=== PATIENT | male | born 1945 | race Caucasian/White ===

== ENCOUNTER 2018-05-19 06:42 | Day surgery (SDC) | payer OTHER ==
[2018-05-17 13:20] LABS: Absolute Lymphocytes (CBC) 1.1 K/uL (0.7-4.9); Absolute Monocytes 0.8 K/uL (0.1-1.3); Basophils % 1.3 % (0-1.3); Eosinophils % 2.9 % (0-4.4); Hematocrit 47.1 % (39.6-49.0); Lymphocytes % 15.5 % (15.3-44.8); MPV 8.6 fL (7.6-11.3); Monocytes % 11.4 % (3.3-12.3); RBC Red Blood Cell Count 4.83 M/uL (4.33-5.43)
[2018-05-17 13:23] LABS: Protime INR 0.99
[2018-05-17 13:29] LABS: BUN Blood Urea Nitrogen 8 mg/dL (7-18); Bicarbonate 29 mmol/L (21-32); Glucose Level 129 mg/dL (74-106); Sodium Level 137 mmol/L (136-145)
--- NOTE | 2018-05-17 13:33 | RAD REPORT ---
EXAM DESCRIPTION: Rossi Samuels And Canelo (2 Views)05/17/2018 1:28 pm CLINICAL HISTORY: Preop COMPARISON: 2015 FINDINGS: Lungs are hyperaerated. The lungs appear clear of acute infiltrate. The heart is normal size IMPRESSION: No acute abnormalities displayed
[2018-05-19] MEDS ORDERED: NA CHLORIDE 0.9% 500 ML ONE (07:19)
[2018-05-19] MEDS ORDERED: HEPA 1000U/500MLS 2,000 UNIT/1,000 ML BAG IV ONE (07:19)
[2018-05-19] MEDS ORDERED: LIDOCAINE 1% MPF 30 ML VIAL ONE (07:19)
[2018-05-19] MEDS ORDERED: FENTANYL CITR 100 MCG/2 ML ONE ×2 (08:02→09:33)
[2018-05-19] MEDS ORDERED: HEPARIN 5000 UNIT/ML 1 ML VIAL ONE (08:02)
[2018-05-19] MEDS ORDERED: ATROPINE SULF 1 MG/10 ML SYR IV ONE (08:02)
[2018-05-19] MEDS ORDERED: MIDAZOLAM HCL 2 MG/2 ML INJ ONE ×2 (08:02→08:10)
[2018-05-19] MEDS ORDERED: MAGNES/ALUMIN/SIMET 30ML UCUP PO ONE (09:30)
--- NOTE | 2018-05-19 17:20 | OP ---
Surgeon: Kalia Esparza MD Procedure: Bilateral carotid angiography. Indication: Abnormal carotid Doppler. Procedure Findings: The patient's right internal carotid artery is totally occluded. The patient's left internal carotid artery has heavy ulcerated plaque at the origin, and about a centimeter and a h fdc beyond the origin of the internal carotid, there is an 80% smooth stenosis. I have recommended a carotid endarterectomy on the left. Procedure In Detail: The patient gave informed consent. He was brought to the cardiac label press operator in a fasting state, sedated with Versed, fentanyl, prepared and draped in usual sterile fashion. Right f emoral artery was used. The tissues around the artery were anesthetized with 1% lidocaine. The jai ry was entered with an 18-gauge needle. A short J-wire 4-Mongolian sheath was placed. We used the [facility] to advance the JR4 catheter to the descending aorta, the very origin of it. I advanced it so we c ould angiogram the right coronary artery, left coronary artery selectively. After adequate pictures were taken, we removed the catheter and then took a sheath shot. We saw adequate anatomy to close th e arteriotomy with an Angio-Seal device. This was done without complications. AKIRA/JOY Voice ID: [id number] Report ID: [id number]
== END 2018-05-19 11:10 | disposition home or self-care (01) ==
LOC: CCL 06:42
PROVIDERS: ATTEND Internal Medicine
DX: I65.23 Occlusion and stenosis of bilateral carotid arteries (principal); J44.9 Chronic obstructive pulmonary disease, unspecified; E78.00 Pure hypercholesterolemia, unspecified; E78.6 Lipoprotein deficiency; F17.210 Nicotine dependence, cigarettes, uncomplicated; Z79.82 Long term (current) use of aspirin; Z79.899 Other long term (current) drug therapy; Z82.49 Family history of ischemic heart disease and other diseases of the circulatory system
CPT/HCPCS: 85025; 80048; 36415; 85610; 85730; 71046; 36222; C1893; C1760; J2250 ×2; J3010; J1644

== ENCOUNTER 2018-05-24 19:58 | Observation (INO) | payer OTHER ==
[2018-05-24 20:44] LABS: Absolute Lymphocytes (CBC) 1.6 K/uL (0.7-4.9); Absolute Monocytes 1.1 K/uL (0.1-1.3); Absolute Neutrophil 6.3 K/uL (1.8-8.0); Basophils % 1.3 % (0-1.3); Eosinophils % 3.8 % (0-4.4); Hematocrit 39.6 % (39.6-49.0); Lymphocytes % 16.6 % (15.3-44.8); MPV 7.7 fL (7.6-11.3); Monocytes % 11.9 % (3.3-12.3); RBC Red Blood Cell Count 4.08 M/uL (4.33-5.43)
--- NOTE | 2018-05-24 20:53 | RAD REPORT ---
EXAM DESCRIPTION: US - Extremity Nonvascular Limited - 05/24/2018 8:39 pm CLINICAL HISTORY: Swelling, mass, pain COMPARISON: None. TECHNIQUE: Sonographic evaluation of the right groin performed. FINDINGS: Clinical history indicates cardiac catheterization approximately 1 week earlier. Small benign-appearing lymph nodes are seen in the right groin. Deeper in the right groin near the va sculature there is a 3 centimeter heterogeneous mass. The adjacent common femoral vein and greater sa phenous vein are clear of thrombus. Common femoral artery is not well visualized on this study. Doppl er evaluation shows blood flow within this mass. Finding is most likely a pseudoaneurysm that is almo st fully thrombosed. The pulsating portion of this mass represents a very small percentage of the tot al volume. The mass has hematoma characteristics ; however, the hematoma should not have any internal blood flow component. IMPRESSION: Approximately 3 centimeter heterogeneous mass in the right groin most likely a nearly fu lly thrombosed pseudoaneurysm. No DVT in the adjacent common femoral vein or greater saphenous vein.
[2018-05-24 20:55] LABS: Protime INR 1.01
[2018-05-24 21:02] LABS: ALT/SGPT 10 U/L (12-78); AST/SGOT 13 U/L (15-37); Albumin 2.9 g/dL (3.4-5.0); Alkaline Phosphatase 60 U/L (45-117); BUN Blood Urea Nitrogen 5 mg/dL (7-18); Bicarbonate 24 mmol/L (21-32); Bilirubin Total 0.5 mg/dL (0.2-1.0); Glucose Level 84 mg/dL (74-106); Potassium 4.3 mmol/L (3.5-5.1); Protein, Total 6.3 g/dL (6.4-8.2); Sodium Level 125 mmol/L (136-145)
[2018-05-24] MEDS ORDERED: NA CHLORIDE 0.9% 1,000 ML ONE (21:06)
--- NOTE | 2018-05-24 21:47 | EDPHYS ---
Physician Documentation [facility] Name: Lei Timmons Age: 72 yrs Sex: Male : 1945 Arrival Date: 05/24/2018 Time: 20:04 Bed 24 Private MD: Meek Sevilla E ED Physician Pino Alvarenga HPI: 05/24 20:20 This 72 yrs old Male presents to ER via Ambulatory with complaints of Penile odilia Problem, Problem With Urinary Catheter. 20:20 The patient presents with swelling, tenderness. Onset: The symptoms/episode odilia began/occurred 5 day(s) ago. Modifying factors: The symptoms are alleviated by remaining still, the symptoms are aggravated by movement, pressure. Associated signs and symptoms: The patient has no apparent associated signs or symptoms. Severity of symptoms: At their worst the symptoms were mild, in the emergency department the symptoms are unchanged. The patient has not experienced similar symptoms in the past. Historical: - Allergies: 20:11 No Known Allergies; jd3 - Home Meds: 20:11 Aspirin Oral [Active]; prostate med [Active]; jd3 - PMHx: 20:11 Hypertension; jd3 - PSHx: 20:11 heart cath; jd3 - Immunization history:: Adult Immunizations unknown. - Social history:: Smoking status: Patient uses tobacco products, smokes two packs cigarettes per day. - Ebola Screening: : Patient negative for fever greater than or equal to 101.5 degrees Fahrenheit, and additional compatible Ebola Virus Disease symptoms. - Family history:: not pertinent. ROS: 20:20 Constitutional: Negative for fever, chills, and weight loss, Eyes: Negative for injury, odilia pain, redness, and discharge, ENT: Negative for injury, pain, and discharge, Neck: Negative for injury, pain, and swelling, Cardiovascular: Negative for chest pain, palpitations, and edema, Respiratory: Negative for shortness of breath, cough, wheezing, and pleuritic chest pain, Abdomen/GI: Negative for abdominal pain, nausea, vomiting, diarrhea, and constipation, Back: Negative for injury and pain, Skin: Negative for injury, rash, and discoloration, Neuro: Negative for headache, weakness, numbness, tingling, and seizure, Psych: Negative for depression, anxiety, suicide ideation, homicidal ideation, and hallucinations, Allergy/Immunology: Negative for hives, rash, and allergies, Endocrine: Negative for neck swelling, polydipsia, polyuria, polyphagia, and marked weight changes, Hematologic/Lymphatic: Negative for swollen nodes, abnormal bleeding, and unusual bruising. 20:20 : Positive for ecchymosis. 20:20 MS/extremity: Positive for ecchymosis, of the right inner thigh and medial aspect of right thigh. Exam: 20:20 Constitutional: This is a well developed, well nourished patient who is awake, alert, odilia and in no acute distress. Head/Face: Normocephalic, atraumatic. Eyes: Pupils equal round and reactive to light, extra-ocular motions intact. Lids and lashes normal. Conjunctiva and sclera are non-icteric and not injected. Cornea within normal limits. Periorbital areas with no swelling, redness, or edema. ENT: Nares patent. No nasal discharge, no septal abnormalities noted. Tympanic membranes are normal and external auditory canals are clear. Oropharynx with no redness, swelling, or masses, exudates, or evidence of obstruction, uvula midline. Mucous membranes moist. Neck: Trachea midline, no thyromegaly or masses palpated, and no cervical lymphadenopathy. Supple, full range of motion without nuchal rigidity, or vertebral point tenderness. No Meningismus. Chest/axilla: Normal chest wall appearance and motion. Nontender with no deformity. No lesions are appreciated. Cardiovascular: Regular rate and rhythm with a normal S1 and S2. No gallops, murmurs, or rubs. Normal PMI, no JVD. No pulse deficits. Respiratory: Lungs have equal breath sounds bilaterally, clear to auscultation and percussion. No rales, rhonchi or wheezes noted. No increased work of breathing, no retractions or nasal flaring. Back: No spinal tenderness. No costovertebral tenderness. Full range of motion. Male : Normal genitalia with no discharge or lesions. MS/ Extremity: Pulses equal, no cyanosis. Neurovascular intact. Full, normal range of motion. Neuro: Awake and alert, GCS 15, oriented to person, place, time, and situation. Cranial nerves II-XII grossly intact. Motor strength 5/5 in all extremities. Sensory grossly intact. Cerebellar exam normal. Normal gait. Psych: Awake, alert, with orientation to person, place and time. Behavior, mood, and affect are within normal limits. 20:20 Abdomen/GI: Inspection: bruising, Bowel sounds: normal, Palpation: mild abdominal tenderness, in the right lower quadrant, Liver: no appreciated palpable abnormalities, Hernia: not appreciated. 20:20 Musculoskeletal/extremity: Extremities: grossly normal except: ecchymosis, pain, ROM: full active range of motion, full passive range of motion, Circulation is intact in all extremities. Sensation intact. Compartment Syndrome exam of affected extremity: is normal. Weight bearing: able to fully bear weight, DVT Exam: negative Homans' sign noted on exam, no appreciated bluish discoloration, no erythema, no increased warmth, pain, swelling, tenderness. Vital Signs: 20:11 BP 145 / 75; Pulse 72; Resp 17 S; Temp 99.8(TE); Pulse Ox 96% on R/A; Weight 74.84 kg jd3 (R); Height 6 ft. 0 in. (182.88 cm) (R); Pain 4/10; 21:05 BP 138 / 72; Pulse 70; Resp 18; Pulse Ox 96% on R/A; tl2 22:59 BP 146 / 75; Pulse 60; Resp 18; Pulse Ox 95% on R/A; tl2 20:11 Body Mass Index 22.38 (74.84 kg, 182.88 cm) jd3 MDM: 20:13 Patient medically screened. [facility] 20:23 Data reviewed: vital signs, nurses notes, lab test result(s), radiologic studies, odilia ultrasound. 05/24 20:20 Order name: CBC with Diff [facility] 05/24 20:20 Order name: Comprehensive Metabolic Panel; Complete Time: 21:34 odilia 05/24 20:20 Order name: PT-INR; Complete Time: 21:34 odilia 05/24 20:20 Order name: Ptt, Activated; Complete Time: 21:34 odilia 05/24 20:21 Order name: CBC with Automated Diff; Complete Time: 21:34 EDMS 05/24 21:35 Order name: Alcohol Level; Complete Time: 08:17 odilia 05/24 21:48 Order name: Urine Osmolality; Complete Time: 23:55 odilia 05/24 21:48 Order name: Urine Sodium Random; Complete Time: 23:55 [facility] 05/24 21:48 Order name: Osmolality, Serum; Complete Time: 08:17 odilia 05/24 22:57 Order name: CBC with Automated Diff EDMS 05/24 22:57 Order name: CBC with Automated Diff; Complete Time: 08:17 EDMS 05/24 22:57 Order name: Comprehensive Metabolic Panel EDMS 05/24 22:57 Order name: Comprehensive Metabolic Panel; Complete Time: 08:17 EDMS 05/24 22:57 Order name: Protime (+INR) EDMS 05/24 20:20 Order name: US Extrmty Nonvasular Limited: right groin, with doppler; Complete Time: odilia 21:34 05/24 22:57 Order name: CONS Pharmacy Consult EDMS 05/24 22:57 Order name: NPO EDMS 05/24 22:57 Order name: Protime (+INR); Complete Time: 08:17 EDMS 05/24 22:57 Order name: PTT, Activated Partial Thromb EDMS 05/24 22:57 Order name: PTT, Activated Partial Thromb; Complete Time: 08:17 EDMS Administered Medications: 20:58 Drug: NS 0.9% 1000 ml Route: IV; Rate: 125 ml/hr; Site: right antecubital; tl2 22:51 Drug: Thiamine 100 mg Route: IV; Rate: bolus; Site: right forearm; tl2 Disposition: 05/24/18 21:46 Hospitalization ordered by Geoffrey Heller for Observation. 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 - Bed requested for Telemetry/MedSurg (observation). - Status is Observation. ss - Condition is Stable. - Problem is new. - Symptoms have improved. UTI on Admission? No Signatures: Dispatcher [employer] EDFL Salima Holguin RN RN kl Anderson, Corey, MD MD cha Smirch, Shelby, RN RN ss Knox, Taylor, RN RN tl2 Vidal Malcolm RN RN Tamica Hernandez ar5 Corrections: (The following items were deleted from the chart) 23:51 21:46 Hospitalization Ordered by Geoffrey Heller MD for Observation. 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 Bed requested for Telemetry/MedSurg (observation). Status is Observation. Condition is Stable. Problem is new. Symptoms have improved. UTI on Admission? No. odilia 05/25 05:46 05/24 23:51 05/24/2018 21:46 Hospitalization Ordered by Geoffrey Heller MD for kl Observation. 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 Bed requested for [facility] ER HOLD. Status is Observation. Condition is Stable. Problem is new. Symptoms have improved. UTI on Admission? No. ar5 05/25 08:24 05:46 05/24/2018 21:46 Hospitalization Ordered by Geoffrey Heller MD for Observation. 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 Bed requested for Telemetry/MedSurg (observation). Status is Observation. Condition is Stable. Problem is new. Symptoms have improved. UTI on Admission? No. kl
--- NOTE | 2018-05-24 21:47 | ER ---
Nurse's Notes [facility] Name: Lei Timmons Age: 72 yrs Sex: Male : 1945 Arrival Date: 05/24/2018 Time: 20:04 Bed 24 Private MD: Meek Sevilla E Diagnosis: Aneurysm of other specified arteries-femoral, pseudo 3 cm;Hypo-osmolality and hyponatremia;Alcohol abuse-chronic Presentation: 05/24 20:08 Presenting complaint: Patient states: "I had a recent heart cath and now I am have a jd3 lot of swelling and my penis has turned black.". Transition of care: patient was not received from another setting of care. Onset of symptoms was May 24, 2018. Risk Assessment: Do you want to hurt yourself or someone else? Patient reports no desire to harm self or others. Initial Sepsis Screen: Does the patient meet any 2 criteria? No. Patient's initial sepsis screen is negative. Does the patient have a suspected source of infection? No. Patient's initial sepsis screen is negative. Care prior to arrival: None. 20:08 Method Of Arrival: Ambulatory jd3 20:08 Acuity: ALYSON 2 jd3 Historical: - Allergies: 20:11 No Known Allergies; jd3 - Home Meds: 20:11 Aspirin Oral [Active]; prostate med [Active]; jd3 - PMHx: 20:11 Hypertension; jd3 - PSHx: 20:11 heart cath; jd3 - Immunization history:: Adult Immunizations unknown. - Social history:: Smoking status: Patient uses tobacco products, smokes two packs cigarettes per day. - Ebola Screening: : Patient negative for fever greater than or equal to 101.5 degrees Fahrenheit, and additional compatible Ebola Virus Disease symptoms. - Family history:: not pertinent. Screenin:13 Abuse screen: Denies threats or abuse. Nutritional screening: No deficits noted. tl2 Tuberculosis screening: No symptoms or risk factors identified. Fall Risk None identified. IV access (20 points). Assessment: 20:30 General: Appears in no apparent distress. uncomfortable, Behavior is calm, cooperative, tl2 appropriate for age. Pain: Complains of pain in right leg and right inner thigh. Neuro: Level of Consciousness is awake, alert, obeys commands. Cardiovascular: Denies chest pain. Respiratory: Airway is patent Respiratory effort is even, unlabored, Respiratory pattern is regular, symmetrical. GI: No signs and/or symptoms were reported involving the gastrointestinal system. : pt reports that penis is darker in color than normal. Derm: Skin is pink, warm \\T\\ dry. Bruising that is dark purple, on right inner thigh. 22:59 Reassessment: Patient appears in no apparent distress at this time. Patient and/or tl2 family updated on plan of care and expected duration. Pain level reassessed. Patient is alert, oriented x 3, equal unlabored respirations, skin warm/dry/pink. Vital Signs: 20:11 BP 145 / 75; Pulse 72; Resp 17 S; Temp 99.8(TE); Pulse Ox 96% on R/A; Weight 74.84 kg jd3 (R); Height 6 ft. 0 in. (182.88 cm) (R); Pain 4/10; 21:05 BP 138 / 72; Pulse 70; Resp 18; Pulse Ox 96% on R/A; tl2 22:59 BP 146 / 75; Pulse 60; Resp 18; Pulse Ox 95% on R/A; tl2 20:11 Body Mass Index 22.38 (74.84 kg, 182.88 cm) jd3 ED Course: 20:04 Patient arrived in ED. am2 20:05 Meek Sevilla MD is Private Physician. am2 20:09 Triage completed. jd3 20:12 Arm band placed on. jd3 20:13 Pino Alvarenga MD is Attending Physician. odilia 20:30 Inserted saline lock: 20 gauge in right forearm, using aseptic technique. Blood tl2 collected. 20:40 US Extrmty Nonvasular Limited: right groin, with doppler In Process Unspecified. EDMS 21:04 Nathalie Hill, SIL is Primary Nurse. tl2 21:13 Patient has correct armband on for positive identification. Placed in gown. Bed in low tl2 position. Call light in reach. Side rails up X 1. Adult w/ patient. 21:45 Geoffrey Heller MD is Hospitalizing Provider. odilia Administered Medications: 20:58 Drug: NS 0.9% 1000 ml Route: IV; Rate: 125 ml/hr; Site: right antecubital; tl2 22:51 Drug: Thiamine 100 mg Route: IV; Rate: bolus; Site: right forearm; tl2 Outcome: 21:46 Decision to Hospitalize by Provider. odilia 05/25 08:24 Patient left the ED. Signatures: Dispatcher [employer] EDMS Pino Alvarenga MD MD cha Smirch, Shelby RN RN ss Nathalie Hill RN RN tl2 Cristina Baltazar Jonathon, RN RN jd3 Corrections: (The following items were deleted from the chart) 05/24 20:12 20:08 Acuity: ALYSON 3 jd3 jd3
[2018-05-24] MEDS ORDERED: THIAMINE 200 MG/2 ML INJ ONE (22:38)
[2018-05-24] MEDS ORDERED: ACETAMINOPHEN 500 MG TAB PO PRN (22:49)
[2018-05-24] MEDS ORDERED: MORPHINE 2 MG/ML SYR IV PRN (22:49)
[2018-05-24] MEDS ORDERED: ONDANSETRON 4 MG/2 ML VIAL IV PRN (22:49)
[2018-05-24] MEDS: NA CHLORIDE 0.9% 1,000 ML IV SCH (23:00)
[2018-05-25 05:52] LABS: Absolute Neutrophil 4.6 K/uL (1.8-8.0); Basophils % 0.7 % (0-1.3); Eosinophils % 5.3 % (0-4.4); Hematocrit 42.4 % (39.6-49.0); Lymphocytes % 14.9 % (15.3-44.8); MPV 7.9 fL (7.6-11.3); Monocytes % 13.5 % (3.3-12.3); RBC Red Blood Cell Count 4.41 M/uL (4.33-5.43)
[2018-05-25 06:05] LABS: Protime INR 1.04
[2018-05-25 06:10] LABS: ALT/SGPT 13 U/L (12-78); AST/SGOT 14 U/L (15-37); Albumin 2.8 g/dL (3.4-5.0); Alkaline Phosphatase 64 U/L (45-117); BUN Blood Urea Nitrogen 5 mg/dL (7-18); Bicarbonate 27 mmol/L (21-32); Bilirubin Total 0.6 mg/dL (0.2-1.0); Glucose Level 69 mg/dL (74-106); Potassium 4.1 mmol/L (3.5-5.1); Protein, Total 6.1 g/dL (6.4-8.2); Sodium Level 134 mmol/L (136-145)
[2018-05-25] MEDS ORDERED: PNEUMOCOCCAL VACCINE 0.5 ML IMVAC ONE (08:00)
[2018-05-25 09:06] VITALS: BMI 20.9
[2018-05-25] MEDS ORDERED: TISSEEL VH 2 ML KIT TOP ONE (10:45)
[2018-05-25 10:46] LABS: Urine Appearance CLEAR; Urine Bilirubin NEGATIVE (NEG); Urine Blood NEGATIVE (NEG); Urine Color YELLOW; Urine Glucose NEGATIVE (NEG); Urine Protein NEGATIVE (NEG)
--- NOTE | 2018-05-25 11:11 | P.HP ---
Certification for Inpatient Patient admitted to: Observation With expected LOS: <2 Midnights Patient will require the following post-hospital care: None Practitioner: I am a practitioner with admitting privileges, knowledge of patient current condition, hospital course, and medical plan of care. Services: Services provided to patient in accordance with Admission requirements found in Title 42 Section 412.3 of the Code of Federal Regulations Patient History Date of Service: 05/24/18 Reason for admission: RIGHT LOWER EXTREMITIES PSEUDOANEURYSM History of Present Illness: The patient is a 72-year-old gentleman who recently had a carotid artery arteriogram. 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 Patient was scheduled for outpatient carotid endarterectomy. Patient has been home for the last few days and has noted swelling in the right groin region. He also has some bruising. Patient came into the ER and an ultrasound revealed an almost completely thrombosed pseudoaneurysm. The patient will be admitted to the hospital for further workup. Allergies No Known Allergies Allergy (Verified 05/17/18 12:45) Home Medications: Aspirin [Adult Aspirin Regimen] 81 mg PO DAILY 05/25/18 Fluticasone/Vilanterol [Breo Ellipta 100-25 Mcg INH] 100 - 125 mg IH PRN Nitroglycerin 0.4 mg SL DAILY 05/25/18 Tamsulosin [Flomax*] 0.4 mg PO DAILY 05/25/18 - Past Medical/Surgical History Has patient received pneumonia vaccine in the past: No Diabetic: No -: hypertension -: prostate problem - Family History Father Family History: Reviewed- Non-Contributory - Social History Smoking Status: Current every day smoker Alcohol use: Yes CD- Drugs: No Caffeine use: Yes Place of Residence: Home Review of Systems 10-point ROS is otherwise unremarkable Physical Examination - Vital Signs Temperature: 97.6 F Blood Pressure: 172/76 Pulse: 72 Respirations: 16 Pulse Ox (%): 95 - Physical Exam General: Alert, In no apparent distress, Oriented x3 HEENT: Atraumatic, PERRLA, Mucous membr. moist/pink, EOMI, Sclerae nonicteric Neck: Supple, 2+ carotid pulse no bruit, No LAD, Without JVD or thyroid abnormality Respiratory: Clear to auscultation bilaterally, Normal air movement Cardiovascular: Regular rate/rhythm, Normal S1 S2, No murmurs Gastrointestinal: Normal bowel sounds, Soft and benign, Non-distended, No tenderness Musculoskeletal: No clubbing, No swelling, No tenderness Integumentary: No rashes Neurological: Normal gait, Normal speech, Normal strength at 5/5 x4 extr, Normal tone, Sensation intact, Cranial nerves 3-12 intact, Normal affect Lymphatics: No axilla or inguinal lymphadenopathy - Studies Laboratory Data (last 24 hrs) 05/24/18 20:30: PT 11.9, INR 1.01, APTT 32.2 05/24/18 20:30: Sodium 125 L, Potassium 4.3, BUN 5 L, Creatinine 0.54 L, Glucose 84, Total Bilirubin 0.5, AST 13 L, ALT 10 L, Alkaline Phosphatase 60 05/24/18 20:30: WBC 9.4 D, Hgb 13.5 L D, Hct 39.6 D, Plt Count 281 Assessment & Plan - Problems (Diagnosis) (1) Pseudoaneurysm of left femoral artery Current Visit: Yes Status: Acute - Plan Plan: 1. Admit to the hospital 2. Cardiology consultation 3. Hold off on anticoagulation 4. monitor H&H closely 5. anti-platelet therapy should be continued 6. Statin therapy 8. GI and DVT prophylaxis Discharge Plan: Home Plan to discharge in: 48 Hours - Advance Directives Does patient have a Living Will: No Does patient have a Durable POA for Healthcare: No - Code Status/Comfort Care Code Status Assessed: Yes Code Status: Full Code Critical Care: No Time Spent Managing PTS Care (In Minutes): 45
[2018-05-25 11:12] LABS: Urine Microscopic Reflex ORDER UMIC
[2018-05-25 11:13] LABS: Urine Bacteria <20 /HPF (NONE SEEN); Urine Culture Reflex Order NOT NEEDED; Urine RBC <5 /HPF (NONE SEEN)
[2018-05-25] MEDS ORDERED: MIDAZOLAM HCL 2 MG/2 ML INJ ONE (12:05)
[2018-05-25] MEDS ORDERED: NA CHLORIDE 0.9% 500 ML ONE (12:05)
[2018-05-25] MEDS ORDERED: FENTANYL CITR 100 MCG/2 ML ONE ×2 (12:06→13:06)
--- NOTE | 2018-05-25 12:53 | RAD REPORT ---
EXAM DESCRIPTION: US - Ultrasound Intraop - 05/25/2018 12:44 pm FINDINGS: Limited sonography was performed during pseudoaneurysm thrombin injection. Images again id entified the mostly thrombosed pseudoaneurysm in the right groin detailed on prior day ultrasound. No suspicious or unexpected finding.
--- NOTE | 2018-05-25 13:36 | P.PN ---
Subjective Date of Service: 05/25/18 Chief Complaint: RIGHT LOWER EXTREMITIES PSEUDOANEURYSM Subjective: Improving Patient seen and examined at bedside. No family at bedside. Chart reviewed and case discussed with nursing staff. Patient admitted for pseudoaneurysm of the femoral artery, right side. He is doing well, no complaints currently. States that pain is well controlled. Denies any chest pain, shortness of breath, dizziness, headaches or vision changes. Review of Systems 10-point ROS is otherwise unremarkable Physical Examination - Vital Signs Temperature: 97.7 F Blood Pressure: 137/67 Pulse: 70 Respirations: 16 Pulse Ox (%): 95 - Physical Exam General: Alert, In no apparent distress, Oriented x3 HEENT: Atraumatic, PERRLA, EOMI Neck: Supple, JVD not distended Respiratory: Clear to auscultation bilaterally, Normal air movement Cardiovascular: Regular rate/rhythm, Normal S1 S2 Gastrointestinal: Normal bowel sounds, No tenderness Musculoskeletal: No tenderness Integumentary: No rashes Neurological: Normal speech, Normal tone, Normal affect Lymphatics: No axilla or inguinal lymphadenopathy - Studies Laboratory Data (last 24 hrs) 05/24/18 20:30: PT 11.9, INR 1.01, APTT 32.2 05/24/18 20:30: Sodium 125 L, Potassium 4.3, BUN 5 L, Creatinine 0.54 L, Glucose 84, Total Bilirubin 0.5, AST 13 L, ALT 10 L, Alkaline Phosphatase 60 05/24/18 20:30: WBC 9.4 D, Hgb 13.5 L D, Hct 39.6 D, Plt Count 281 Assessment And Plan - Plan Pseudoaneurysm of left femoral artery Cardiology consultation. Recommendations appreciated. s/p pseudoaneurysm thrombin injection Hold off on anticoagulation monitor H&H closely anti-platelet therapy should be continued Statin therapy Hypertension Will continue home medication as tolerated DVT prophylaxis: Lovenox GI prophylaxis: None Diet: NPO Disposition: Pending cardiology evaluation and symptomatic improvement.
[2018-05-25] MEDS: NA CHLORIDE 0.9% 1,000 ML IV SCH ×2 (13:55→15:00)
[2018-05-25] MEDS ORDERED: ACETAMINOPHEN 325 MG TABLET PO PRN (14:23)
--- NOTE | 2018-05-25 14:23 | CON ---
History Of Present Illness: Mr. Timmons came to the hospital because of pain in the right groin. Six days ago, he had an angiographic procedure, bilateral carotid angiography was done. He needs caroti d endarterectomy. It has not been done yet. His right internal carotid is totally occluded, the lef t has a significant stenosis. The surgeons have not seen him as of yet. An ultrasound has been done of the right groin. It indicates there is a pseudoaneurysm right at the site of the previous cardia c cath. It is 3 cm in diameter. It caused it a nearly fully thrombosed pseudoaneurysm. On exam it is pulsatile. I do not hear a bruit and I have recommended that we inject some thrombin into the are a and see if we can close off completely and we will see if we can get any blood flow or see any puls atility. We will have an echocardiogram present so we can look at color Doppler flow while we were g etting ready to do it. It may be ready to close off and not need thrombin, but I suspect that is wha t we need to try. The patient has a long history of excessive alcohol and tobacco use. Outpatient medications are aspirin, Breo, nitroglycerin, tamsulosin. He has abnormal Cardiolite stress test recently. Physical Examination: On physical exam, the right femoral area is pulsatile, mildly tender, a little bit red. It is really not a traumatic pseudoaneurysm, so if I do not really see in and out pulsatile flow, we will abort t he procedure, but I will ask him to sign a consent form taken to the cathead operator and will be ready to tr y to close the pseudoaneurysm. AKIRA/JOY Voice ID: [id number] Report ID: [id number]
[2018-05-25] MEDS ORDERED: NITROGLYCERIN 0.4 MG/TAB SL PRN (14:24)
--- NOTE | 2018-05-25 15:15 | RAD REPORT ---
EXAM DESCRIPTION: - CT ANGIO ABD/PELVIS W CONTRAST - 05/25/2018 2:01 pm CLINICAL HISTORY: Right leg pain COMPARISON: May 25, 2018 ultrasound TECHNIQUE: Computed tomography angiography of the abdomen, pelvis and lower extremity were obtained. 100 cc Isovue 370 was administered intravenously. 3D MIPS reconstruction performed All CT scans are performed using dose optimization technique as appropriate and may include automated exposure control or mA/KV adjustment according to patient size. FINDINGS: Erxi-qh-rvsudelu aortic calcifications. An aneurysm is not noted. Minimal thrombus. Awmk-xt-dzjhevft calcifications within the common iliac, internal and external iliac arteries bilater ally. A short-segment high-grade stenosis involves the proximal right superficial femoral artery. A moderate stenosis involves the mid and distal right superficial femoral artery. Mild calcifications within the right popliteal artery with mild narrowing. The proximal and mid right posterior tibial, right anterior tibial and right peroneal arteries are pa tent. The distal right posterior tibial artery is patent. No flow is seen within the distal right per ineal and distal right anterior tibial arteries. 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 It contains a trickle o f contrast IMPRESSION: High-grade stenosis of the proximal right superficial femoral artery. Moderate grade stenosis involving the mid and distal right superficial femoral artery. The distal right anterior tibial and peroneal arteries are not opacified. This appears to be a chroni c finding. 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 It contains a trickle o f contrast which indicates that it is mostly thrombosed
--- NOTE | 2018-05-25 15:15 | RAD REPORT ---
EXAM DESCRIPTION: CT - Lower Ext Angio - 05/25/2018 2:55 pm CLINICAL HISTORY: Right leg pain COMPARISON: June 03, 2018 ultrasound TECHNIQUE: Computed tomography angiography of the abdomen, pelvis and lower extremity were obtained. 100 cc Isovue 370 was administered intravenously. 3D MIPS reconstruction performed All CT scans are performed using dose optimization technique as appropriate and may include automated exposure control or mA/KV adjustment according to patient size. FINDINGS: Tuig-ge-zohzjqja aortic calcifications. An aneurysm is not noted. Minimal thrombus. Fkoy-gu-teffbpzz calcifications within the common iliac, internal and external iliac arteries bilater ally. A short-segment high-grade stenosis involves the proximal right superficial femoral artery. A moderate stenosis involves the mid and distal right superficial femoral artery. Mild calcifications within the right popliteal artery with mild narrowing. The proximal and mid right posterior tibial, right anterior tibial and right peroneal arteries are pa tent. The distal right posterior tibial artery is patent. No flow is seen within the distal right per ineal and distal right anterior tibial arteries. 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 It contains a trickle o f contrast . IMPRESSION: High-grade stenosis of the proximal right superficial femoral artery. Moderate grade stenosis involving the mid and distal right superficial femoral artery. The distal right anterior tibial and peroneal arteries are not opacified. This appears to be a chroni c finding. 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 It contains a trickle o f contrast which indicates that it is mostly thrombosed
--- NOTE | 2018-05-25 23:56 | OP ---
Surgeon: Kalia Esparza MD Mr. Timmons had injection of pseudoaneurysm with thrombin and pressure in order to repair a pseudoaneu rysm and complication of a carotid angiogram 6 days ago. Procedure In Detail: The patient was brought to the cardiac clinical lab clerk in a fasting state, sedated wit h Versed and fentanyl. Lidocaine 1% was used to anesthetize the skin over the pseudoaneurysm. It wa s imaged using ultrasound. A small neck was seen. A very small area of the mass was not thrombosed. We inserted a needle into the area. We were able to get blood flow, injected the thrombin and then applied pressure. The injection was through a 21-gauge needle. He will stay under a C-clamp for 4 hours, then we will release it and do another ultrasound study tomorrow to see if it was closed. If it has not, he will need a pseudoaneurysm repair, surgical technique. AKIRA/JOY Voice ID: [id number] Report ID: [id number]
[2018-05-26] MEDS: NA CHLORIDE 0.9% 1,000 ML IV SCH (03:37)
[2018-05-26 05:18] VITALS: O2SAT 97
[2018-05-26 09:04] VITALS: BP 174/77; TEMP 97.4
--- NOTE | 2018-05-26 09:22 | RAD REPORT ---
EXAM DESCRIPTION: US - Lower Extremity Artery Uni Ltd - 05/26/2018 7:54 am CLINICAL HISTORY: follow up of R femoral pseudoaneurysm Leg pain COMPARISON: Lower Ext Angio dated 05/25/2018; CT ANGIO ABD/PELVIS W CONTRAST dated 05/25/2018; Ultraso und Intraop dated 05/25/2018; Extremity Nonvascular Limited dated 05/24/2018 FINDINGS: Grayscale, color, power spectral Doppler of the right lower extremity arterial system was performed. The patient's previously noted pseudoaneurysm in the region of the right common femoral vein shows si gnificant reduction in flow. Small amount of turbulent flow is seen in the stalk region of the pseudo aneurysm. Biphasic flow is seen throughout the right lower extremity arterial system with right posterior tibia l artery demonstrating monophasic flow. No occlusion seen. IMPRESSION: Pseudoaneurysm the right common femoral artery is again seen. A small trickle of turbule nt flow is seen in the stock region of the pseudoaneurysm.
[2018-05-26 10:28] LABS: Absolute Lymphocytes (CBC) 0.9 K/uL (0.7-4.9); Absolute Monocytes 0.9 K/uL (0.1-1.3); Absolute Neutrophil 5.3 K/uL (1.8-8.0); Eosinophils % 4.1 % (0-4.4); Hematocrit 40.2 % (39.6-49.0); Lymphocytes % 11.7 % (15.3-44.8); MPV 7.8 fL (7.6-11.3); Monocytes % 12.6 % (3.3-12.3); RBC Red Blood Cell Count 4.13 M/uL (4.33-5.43)
[2018-05-26 11:27] LABS: Blood Morphology Comment NOT SEEN (NOT SEEN); Platelet Estimate ADEQ; Urine White Blood Cell Casts OK
--- NOTE | 2018-05-26 11:42 | PN ---
He seems to have less pain in the mass. He says it has resolved. He has severe peripheral vascular disease, but the procedure yesterday did not make that worse, although he was not able to tolerate th e clamp. We will do another ultrasound today to see if the pseudoaneurysm is closed. In either even t he can be discharged later today. He has an appointment to see a surgeon, so he can have a left ca rotid endarterectomy soon and if necessary, the same surgeon could do the pseudoaneurysm repair if ne eded. Hopefully, the procedure yesterday help seal it off, so he would not need surgery. AKIRA/JOY Voice ID: [id number] Report ID: [id number]
--- NOTE | 2018-05-26 12:35 | P.SSS ---
Patient History Date of Service: 05/26/18 Reason for admission: RIGHT LOWER EXTREMITIES PSEUDOANEURYSM History of Present Illness: The patient is a 72-year-old gentleman who recently had a carotid artery arteriogram. 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 Patient was scheduled for outpatient carotid endarterectomy. Patient has been home for the last few days and has noted swelling in the right groin region. He also has some bruising. Patient came into the ER and an ultrasound revealed an almost completely thrombosed pseudoaneurysm. The patient will be admitted to the hospital for further workup. Allergies No Known Allergies Allergy (Verified 05/17/18 12:45) Home Medications: Aspirin [Adult Aspirin Regimen] 81 mg PO DAILY 05/25/18 Fluticasone/Vilanterol [Breo Ellipta 100-25 Mcg INH] 100 - 125 mg IH PRN Nitroglycerin 0.4 mg SL DAILY 05/25/18 Tamsulosin [Flomax*] 0.4 mg PO DAILY 05/25/18 - Past Medical/Surgical History Has patient received pneumonia vaccine in the past: No Diabetic: No -: hypertension -: prostate problem - Social History Smoking Status: Current every day smoker Alcohol use: Yes CD- Drugs: No Caffeine use: Yes Place of Residence: Home Review of Systems 10-point ROS is otherwise unremarkable Physical Examination - Vital Signs Temperature: 97.4 F Blood Pressure: 174/77 Pulse: 66 Respirations: 18 Pulse Ox (%): 94 - Physical Exam General: Alert, In no apparent distress HEENT: Atraumatic, PERRLA, Mucous membr. moist/pink, EOMI, Sclerae nonicteric Neck: Supple, 2+ carotid pulse no bruit, No LAD, Without JVD or thyroid abnormality Respiratory: Clear to auscultation bilaterally, Normal air movement Cardiovascular: Regular rate/rhythm, Normal S1 S2 Gastrointestinal: Normal bowel sounds, No tenderness Musculoskeletal: No tenderness Integumentary: No rashes Neurological: Normal gait, Normal speech, Normal strength at 5/5 x4 extr, Normal tone, Normal affect Lymphatics: No axilla or inguinal lymphadenopathy Treatment Summary: Pseudoaneurysm of left femoral artery Cardiology was consulted. He underwent pseudoaneurysm thrombin injection. His anticoagulation was held. His H&H remained stable. He remained otherwise stable throughout the stay. He was then discharged from cardiology point of view. He does have an appointment scheduled with his surgeon in [place] tomorrow, which she will follow up with. - Disposition Discharge Date: 05/26/18 Disposition: ROUTINE DISCHARGE Condition: GOOD Consultations: Cardiology, Dr. Esparza Patient Discharge Instructions: Please follow up with his surgeon as scheduled. Please return to the emergency room for worsening symptoms Diet: AHA Activity: Ad charity Time Spent Managing Pts Care (In Minutes): 55
== END 2018-05-26 14:46 | disposition home or self-care (01) ==
LOC: ER 19:58 → ERHOLD 23:03 → 2ND 05-25 07:38
PROVIDERS: ADMIT Hospitalist; ATTEND Family Medicine
PROC: 3E053GC Introduction of Other Therapeutic Substance into Peripheral Artery, Percutaneous Approach (ICD-10-PCS; principal; 2018-05-25)
DX: I72.4 Aneurysm of artery of lower extremity (principal); I73.9 Peripheral vascular disease, unspecified; F17.210 Nicotine dependence, cigarettes, uncomplicated
CPT/HCPCS: 36002 ×2; 85025 ×3; 36415 ×2; 80320; 85610 ×2; 84300; 85730 ×2; 80053 ×2; 83930; 83935; 73706; 74174; 76936; 93926; 76998; 76882; 96374; 99284; Q9967; J3411; J2250; J3010 ×2; J7030 ×3; G0378 ×2; 81003; 81015

== ENCOUNTER 2019-11-03 14:25 | Inpatient (IN) | payer OTHER ==
--- OUTSIDE RECORDS SUMMARY | 2019-11-03 14:28 | XMS REPORT | Continuity of Care Document ---
:1945 Author Organization [facility] t Address [address] [place] [address] Care Team Providers Name Role Phone CELINA Attending Clinician Unavailable APOLINAR Attending Clinician Unavailable RADIOLOGY Attending Clinician Unavailable AMIE Attending Clinician Unavailable RYANN Attending Clinician Unavailable Problems Condition Condition Condition Status Onset Resolution Last Treating Co mments Source Name Details Category Date Date Treatment Clinician Date History of History of Problem Resolve Univers chronic chronic d [place] of obstructiv obstructiv [place] [facility]ici disease disease ans History of History of Problem Resolve Univers hypertensi hypertensi d it y of on on [place] Physici ans History of History of Problem Resolve Univers malignant malignant d ity of mesothel[place]hel[place] ans 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 Family History Family Member Diagnosis Comments Start Date Stop Date Source Unknown Family Family history of Family History University of Member ischemic heart [place] Phys icians disease Social History Smoking Status Start Date Stop Date Source Smoker (finding) [facility]icians Medications Ordered Filled Start Stop Current Ordering Indication Dosage Frequency Signature Comments Components Source Medication Medication Date Date Medication? Clinician (SIG) Name Name Breo Breo Yes Univers Ellipta Ellipta ity of AEPB AEPB [place] Physici ans Nitroglycer Nitroglycer Yes U nivers in 0.4 MG in 0.4 MG ity o f Sublingual Sublingual Braydon as Tablet Tablet Physici Sublingual Sublingual ans Tamsulosin Tamsulosin Yes Uni vers HCl CAPS HCl CAPS ity of [place] [facility] ans Aspirin 81 Aspirin 81 Yes Uni vers MG TABS MG TABS ity of [place] Physici ans Albuterol Albuterol Yes Unive rs AERS AERS ity of [place] Physici ans Vital Signs Vital Name Observation Time Observation Value Comments Source Systolic blood 2019-05-04 167 mm[Hg] Location: [facility] 10:37:00 Position: [place] Physician s Sitting Diastolic blood 2019-05-04 76 mm[Hg] Location: [facility] 10:37:00 Position: [place] Physician s Sitting Body height 2019-05-04 71 [in_us] [facility] 10:37:00 [place] Phys[facility] s Weight 2019-05-04 150.125 [lb_av] University o f 10:37:00 [place] [facility] s Body mass index 2019-05-04 20.94 kg/m2 University o f (BMI) [Ratio] 10:37:00 [place] [facility] ns Body temperature 2019-05-04 96.2 [degF] Method: [facility] 10:37:00 Tympanic [place] Phys[facility] s Heart Rate 2019-05-04 59 /min Quality: Normal University o f 10:37:00 [place] Phys[facility] s Respiratory rate 2019-05-04 18 /min Quality: [facility] 10:37[facility] [place] Phys[facility] s O2 SAT 2019-05-04 96 % Source: [facility] 10:37:00 [place] Physician s Systolic blood 2019-05-01 162 mm[Hg] Location: [facility] 10:04:00 Position: [place] Physician s Sitting Diastolic blood 2019-05-01 63 mm[Hg] Location: [facility] 10:04:00 Position: [place] Physician s Sitting Body height 2019-05-01 71 [in_us] [facility] 10:04:00 [place] Physician s Weight 2019-05-01 156.125 [lb_av] University o f 10:04:00 [place] [facility] s Body mass index 2019-05-01 21.78 kg/m2 University o f (BMI) [Ratio] 10:04:00 [place] Physicia ns Body temperature 2019-05-01 96.6 [degF] Method: [facility] 10:04:00 Tympanic [place] Physician s Heart Rate 2019-05-01 69 /min Quality: Normal University o f 10:04:00 [place] [facility] s Respiratory rate 2019-05-01 16 /min Quality: Normal [facility] 10:04:00 [place] Phys[facility] s O2 SAT 2019-05-01 98 % Source: [facility] 10:04:00 [place] Phys[facility] s Systolic blood 2019-04-28 144 mm[Hg] [facility] 10:05:00 Position: [place] Physician s Sitting Diastolic blood 2019-04-28 69 mm[Hg] [facility] 10:05:00 Position: [place] Physician s Sitting Body height 2019-04-28 72 [in_us] University 10:05:00 [place] [facility] s Weight 2019-04-28 151.25 [lb_av] University 10:05:00 [place] [facility] s Body mass index 2019-04-28 20.51 kg/m2 University o f (BMI) [Ratio] 10:05:00 [place] [facility] ns Heart Rate 2019-04-28 64 /min [facility] 10:05:00 [place] [facility] s O2 SAT 2019-04-28 96 % [facility] 10:05:00 [place] [facility] s BP Systolic 2019-01-30 130 mm[Hg] [facility] Position: [place] Physician s Sitting BP Diastolic 2019-01-30 84 mm[Hg] Location: [facility] 10:46:00 Position: [place] Physician s Sitting Height 2019-01-30 72 [in_us] University of 10:46:00 [place] [facility] s Weight 2019-01-30 141.8 [lb_av] University 10:46:00 [place] [facility] s Body Mass Index 2019-01-30 19.23 kg/m2 University o f Calculated 10:46:00 [place] [facility] s Temperature 2019-01-30 98.6 [degF] Method: Oral University of 10:46:00 [place] [facility] s Heart Rate 2019-01-30 70 /min University 10:46:00 [place] [facility] s Procedures Procedure Date / Time Performed Performing Clinician Sour e History of Aortic University [facility] aneurysm repair Physicians Encounters Start End Encounter Admission Attending Care Care Encounter Source Date/Time Date/Time Type Type Clinicians Facility Department ID 2019-04-24 Outpatient [id number] 14:10:19 2019-10-19 2019-10-19 Outpatient [facility] [id number] [facility] 09:41:00 09:41:00 2019-08-10 2019-08-10 [facility] [id number] [facility] 13:06:00 13:06:00 2019-07-20 2019-07-20 Appointmen GALLO PATRICK UTP Otor[facility]olar [id number] Univers 09:30:00 09:30:00 t; Cait PATRICK yngology - i ty of Cait HOLDER [facility] Physici [facility] 2019-07-13 2019-07-13 Appointmen RUBÉN JIANG, [facility] UTP [id number] Univers 15:00:00 15:00:00 t; [facility] 2019-07-06 2019-07-06 Appointmen RUBÉN JIANG UTP UTP [id number] Univers 14:00:00 14:00:00 t; [facility] 2019-07-06 2019-07-06 Outpatient [facility] [id number] [facility] 13:37:00 13:37:00 2019-06-08 2019-06-08 Appointmen RUBÉN JIANG, [facility] UTP [id number] Univers 10:35:00 10:35:00 t; [facility] 2019-05-17 2019-05-17 Appointmen RADIOLOGY, [facility] UTP [id number] Univers 10:30:00 10:30:00 t; MD OJEDA it y of RADIOLOGY, [place] Phys[facility] PROVIDER [facility] 2019-05-11 2019-05-11 Appointmen RUBÉN JIANG, [facility] UTP [id number] Univers 12:00:00 12:00:00 t; [facility] 2019-05-11 2019-05-11 Outpatient [facility] [id number] [facility] 11:50:00 11:50:00 2019-05-04 2019-05-04 Appointmen RADIOLOGY, [facility] [id number] Univers 10:00:00 10:00:00 t; MD LYNETTE ulloa it y of RADIOLOGY, Radiology - T linsey QUESADA [place] [facility] 2019-05-01 2019-05-01 Appointmen RADIOLOGY, [facility] [id number] Univers 09:30:00 09:30:00 t; MD PROVIDER laila it y of RADIOLOGY, Radiology - T linsey QUESADA [place] [facility] 2019-04-28 2019-04-28 Appointmen RADIOLOGY, [facility] Interventio [id number] Univers 09:30:00 09:30:00 t; PROVIDER laila it y of RADIOLOGY, Radiology - T linsey QUESADA [facility] 2019-04-20 2019-04-20 Appointmen RUBÉN JIANG UTP UTP [id number] Univers 14:20:00 14:20:00 t; Cait JIANG of [facility] [place] Cait [facility] 2019-03-30 2019-03-30 Outpatient [id number] [facility] 12:12:00 12:12:00 2019-02-27 2019-02-27 Appointmen GALLO PATRICK UTP UTP [id number] Univers 09:30:00 09:30:00 t; Cait PATRICK M.D. [facility] 2019-02-21 2019-02-21 Outpatient [facility] [id number] [facility] 07:20:00 07:20:00 2019-02-17 2019-02-17 Outpatient [facility] [id number] [facility] 08:56:00 08:56:00 2019-02-01 2019-02-01 Appointmen RUBÉN JIANG UTP UTP [id number] Univers 10:30:00 10:30:00 t; Cait JIANG of [facility] [place] Cait [facility] 2019-01-30 2019-01-30 Appointmen GALLO PATRICK, [facility] [id number] Univers 10:15:00 10:15:00 t; Cait PATRICK yngology - i ty romana HOLDER M.D. [facility] [place] 2019-01-20 2019-01-20 Outpatient [facility] [id number] [facility] 12:12:00 12:12:00 2019-01-05 2019-01-05 Appointmen RUBÉN JIANG UTP UTP [id number] Univers 14:30:00 14:30:00 t; Cait JIANG [place] M.D. Physici ans 2018-12-21 2018-12-21 Appointmen APOLINARGIOVANACONNER, [facility] UTP [id number] Univers 10:30:00 10:30:00 t; Cait JIANG of [facility] Physici ans 2018-12-19 2018-12-19 Appointmen AMIE, [facility] UTP [id number] Univers 14:30:00 14:30:00 t; RENA HOLLOWAY itcleopatra Cait CHASE [facility] Physici ans 2018-12-07 2018-12-07 Outpatient [facility] [id number] [facility] 11:06:00 11:06:00 2018-12-07 2018-12-07 Appointmen APOLINARRUBÉN, [facility] UTP [id number] Univers 10:30:00 10:30:00 t; Cait JIANG [facility] Physici ans 2018-11-23 2018-11-23 Appointmen APOLINAR RUBÉN, [facility] UTP [id number] Univers 10:30:00 10:30:00 t; Cait JIANG [facility] Physici ans 2018-11-07 2018-11-07 Appointmen APOLINARRUBÉN, [facility] UTP [id number] Univers 12:00:00 12:00:00 t; Cait JIANG of [facility] Physici ans 2018-10-24 2018-10-24 Appointmen APOLINAR GIOVANACONNER, [facility] UTP [id number] Univers 11:30:00 11:30:00 t; Cait JIANG [facility] Physici ans 2018-10-09 2018-10-09 Emergency E [facility] [id number] [facility] 17:50:00 17:50:00 2018-10-05 2018-10-05 Appointmen APOLINAR GIOVANACONNER, [facility] UTP [id number] Univers 13:45:00 13:45:00 t; Cait JIANG [facility] Physici ans 2018-10-05 2018-10-05 Outpatient [facility] [id number] [facility] 09:29:00 09:29:00 2018-09-28 2018-09-28 Appointmen RUBÉN JIANG, [facility]TP UTP [id number] Univers 10:40:00 10:40:00 t; Cait JIANG of [facility] Physic ans 2018-09-26 2018-09-26 [facility] [id number] [facility] 15:22:00 15:22:00 2018-09-21 2018-09-21 Appointmen APOLINARRUBÉN, UTP UTP [id number] Univers 10:00:00 10:00:00 t; Cait JIANG of [facility] Physic ans 2018-09-14 2018-09-14 Appointmen APOLINARRUBÉN, UTP UTP [id number] Univers 09:30:00 09:30:00 t; Cait JIANG of [facility] Physici ans 2018-09-07 2018-09-07 Appointmen APOLINARRUBÉN, UTP UTP [id number] Univers 14:00:00 14:00:00 t; Cait JIANG of [facility] Physic ans 2018-08-31 2018-08-31 Outpatient [facility] [id number] [facility] 13:14:00 13:14:00 2018-08-31 2018-08-31 Appointmen RUBÉN JIANG, UTP UTP [id number] Univers 11:30:00 11:30:00 t; Cait JIANG of [facility] Physic ans 2018-08-25 2018-08-25 Outpatient [facility] [id number] [facility] 11:08:00 11:08:00 2018-08-17 2018-08-17 Appointmen APOLINARRUBÉN, UTP UTP [id number] Univers 10:45:00 10:45:00 t; Cait JIANG of [facility] Physici ans 2018-08-04 2018-08-04 Appointmen APOLINARRUBÉN, UTP UTP [id number] Univers 09:45:00 09:45:00 t; Cait JIANG of [facility] Physici ans 2018-07-21 2018-07-21 Appointmen APOLINARRUBÉN, [facility] UTP [id number] Univers 10:30:00 10:30:00 t; [facility]ait [facility] 2018-07-21 2018-07-21 Outpatient [facility] [id number] [facility] 08:38:00 08:38:00 2018-07-07 2018-07-07 Appointmen APOLINARRUBÉN, [facility] UTP [id number] Univers 16:00:00 16:00:00 t; Cait [facility]ANG [facility] 2018-07-07 2018-07-07 Appointmen GALLO PATRICK, [facility]TP [id number] Univers 09:30:00 09:30:00 t; Cait PATRICK M.D. [place] Physici ans 2018-06-29 2018-06-29 Appointmen APOLINAR RUBÉN, [facility] UTP [id number] Univers 13:30:00 13:30:00 t; Cait [facility]ANG [facility] 2018-06-29 2018-06-29 Outpatient [facility] [id number] [facility] 07:53:00 07:53:00 2018-06-23 2018-06-23 Outpatient [facility] [id number] [facility] 10:47:00 10:47:00 2018-06-20 2018-06-20 Outpatient [facility] [id number] [facility] 12:49:00 12:49:00 2018-06-20 2018-06-20 Appointmen APOLINAR GIOVANACONNER, [facility] UTP [id number] Univers 12:00:00 12:00:00 t; Cait JIANG [facility] 2018-06-16 2018-06-16 Appointmen GALLO PATRICK, [facility] [id number] Univers 10:15:00 10:15:00 t; Cait PATRICK M.D. [place] Physici ans 2018-06-08 2018-06-08 Outpatient [facility] [id number] [facility] 10:37:00 10:37:00 2018-06-06 2018-06-06 Appointmen GALLO PATRICK, [facility]TP [id number] [facility] 14:15:00 14:15:00 t; Cait PATRICK M.D. [place] Aida monsalve 2018-05-31 2018-05-31 Outpatient [facility]SE [id number] 07:40:00 07:40:00 [facility] 2018-05-27 2018-05-27 Appointmen MUSA GARZON UTP [id number] [facility] 11:00:00 11:00:00 t; Delfino MA M.D. [place] Aida MA M.D. 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 Status postchemoradiation, last dose of chemotherapy on 02/01/2019. Normal esophagoscopyand biopsy dated 02/21/2019. Restaging.COMPARISON: FDG PET/CT dated 06/20, 08/23, and 11/14/2018.TECHNIQUE: Approximately 60 minutes after IV injection of 12.47 mCi FDG, PET/CTimaging was performed from the level of the skull base to the midthigh.FINDINGS:No areas of increased FDG uptake are seen in the esophagus or mediastinumconcerning for local tumor recurrence. No FDG avid lymphadenopathy isidentified concerning for ongoing mauricio metastases.The FDG avid nodules seen along the inferior aspect of the left parotid glandremains unchanged, corresponding to the known biopsy-proven Warthin's tumor.Widespread bone marrow FDG uptake, more prominent within the inferior aspect ofthe sternum, slightly decreased when compared with the most recent scan dated11/14/2018. Extensive FDG uptake associated with the cervical and thoracicparaspinal muscles, scalene muscles and intercostal muscles bilaterally.Other organs:Head and neck: There is no abnormal increased or decreased FDG activity in theimaged brain and cervical regions.Chest: Interval worsening of the right-sided pleural effusion and improvementof the left pleural effusion. Unchanged smooth pericardial thickening.Extensive centrilobular and panlobular emphysema bilaterally. Atheromatouscalcification of the thoracic and abdominal aorta and its main branches.Multiple colonic diverticula are seen, without associated inflammatory changes.A stable punctate soft tissue nodule is identified along the anterior aspect ofthe anterior segment of the right superior lung lobe [series 3, image 124]. NoFDG-avid pulmonary nodules or adenopathy are seen. Abdomen and pelvis: No focal abnormal FDG uptake is identified in the liver,bilateral adrenals, spleen, or pancreas. No FDG avid lymphadenopathy is seenin the retroperitoneum and pelvis. Extensive atheromatous calcification of theaorta and its main branches.Skeleton: No focal abnormal FDG activity is identified in the skeleton tosuggest bony metastasis.IMPRESSION:1. No abnormal FDG uptake in the esophagus or the thorax to suggest local ordistant tumor recurrence. Ongoing surveillance recommended.2. Bilateral pleural effusions, right greater than left.3. Stable left parotid FDG avid lesion corresponding to the known Warthin'stumor.--This report was dictated by a Filter Plant Operator/Fellow/Physician Mosaic Worker. Ihave personallyreviewed the images as well as the interpretation and agree with the findings.Read by: Frederic No Resident/Fellow/PhysicianAss istant: Frederic Noictated Date/time: 03/01/19 12:47Electronically Signed by: Tiffanie Luke MD 03/01/2014:46FINAL REPORT
[2019-11-03 15:34] LABS: Absolute Lymphocytes (CBC) 0.7 K/uL (0.7-4.9); Basophils % 0.7 % (0-1.3); Hematocrit 41.4 % (39.6-49.0); Lymphocytes % 8.1 % (15.3-44.8); Protime INR 1.02; RBC Red Blood Cell Count 4.25 M/uL (4.33-5.43)
--- NOTE | 2019-11-03 15:35 | RAD REPORT ---
EXAM DESCRIPTION: RAD - Chest Single View - 11/03/2019 3:01 pm CLINICAL HISTORY: Cough;SOB Chest pain. COMPARISON: Chest Pa And Lat (2 Views) dated 05/17/2018; CHEST PA AND LAT 2 VIEW dated 06/01/2014 FINDINGS: Portable technique limits examination quality. Moderate to large seen involving the right hemithorax likely represents a pneumothorax. The pneumotho rax probably is greater than 50% of lung volume. The left lung is grossly clear. The heart is moderat deborah enlarged. IMPRESSION: Large right pneumothorax. Findings were communicated to Dr. Wilkinson in the ER at the time of dictation.
[2019-11-03 15:50] LABS: ALT/SGPT 16 U/L (12-78); Albumin 3.5 g/dL (3.4-5.0); Alkaline Phosphatase 67 U/L (45-117); BUN Blood Urea Nitrogen 11 mg/dL (7-18); Bicarbonate 30 mmol/L (21-32); Bilirubin Direct < 0.1 mg/dL (0-0.2); Bilirubin Total 0.3 mg/dL (0.2-1.0); Glucose Level 107 mg/dL (74-106); NT PRO-BNP 790 pg/mL (<125); Protein, Total 7.1 g/dL (6.4-8.2); Sodium Level 136 mmol/L (136-145); Troponin (Emerg Dept Use Only) < 0.02 ng/mL (0.0-0.045)
[2019-11-03 15:55] LABS: AST/SGOT 17 U/L (15-37)
[2019-11-03] MEDS ORDERED: ASPIRIN 81 MG CHEWABLE TABLET ONE (15:55)
[2019-11-03 15:56] LABS: Magnesium 1.9 mg/dL (1.8-2.4)
[2019-11-03] MEDS ORDERED: LORazepam 2 MG/ML VIAL ONE (16:18)
[2019-11-03] MEDS ORDERED: LIDOCAINE 1% MPF 30 ML VIAL ONE (16:18)
[2019-11-03] MEDS ORDERED: MORPHINE 2 MG/ML SYR ONE (16:18)
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
--- NOTE | 2019-11-03 16:59 | P.BOP ---
Preoperative diagnosis: right pneumothorax, hx og esophageal cancer Postoperative diagnosis: same Primary procedure: Emergent right chest tube placement Estimated blood loss: <10cc Specimen: none Findings: pleural effusions and PTX Anesthesia: Local Complications: None Drain(s): Other Transferred to: Other (ER) Condition: Good
--- NOTE | 2019-11-03 16:59 | EDPHYS ---
Physician Documentation [facility] Name: Lei Timmons Age: 73 yrs Sex: Male : 1945 Arrival Date: 11/03/2019 Time: 14:28 Bed 2 Private MD: Meek Sevilla E ED Physician Lalo Wilkinson HPI: 11/02 15:13 This 73 yrs old Male presents to ER via Wheelchair with complaints of Blood snw Pressure Problem. 15:13 Onset: The symptoms/episode began/occurred last week, and became persistent. Associated snw signs and symptoms: Pertinent positives: syncope, fatigue, malaise. Modifying factors: The patient symptoms are alleviated by nothing. The patient has experienced similar episodes in the past. It is unknown whether or not the patient has recently seen a physician. 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 Pt had radiation and chemo and there is currently no evidence of disease.. Historical: - Allergies: 14:44 No Known Allergies; bp - Home Meds: 14:44 UNKNOWN [Active]; bp 15:40 Breo Ellipta inhalation inhalation [Active]; trazodone 100 mg Oral tab [Active]; sv Albuterol Inhl [Active]; Lasix 20 mg Oral tab [Active]; Flomax 0.4 mg Oral cp24 [Active]; Aspirin Oral 800 mg [Active]; - PMHx: 14:44 Hypertension; COPD; Cancer; ESOPHAGEAL; bp - Immunization history:: Adult Immunizations up to date. - Social history:: Smoking status: Patient reports the use of cigarette tobacco products, smokes one pack cigarettes per day. ROS: 15:12 Eyes: Negative for injury, pain, redness, and discharge, ENT: Negative for injury, snw pain, and discharge, Neck: Negative for injury, pain, and swelling. 15:12 Abdomen/GI: Negative for abdominal pain, nausea, vomiting, diarrhea, and constipation, Back: Negative for injury and pain, : Negative for injury, bleeding, discharge, and swelling, MS/Extremity: Negative for injury and deformity, Skin: Negative for injury, rash, and discoloration, Neuro: Negative for headache, weakness, numbness, tingling, and seizure, Psych: Negative for depression, anxiety, suicide ideation, homicidal ideation, and hallucinations. 15:12 Constitutional: Positive for malaise. 15:12 Cardiovascular: Positive for orthopnea, syncope from hypotension 4 days ago. 15:12 Respiratory: Positive for cough, shortness of breath, wheezing, hx of mesothelioma. Exam: 14:49 Head/Face: Normocephalic, atraumatic. Eyes: Pupils equal round and reactive to light, snw extra-ocular motions intact. Lids and lashes normal. Conjunctiva and sclera are non-icteric and not injected. Cornea within normal limits. Periorbital areas with no swelling, redness, or edema. ENT: Nares patent. No nasal discharge, no septal abnormalities noted. Tympanic membranes are normal and external auditory canals are clear. Oropharynx with no redness, swelling, or masses, exudates, or evidence of obstruction, uvula midline. Mucous membranes moist. Neck: Trachea midline, no thyromegaly or masses palpated, and no cervical lymphadenopathy. Supple, full range of motion without nuchal rigidity, or vertebral point tenderness. No Meningismus. Chest/axilla: Normal chest wall appearance and motion. Nontender with no deformity. No lesions are appreciated. Cardiovascular: Regular rate and rhythm with a normal S1 and S2. No gallops, murmurs, or rubs. Normal PMI, no JVD. No pulse deficits. 14:49 Abdomen/GI: Soft, non-tender, with normal bowel sounds. No distension or tympany. No guarding or rebound. No evidence of tenderness throughout. Back: No spinal tenderness. No costovertebral tenderness. Full range of motion. Skin: Warm, dry with normal turgor. Normal color with no rashes, no lesions, and no evidence of cellulitis. MS/ Extremity: Pulses equal, no cyanosis. Neurovascular intact. Full, normal range of motion. Neuro: Awake and alert, GCS 15, oriented to person, place, time, and situation. Cranial nerves II-XII grossly intact. Motor strength 5/5 in all extremities. Sensory grossly intact. Cerebellar exam normal. Normal gait. Psych: Awake, alert, with orientation to person, place and time. Behavior, mood, and affect are within normal limits. 14:49 Constitutional: The patient appears alert, awake, frail, restless, uncomfortable. 14:49 ECG was reviewed by the Attending Physician. 14:49 Respiratory: mild respiratory distress is noted, Respirations: accessory muscle usage, prolonged exhalation, shallow respirations, tachypnea, Breath sounds: decreased breath sounds, that are moderate, are heard in the left posterior upper lobe and left posterior lower lobe, rhonchi. Vital Signs: 14:41 BP 187 / 81; Pulse 74; Resp 24; Temp 97.8; Pulse Ox 96% ; Weight 72.57 kg; Height 5 ft. bp 11 in. (180.34 cm); 15:19 BP 165 / 89; Pulse 70; Resp 20; Pulse Ox 100% on R/A; bp 15:58 BP 199 / 109; Pulse 65; Resp 21; Pulse Ox 100% on 15% Non-rebreather mask; bp 16:55 BP 186 / 95; Pulse 64; Resp 21; Pulse Ox 100% ; bp 19:15 BP 189 / 91; Pulse 67; Resp 18; Pulse Ox 100% on Non-rebreather mask; mg2 19:33 BP 184 / 88; Pulse 71; Resp 18; Temp 98; Pulse Ox 100% on Non-rebreather mask; mg2 14:41 Body Mass Index 22.32 (72.57 kg, 180.34 cm) bp Procedures: 16:55 Chest tube insertion: the site was prepped in sterile fashion, Tube size: a 28 nigerian snw chest tube was inserted, introduced in right anterior chest wall, in the right lateral anterior chest, to pleur-e-vac, dressed with foam tape, silk tape, the patient tolerated the procedure well, procedure per Dr. Kennedy. MDM: 14:49 Patient medically screened. snw 16:58 Data reviewed: vital signs, nurses notes. Data interpreted: Pulse oximetry: on room air snw is 100 %. Interpretation: normal. Counseling: I had a detailed discussion with the patient and/or guardian regarding: the historical points, exam findings, and any diagnostic results supporting the discharge/admit diagnosis, lab results, radiology results, the need for further work-up and treatment in the hospital. Physician consultation: Fazal Soares DO was called at 17:00, was contacted at 17:00, regarding admission, to the telemetry unit. 11/02 14:48 Order name: Basic Metabolic Panel; Complete Time: 15:56 snw 11/02 14:48 Order name: CBC with Diff; Complete Time: 15:40 snw 11/02 14:48 Order name: LFT's; Complete Time: 15:56 snw 11/02 14:48 Order name: Magnesium; Complete Time: 15:56 snw 11/02 14:48 Order name: NT PRO-BNP; Complete Time: 15:56 snw 11/02 14:48 Order name: PT-INR; Complete Time: 15:40 snw 11/02 14:48 Order name: Troponin (emerg Dept Use Only); Complete Time: 15:56 snw 11/02 14:48 Order name: XRAY Chest (1 view); Complete Time: 15:40 snw 11/02 14:48 Order name: Procalcitonin; Complete Time: 16:00 snw 11/02 14:48 Order name: Blood Culture Adult (2) snw 11/02 14:48 Order name: Lactate; Complete Time: 15:52 snw 11/02 16:43 Order name: Chest Single View XRAY; Complete Time: 17:04 snw 11/02 17:07 Order name: Chest Single View EDMS 11/02 14:48 Order name: EKG; Complete Time: 14:48 snw 11/02 14:48 Order name: Cardiac monitoring; Complete Time: 14:51 snw 11/02 14:48 Order name: EKG - Nurse/Tech; Complete Time: 14:51 w 11/02 14:48 Order name: IV Saline Lock; Complete Time: 15:34 snw 11/02 14:48 Order name: Labs collected and sent; Complete Time: 15:34 snw 11/02 14:48 Order name: O2 Per Protocol; Complete Time: 14:52 w 11/02 14:48 Order name: O2 Sat Monitoring; Complete Time: 14:52 w 11/02 15:26 Order name: Misc. Order: med list - pt was calling Daughter for list; Complete Time: snw 15:56 11/02 15:51 Order name: Chest Tube Setup; Complete Time: 15:55 w 11/02 15:51 Order name: Chest Tube Consent; Complete Time: 16:51 snw 11/02 15:52 Order name: IV - Large Bore; Complete Time: 15:56 snw 11/02 15:58 Order name: Consult Surgery-Paul Kennedy MD (GENERAL SURGERY); Complete Time: 16:00 snw EC:49 Rate is 76 beats/min. Rhythm is regular. QRS [place] is Normal. QRS interval is normal. QT snw interval is prolonged. Clinical impression: NSR w/ Non-specific ST/T Changes. Administered Medications: 15:50 Not Given (await procedure): Aspirin Chewable Tablet 324 mg PO once; 81 mg tablets x 4 snw 16:00 Drug: morphine 2 mg Route: IVP; Site: left forearm; bp 16:45 Follow up: Response: Pain is decreased bp 16:00 Drug: Ativan 1 mg Route: IVP; Site: left forearm; bp 16:45 Follow up: Response: Anxiety decreased bp Disposition: 11/03 07:07 Co-signature as Attending Physician, Lalo Wilkinson MD I agree with the assessment and kdr plan of care. Disposition: 11/03/19 16:58 Hospitalization ordered by Fazal Soares for Inpatient Admission. Preliminary diagnosis are Primary spontaneous pneumothorax, Pleural effusion, not elsewhere classified. - Bed requested for Telemetry/MedSurg (Inpatient). - Status is Inpatient Admission. mg2 - Condition is Stable. - Problem is new. - Symptoms have worsened. Signatures: Dispatcher [employer] EDNY Kay Junior, RN SIL Lalo Wilkinson MD MD [facility] Celina Rico, CORPORATE COMMUNICATIONS MANAGER-C CORPORATE COMMUNICATIONS MANAGER-Csnw Fermin Price, RN RN bp Kaye Alva Michele, RN RN mg2 Corrections: (The following items were deleted from the chart) 11/02 16:55 16:45 Chest Single View+RAD.RAD.BRZ ordered. EDNY EDMS 17:36 16:58 Hospitalization Ordered by Fazal Soares DO for Inpatient Admission. Preliminary eb diagnosis is Primary spontaneous pneumothorax; Pleural effusion, not elsewhere classified. Bed requested for Telemetry/MedSurg (Inpatient). Status is Inpatient Admission. Condition is Stable. Problem is new. Symptoms have worsened. snw 19:43 17:36 11/03/2019 16:58 Hospitalization Ordered by Fazal Soares DO for Inpatient mg2 Admission. Preliminary diagnosis is Primary spontaneous pneumothorax; Pleural effusion, not elsewhere classified. Bed requested for Telemetry/MedSurg (Inpatient). Status is Inpatient Admission. Condition is Stable. Problem is new. Symptoms have worsened. eb
--- NOTE | 2019-11-03 17:01 | RAD REPORT ---
EXAM DESCRIPTION: RAD - Chest Single View - 11/03/2019 4:55 pm CLINICAL HISTORY: chest tube placement Chest pain. COMPARISON: Chest Single View dated 11/03/2019; Chest Pa And Lat (2 Views) dated 05/17/2018; CHEST PA A ND LAT 2 VIEW dated 06/01/2014 FINDINGS: Portable technique limits examination quality. Right-sided large bore chest tube has been placed directed cephalad. Previously noted pneumothorax martin s been decompressed. Patchy opacity in the right base may be related to mild re-expansion edema. The heart is mildly prominent in size. The left lung is grossly clear.
--- NOTE | 2019-11-03 17:35 | P.HP ---
Certification for Inpatient Patient admitted to: Inpatient With expected LOS: >2 Midnights Patient will require the following post-hospital care: None Practitioner: I am a practitioner with admitting privileges, knowledge of patient current condition, hospital course, and medical plan of care. Services: Services provided to patient in accordance with Admission requirements found in Title 42 Section 412.3 of the Code of Federal Regulations Patient History Date of Service: 11/03/19 Primary Care Provider: Dr. Sevilla Reason for admission: Shortness of breath History of Present Illness: 73-year-old male with history of esophageal cancer status post chemo and radiation, COPD, history of mesothelioma, Coronary artery disease. Patient reports increasing shortness of breath over the past month. He apparently passed out on Wednesday. Today shortness of breath got worse. He had some mild chills. Denies any fever, chest pain. He came to the ER for further evaluation. In the ER patient was evaluated. Patient found to have a large right pneumothorax. Patient had emergent chest tube placed by surgery. White count 9.0, hemoglobin 14.3. Platelet count 246. Sodium 136, potassium 4.0. BUN of 11, creatinine 0.89 with a GFR of 84. Glucose 107. Troponin unremarkable. BMP unremarkable. Pro calcitonin unremarkable. Lactic acid normal range. Blood pressure was elevated. Patient admitted for further evaluation and treatment. When I saw the patient ER, patient appeared stable. Patient on non-rebreather. Patient denies any headaches, dizziness. Allergies No Known Allergies Allergy (Verified 05/17/18 12:45) Home medications list reviewed: Yes Home Medications: Aspirin [Adult Aspirin Regimen] 81 mg PO DAILY 05/25/18 Fluticasone/Vilanterol [Breo Ellipta 100-25 Mcg INH] 100 - 125 mg IH PRN 05/25/18 Nitroglycerin 0.4 mg SL DAILY 05/25/18 Tamsulosin [Flomax*] 0.4 mg PO DAILY 05/25/18 - Past Medical/Surgical History Diabetic: No -: Hypertension -: BPH -: Esophageal stage IV cancer status post chemo/radiation -: Mesothelioma -: Coronary artery disease -: Tobacco abuse Past Surgical History: Patient denies surgical history Psychosocial/ Personal History: - Family History Family History: Reviewed- Non-Contributory - Social History Smoking Status: Heavy Tobacco smoker (>10 cigarettes/day) Alcohol use: Yes CD- Drugs: No Caffeine use: Yes Place of Residence: Home Review of Systems General: Weakness, As per HPI Eyes: Unremarkable ENT: Unremarkable Respiratory: Shortness of Breath, SOB with Excertion, As per HPI Cardiovascular: Unremarkable Gastrointestinal: Unremarkable Genitourinary: Unremarkable Musculoskeletal: Unremarkable Integumentary: Unremarkable Neurological: As per HPI Lymphatics: Unremarkable Physical Examination - Physical Exam General: Alert, In no apparent distress, Oriented x3, Cooperative HEENT: Atraumatic, Normocephalic, Mucous membr. moist/pink Neck: Supple Respiratory: Other (Chest tube in place to the right side good air movement to the left) Cardiovascular: Normal pulses, Regular rate/rhythm Gastrointestinal: Normal bowel sounds, Soft and benign, No tenderness, No masses, No rebound, No guarding Integumentary: No tenderness/swelling, No erythema, No warmth, No cyanosis Neurological: Normal speech, Normal strength at 5/5 x4 extr, Normal tone, Normal affect - Studies Laboratory Data (last 24 hrs) 11/03/19 15:15: PT 12.0, INR 1.02 11/03/19 15:15: WBC 9.0, Hgb 14.3, Hct 41.4, Plt Count 246 11/03/19 15:15: Sodium 136, Potassium 4.0, BUN 11, Creatinine 0.89, Glucose 107 H, Magnesium 1.9, Total Bilirubin 0.3, AST 17, ALT 16, Alkaline Phosphatase 67 Assessment and Plan - Plan Impression: Dyspnea secondary to large right pneumothorax status post emergent chest tube placement COPD History of mesothelioma History of esophageal cancer stage IV status post chemo-radiation Hypertension uncontrolled BPH Tobacco abuse Plan: Dyspnea secondary to large right pneumothorax status post emergent chest tube placement: Patient be admitted for further evaluation and treatment. Chest tube in place. Continue monitor chest tube. Pulmonology consulted to further evaluate. Surgery consulted status post chest tube placement. Will maintain oxygen above 93%. Will provide DVT prophylaxis. Will continue with COPD medication. Get blood pressure better controlled. Continue monitor closely. Recheck chest x-ray tomorrow. Anticipate plan of care to continue for the next 3-5 days. COPD: Will provide medication for COPD. Maintain oxygen above 93%. Pulmonology consulted. History of mesothelioma: Pulmonary consulted. History of esophageal cancer stage IV status post chemo-radiation: Patient reports this has been treated. He sees oncology as an outpatient. Hypertension uncontrolled: Need blood pressure better control. Will start lisinopril. Will consider additional medication. BPH: Restart Flomax Tobacco abuse: Cessation addressed. Will provide nicotine patch. Patient plans to quit. Discharge Plan: Home Plan to discharge in: Greater than 2 days - Advance Directives Does patient have a Living Will: No Does patient have a Durable POA for Healthcare: No - Code Status/Comfort Care Code Status Assessed: Yes (Patient full code) Time Spent Managing Pts Care (In Minutes): 55
[2019-11-03] MEDS ORDERED: HYDRALAZINE HCL 20 MG/ML VIAL IV PRN (20:20)
[2019-11-03] MEDS ORDERED: ONDANSETRON 4 MG/2 ML VIAL IV PRN (20:20)
[2019-11-03] MEDS ORDERED: ACETAMINOPHEN 500 MG TAB PO PRN (20:20)
[2019-11-03 20:26] VITALS: BMI 21.5
[2019-11-03] MEDS: MORPHINE 2 MG/ML SYR IV PRN (20:49)
[2019-11-03] MEDS ORDERED: lisinopriL 10 MG TAB PO SCH (21:00)
[2019-11-03] MEDS ORDERED: NA CHLORIDE 0.9% 500 ML IV ONE (21:16)
[2019-11-03] MEDS ORDERED: NA CHLORIDE 0.9% 1,000 ML ONE (21:25)
--- NOTE | 2019-11-03 21:33 | P.PN ---
Date of Service: 11/03/19 Rapid response was called. Patient was admitted earlier this evening for large pneumothorax and received emergent chest tube placement with general surgeon while in the emergency department. Patient was very hypertensive with blood pressure 200 systolic manual and 10/10 pain. Nursing staff had given patient 10 mg IV hydralazine, 2 mg morphine and had recently performed nasal swab for Dale virus when patient began complaining of dizziness/lightheadedness and saturations dropped. When I arrived to patient's bedside blood pressure was 80/40, saturations were improving and at approximately 92% with patient on non- rebreather. Patient was given 500 cc normal saline bolus and placed in Trendelenburg position. Chest tube still with good seal and drainage. Breath sounds clear to auscultate bilaterally. No signs of tracheal deviation. Stat chest x-ray ordered, hospitalist attending called. Will discontinue hydralazine and allow for some permissive hypertension, will treat pain with [place], tramadol. Patient be admitted to the ICU for close monitoring due to episode of hypotension, hypoxia. Patient is recovering well, blood pressure currently 113/60 and saturations are within normal limits. Patient states he is feeling much better at this time. Will follow up on chest x-ray. <Gasper Branch - Last Filed: 11/03/19 21:29> Discuss with Gasper Branch NP. Agree with evaluation and plan of care. Care was discussed with nurse practitioner. Agree with plan. Please see progress note for details. <Fazal Soares - Last Filed: 11/04/19 09:59>
--- NOTE | 2019-11-03 21:48 | CON ---
Date of Consultation: 11/03/2019 Reason For Service: Right-sided pneumothorax. History Of Present Illness: This is the case of a 73-year-old patient, who comes to us complaining o f a coughing and chest pain, eventually seen in the ER. When they did a workup on him and did an x-r ay, found the patient to have a right chest pneumothorax. Surgical consult was obtained for immediat e chest tube placement. The patient has history of esophageal cancer, although he stated he does not remember any surgeries and I do not see any midline incision. He says he received radiation therapy and chemotherapy. Last chemotherapy was about a year ago and recently they removed the Port-A-Cath. He saw his oncologist about 2 weeks ago. Past Surgical History: As above. Also includes hypertension, COPD, and esophageal cancer. Past Surgical History: As above. Allergies: NONE. Medications: Include Breo, albuterol, Flomax, aspirin. Social History: He does not drink alcohol. He smokes about a pack a day. Once again, he was counse led about smoking cessation. Family History: Noncontributory. Review of Systems: Ten points otherwise unremarkable. Physical Examination: General: The patient is awake and alert. HEENT: Pupils are equal and reactive. Anicteric. Chest: Initially before the chest tube, diminished breath sounds on the right side, but after the ch est tube placed, he has bilateral breath sounds. Abdomen: Soft and depressible. No guarding or rebound. Extremities: Full range of motion. Rectal: Deferred. Genitalia: Deferred. Laboratory Data: Blood work shows WBC count of 9, hemoglobin of 14.3, INR of 1.02, chloride is 97. An x-ray shows a large sized pneumothorax. Assessment: A 73-year-old patient with a right-sided pneumothorax. We explained to him the need for emergent chest tube placement with benefits, alternatives, and risks including, but not limited to i nfection, bleeding, damage to adjacent structures, anesthesia complication, empyema, recurrence of th e pneumothorax, hemothorax, PA, and even . He also understands this may not relieve symptoms. He might need more than one surgical intervention. We advised him to have a consult with the pulmono logist and also a consult with his plastic surgeon to diminish the chance of recurrence. See procedu re note. After the chest tube was placed, we placed the patient a Pleur-Evac and we ordered a chest x-ray stat and also for the morning. ERMA/JOY Voice ID: [id number] Report ID: [id number]
--- NOTE | 2019-11-03 22:18 | OP ---
Date of Procedure: 11/03/2019 Surgeon: Paul Kennedy MD Preoperative Diagnoses: Right-sided pneumothorax, esophageal cancer. Postoperative Diagnoses: Right-sided pneumothorax, esophageal cancer. Procedure: Placement of chest tube in the right side. Anesthesia: Local and morphine. Indications: This is the case of a 73-year-old patient with spontaneous pneumothorax. The benefits, alternatives, and risks of chest tube placement were fully explained, which include, but not limited to infection, bleeding, damage to adjacent structures, anesthesia complication, pneumothorax, empyem a, hemothorax, NH, and even . He understands this may not relieve symptoms. He might need more than one surgical intervention. He understood and signed a consent. Description Of Procedure: Right chest was prepped and draped in a sterile fashion. A time-out was tabatha rodriguez. The area was marked. At that moment, I proceeded to prep the area in usual sterile fashion. Local anesthesia was applied and then we proceeded to make an incision and placed the chest tube ove r the right fifth intercostal space. This was done by making an incision directly and then after jeana t, go between the ribs, just above the ribs, put my finger into make sure there are no adhesions in t he area. Then, a chest tube was placed, then secured in place with nonabsorbable sutures. Excellent flow pneumothorax was heard. The patient has also some clear pleural effusion coming from that area . Connected to Pleur-evac. At the end of the case, there is good tidaling of the chest tube with no air leak. The patient connected to jeana t and x-ray was ordered stat. ERMA/JOY Voice ID: [id number] Report ID: [id number]
[2019-11-03] MEDS: TAMSULOSIN 0.4 MG SR CAP PO SCH (22:37)
[2019-11-03] MEDS ORDERED: TAMSULOSIN 0.4 MG SR CAP ONE (22:44)
[2019-11-03] MEDS ORDERED: lisinopriL 10 MG TAB ONE (22:44)
[2019-11-03] MEDS: HYDROCODONE/APAP 7.5/325 MG TAB PO PRN (23:17)
[2019-11-03] MEDS ORDERED: HYDROCODONE/APAP 7.5/325 MG TAB ONE (23:26)
[2019-11-03] MEDS ORDERED: DULERA 100/5 (MOMETASONE/FORMOTEROL) INHALER IH ONE (23:39)
[2019-11-03] MEDS: DULERA 100/5 (MOMETASONE/FORMOTEROL) INHALER IH SCH (23:50)
[2019-11-04 00:19] LABS: Urine Appearance CLEAR; Urine Bilirubin NEGATIVE (NEG); Urine Blood NEGATIVE (NEG); Urine Color YELLOW; Urine Glucose NEGATIVE (NEG); Urine Protein NEGATIVE (NEG); Urine Specific Gravity 1.015 (1.005-1.030); Urine Urobilinogen 0.2 mg/dL (0.2-1.0); Urine pH 7.5 (5.0-7.0)
[2019-11-04 00:27] LABS: Urine Microscopic Reflex NO UMIC
[2019-11-04] MEDS: MORPHINE 2 MG/ML SYR IV PRN (00:35)
[2019-11-04] MEDS ORDERED: MORPHINE 2 MG/ML SYR ONE (00:45)
[2019-11-04] MEDS ORDERED: NA CHLORIDE 0.9% 500 ML IV ONE ×2 (01:01→06:16)
[2019-11-04] MEDS ORDERED: NA CHLORIDE 0.9% 500 ML ONE ×2 (01:31→06:33)
[2019-11-04 05:14] LABS: Absolute Lymphocytes (CBC) 0.6 K/uL (0.7-4.9); Basophils % 0.3 % (0-1.3); Hematocrit 42.1 % (39.6-49.0); Lymphocytes % 4.8 % (15.3-44.8); MPV 7.2 fL (7.6-11.3); RBC Red Blood Cell Count 4.33 M/uL (4.33-5.43)
[2019-11-04] MEDS: TRAMADOL HCL 50 MG TAB PO PRN ×2 (05:30→15:37)
[2019-11-04] MEDS ORDERED: TRAMADOL HCL 50 MG TAB ONE ×2 (05:41→15:44)
[2019-11-04 05:45] LABS: Magnesium 2.2 mg/dL (1.8-2.4)
[2019-11-04 05:58] LABS: Thyroid Stimulating Hormone 68.3 uIU/mL (0.360-3.740)
[2019-11-04] MEDS ORDERED: NA CHLORIDE 0.9% 1,000 ML ONE ×3 (06:32→20:55)
[2019-11-04] MEDS ORDERED: NA CHLORIDE 0.9% 1,000 ML IV SCH (07:00)
[2019-11-04 07:06] LABS: Blood Morphology Comment NOT SEEN (NOT SEEN); Platelet Estimate ADEQ
--- NOTE | 2019-11-04 08:24 | RAD REPORT ---
[facility] 6[facility]23 am CLINICAL HISTORY: Pneumothorax COMPARISON: November 02 FINDINGS: Right chest tube remains in place without visualization of pneumothorax. No significant change the AP alveolar opacities within the to lower right lung. Mild chronic anterior social opacities within the lungs.
[2019-11-04] MEDS ORDERED: ENOXAPARIN 40 MG/0.4 ML SQ ONE (09:45)
[2019-11-04] MEDS ORDERED: FOLIC ACID 1 MG TABLET ONE (09:45)
[2019-11-04] MEDS ORDERED: NICOTINE 21 MG/PAT TD ONE (09:45)
--- NOTE | 2019-11-04 09:51 | RAD REPORT ---
EXAM DESCRIPTION: RAD - Chest Single View - 11/03/2019 9:25 pm CLINICAL HISTORY: The patient is 73 years old and is Male; sob TECHNIQUE: Frontal view of the chest. COMPARISON: Chest radiograph performed the same day at 1645 hours FINDINGS: LUNGS: Asymmetric patchy opacity specifically within the right lower lobe is present. Th e lungs are hyperinflated. Subtle opacity within the right upper lobe is also noted. PLEURAL SPACE: No definite pneumothorax is noted. HEART: Unremarkable. No cardiomegaly. MEDIASTINUM: Unremarkable. BONES/JOINTS: The bones and soft tissues are stable. Suggestion of several right-sided rib fract ures noted. TUBES, LINES AND DEVICES: Right chest tube is unchanged in position. IMPRESSION: 1. Persistent patchy opacity within the right lower lobe with interval development of opacity within the right upper lobe. Findings have slightly progressed since prior exam. 2. Right-sided chest tube in place. No definite pneumothorax noted. Electronically signed by: Lise Meek MD 11/03/2019 9:49 PM CDT Due to temporary technical issues with the PACS/Fluency reporting system, reports are being signed by the in house radiologist without review as a courtesy to ensure prompt reporting. The interpreting r adiologist is fully responsible for the content of the report.
--- NOTE | 2019-11-04 09:58 | P.PN ---
Subjective Date of Service: 11/04/19 Primary Care Provider: Dr. Sevilla Chief Complaint: Shortness of breath Subjective: Improving, Other (Patient had episode of low blood pressure. This may be related to morphine that was given.) Physical Examination - Vital Signs Temperature: 97.8 F Blood Pressure: 97/61 Pulse: 57 Respirations: 16 Pulse Ox (%): 98 - Physical Exam General: Alert, Cooperative HEENT: Atraumatic Neck: Supple Respiratory: Clear to auscultation bilaterally, Other (Chest tube in place) Cardiovascular: Normal pulses, Regular rate/rhythm Gastrointestinal: No tenderness, No masses, No rebound, No guarding Neurological: Normal speech, Normal strength at 5/5 x4 extr, Normal tone, Normal affect - Studies Laboratory Data (last 24 hrs) 11/03/19 15:15: PT 12.0, INR 1.02 11/03/19 15:15: WBC 9.0, Hgb 14.3, Hct 41.4, Plt Count 246 11/03/19 15:15: Sodium 136, Potassium 4.0, BUN 11, Creatinine 0.89, Glucose 107 H, Magnesium 1.9, Total Bilirubin 0.3, AST 17, ALT 16, Alkaline Phosphatase 67 Medications List Reviewed: Yes Assessment & Plan Discharge Plan: Home Plan to discharge in: 48 Hours Physician Review Additional Text: Impression: Dyspnea secondary to large right pneumothorax status post emergent chest tube placement Hypotension likely related to morphine COPD History of mesothelioma History of esophageal cancer stage IV status post chemo-radiation Hypertension uncontrolled Hypothyroidism BPH Tobacco abuse Plan: Dyspnea secondary to large right pneumothorax status post emergent chest tube placement: Continue to monitor chest tube. Morphine discontinued due to low blood pressure. Will also hold hypertensive medication. Continue with surgery recommendation. Pulmonology consulted to further address chest tube. Patient on COPD medication. Will continue monitor closely. Wean off oxygen. Anticipa te improvement over the next 3-5 days. Hypotension likely related to morphine: Morphine has been discontinued. Also hypertensive medications discontinued. COPD: Will provide medication for COPD. Maintain oxygen above 93%. Pulmonology consulted. History of mesothelioma: Pulmonary consulted. History of esophageal cancer stage IV status post chemo-radiation: Patient reports this has been treated. He sees oncology as an outpatient. Hypertension uncontrolled: Will discontinue hypertensive medication at this time. Monitor closely. Consider medication if elevated.. BPH: Continue Flomax Hypothyroidism: This is new. Will start medication. Tobacco abuse: Cessation addressed. Will provide nicotine patch. Patient plans to quit. Time Spent Managing Pts Care (In Minutes): 55
[2019-11-04] MEDS: NA CHLORIDE 0.9% 1,000 ML IV SCH ×2 (09:59→17:47)
[2019-11-04] MEDS: ENOXAPARIN 40 MG/0.4 ML SQ SCH (09:59)
[2019-11-04] MEDS: FOLIC ACID 1 MG TABLET PO SCH (10:00)
[2019-11-04] MEDS: DULERA 100/5 (MOMETASONE/FORMOTEROL) INHALER IH SCH (10:00)
[2019-11-04] MEDS: NICOTINE 21 MG/PAT TD SCH (10:00)
[2019-11-04] MEDS: LEVOTHYROXINE SOD 0.05 MG TABLET PO SCH (11:28)
--- NOTE | 2019-11-04 11:38 | P.CNS ---
Date of Consult: 11/04/19 Primary Care Provider: Dr. Sevilla Chief Complaint: Pneumothorax History of Present Illness: Patient is 73 years of age with a history of esophageal cancer he was treated with chemo and radiation admitted with sudden onset of chest pain shortness of breath and was found to have a pneumothorax approximately 40% involving his right lung chest tube was then inserted he feels fine now developed some hypotension is a reaction to pain medications history of COPD uses Breo still continues to smoke up states that he drinks alcohol in moderation. Patient feels fine there is no air leak as probably induced by a fall Allergies morphine Adverse Reaction (Verified 11/04/19 06:18) hypotension Home Medications: Aspirin [Adult Aspirin Regimen] 81 mg PO DAILY 05/25/18 Fluticasone/Vilanterol [Breo Ellipta 100-25 Mcg INH] 2 puff IH DAILY PRN 05/25/18 Nitroglycerin 0.4 mg SL PRN PRN 05/25/18 Tamsulosin [Flomax*] 0.4 mg PO DAILY 05/25/18 Albuterol Neb [Proventil 0.083% Neb Soln] 2.5 mg IH PRN PRN 11/04/19 Furosemide [Lasix] 20 mg PO DAILY PRN 11/04/19 Trazodone HCl 100 mg PO BEDTIME 11/04/19 - Past Medical/Surgical History Diabetic: No -: Hypertension -: BPH -: Esophageal stage IV cancer status post chemo/radiation -: Mesothelioma -: Coronary artery disease -: Tobacco abuse Psychosocial/ Personal History: - Social History Smoking Status: Current every day smoker Alcohol use: Yes CD- Drugs: No Caffeine use: Yes Place of Residence: Home Review of Systems 10-point ROS is otherwise unremarkable General: Weakness Respiratory: Shortness of Breath Cardiovascular: Chest Pain Physical Examination Temp Pulse Resp BP Pulse Ox 97.8 F 57 16 97/61 98 11/04/19 09:58 11/04/19 09:58 11/04/19 09:58 11/04/19 09:58 11/04/19 09:58 General: Alert, Oriented x3 Respiratory: Expiratory wheezes Cardiovascular: No edema, Normal S1 S2 Gastrointestinal: Normal bowel sounds, Soft and benign Laboratory Data (last 24 hrs) 11/03/19 15:15: PT 12.0, INR 1.02 11/03/19 15:15: WBC 9.0, Hgb 14.3, Hct 41.4, Plt Count 246 11/03/19 15:15: Sodium 136, Potassium 4.0, BUN 11, Creatinine 0.89, Glucose 107 H, Magnesium 1.9, Total Bilirubin 0.3, AST 17, ALT 16, Alkaline Phosphatase 67 - Problems (1) Pneumothorax Current Visit: Yes Status: Acute Plan: Patient is 73 years of age apparently he fell developed a pneumothorax on the right side patient has no air leak chest is fully expanded I suggest Dc the chest tube suction wait another 24 hr is lung continues to remain expanded there is no evidence for pneumothorax consider removal of also ordered a CT scan of the chest to look for any bolus lung disease still continues to smoke drinks alcohol in moderation patient has a history of COPD of added bronchodilators Qualifiers: Pneumothorax type: traumatic (2) Hypothyroid Current Visit: Yes Status: Acute Plan: Patient is severely hypothyroid agree with the Synthroid Qualifiers: Hypothyroidism type: unspecified Qualified Code(s): E03.9 - Hypothyroidism, unspecified
--- NOTE | 2019-11-04 12:36 | RAD REPORT ---
EXAM DESCRIPTION: CT - Thorax Wo Con - 11/04/2019 12:20 pm CLINICAL HISTORY: Chest pain/pneumothorax COMPARISON: November 04, 2019 TECHNIQUE: Computed axial tomography of the chest was obtained. Contrast was not requested. All CT scans are performed using dose optimization technique as appropriate and may include automated exposure control or mA/KV adjustment according to patient size. FINDINGS: The evaluation of mediastinum, chucho and vessels is limited secondary to lack of IV contras t administration. A right chest tube has its tip in the upper medial hemithorax. Paraseptal and centrilobular emphysema is present. The largest lobe lies within the right upper hemit horax measuring 4.4 centimeters. No pneumothorax. Subcutaneous emphysema right lateral chest Moderate right lung alveolar opacities. No mediastinal or hilar lymphadenopathy is seen. Small pericardial effusion. Coronary arterial calcif ications Small pleural effusions. Wall of the mid and distal esophagus is thickened IMPRESSION: Right chest tube without pneumothorax Moderate right alveolar opacities may represent pneumonia or pulmonary edema Wall of the mid and distal esophagus is thickened which could indicate neoplasm, inflammation or post treatment change
[2019-11-04] MEDS: HYDROCODONE/APAP 7.5/325 MG TAB PO PRN ×2 (12:51→20:08)
[2019-11-04] MEDS ORDERED: HYDROCODONE/APAP 7.5/325 MG TAB ONE ×2 (13:02→20:19)
--- NOTE | 2019-11-04 13:16 | PN ---
Date of Progress Note: 11/04/2019 Diagnosis: Spontaneous pneumothorax. Subjective: The patient is doing better. No shortness of breath. No fever. Objective: Chest: Bilateral breath sounds. Chest tube functional with good tiling. No air leak. Abdomen: Soft and depressible. Imaging: Chest x-ray shows no pneumothorax. CAT scan shows no pneumothorax. Plan: Get the chest tube off suction and repeat x-ray tomorrow morning. Incentive spirometry. HM/MODL Voice ID: [id number] Report ID: [id number]
[2019-11-04] MEDS: IPRATROPIUM BROM 0.5MG/2.5ML NEB SCH ×2 (15:06→20:00)
[2019-11-04] MEDS ORDERED: IPRATROPIUM BROM 0.5MG/2.5ML ONE ×2 (15:11→19:50)
[2019-11-04] MEDS ORDERED: PNEUMOCOCCAL VACCINE 0.5 ML IMVAC ONE (16:00)
[2019-11-04] MEDS ORDERED: ARFORMOTEROL TARTRATE 15 MCG/2 ML VIAL.NEB ONE (19:59)
[2019-11-04] MEDS: ARFORMOTEROL TARTRATE 15 MCG/2 ML VIAL.NEB NEB SCH (20:00)
[2019-11-04] MEDS: TAMSULOSIN 0.4 MG SR CAP PO SCH (20:08)
[2019-11-04] MEDS ORDERED: TAMSULOSIN 0.4 MG SR CAP ONE (20:19)
[2019-11-05] MEDS ORDERED: HYDROCODONE/APAP 7.5/325 MG TAB ONE ×2 (01:18→20:44)
[2019-11-05] MEDS: IPRATROPIUM BROM 0.5MG/2.5ML NEB SCH ×4 (01:20→19:40)
[2019-11-05] MEDS ORDERED: IPRATROPIUM BROM 0.5MG/2.5ML ONE ×4 (01:26→19:41)
[2019-11-05] MEDS: HYDROCODONE/APAP 7.5/325 MG TAB PO PRN (01:53)
[2019-11-05] MEDS: NA CHLORIDE 0.9% 1,000 ML IV SCH ×3 (04:25→22:20)
[2019-11-05 05:25] LABS: Absolute Lymphocytes (CBC) 0.6 K/uL (0.7-4.9); Basophils % 0.7 % (0-1.3); Lymphocytes % 6.3 % (15.3-44.8); MPV 7.1 fL (7.6-11.3); RBC Red Blood Cell Count 4.18 M/uL (4.33-5.43)
[2019-11-05] MEDS: LEVOTHYROXINE SOD 0.05 MG TABLET PO SCH (05:34)
[2019-11-05 05:46] LABS: BUN Blood Urea Nitrogen 10 mg/dL (7-18); Bicarbonate 28 mmol/L (21-32); Glucose Level 82 mg/dL (74-106); Magnesium 2.3 mg/dL (1.8-2.4); Potassium 4.2 mmol/L (3.5-5.1); Sodium Level 136 mmol/L (136-145)
[2019-11-05] MEDS: ARFORMOTEROL TARTRATE 15 MCG/2 ML VIAL.NEB NEB SCH (07:47)
[2019-11-05] MEDS: DULERA 100/5 (MOMETASONE/FORMOTEROL) INHALER IH SCH ×2 (09:00→20:09)
[2019-11-05] MEDS: NICOTINE 21 MG/PAT TD SCH (09:10)
[2019-11-05] MEDS: FOLIC ACID 1 MG TABLET PO SCH (09:10)
[2019-11-05] MEDS: ENOXAPARIN 40 MG/0.4 ML SQ SCH (09:11)
--- NOTE | 2019-11-05 09:11 | RAD REPORT ---
EXAM DESCRIPTION: RAD - Chest Single View - 11/05/2019 5:30 am CLINICAL HISTORY: right pneumothorax, s/p chest tube f/u COMPARISON: CT chest November 03, portable chest November 03 TECHNIQUE: AP portable chest image was obtained 11/05/2019 5:30 am . FINDINGS: Right-sided chest tube remains in place. Patchy interstitial and alveolar opacities of the lower right lung field have improved. No enlarging or persistent pneumothorax identified. No new lef t lung finding. Heart size is normal. Right hilar fullness remains. IMPRESSION: Right lung base opacification has mostly cleared from the November 03 imaging. Chest tube remains in place with no pneumothorax identifiable on portable imaging.
[2019-11-05] MEDS ORDERED: ENOXAPARIN 40 MG/0.4 ML SQ ONE (09:15)
[2019-11-05] MEDS ORDERED: NICOTINE 21 MG/PAT TD ONE (09:15)
[2019-11-05] MEDS ORDERED: FOLIC ACID 1 MG TABLET ONE (09:15)
[2019-11-05] MEDS: TRAMADOL HCL 50 MG TAB PO PRN (11:32)
[2019-11-05] MEDS ORDERED: TRAMADOL HCL 50 MG TAB ONE (11:43)
[2019-11-05] MEDS ORDERED: NA CHLORIDE 0.9% 1,000 ML ONE ×2 (13:43→22:30)
--- NOTE | 2019-11-05 15:16 | PN ---
Subjective: Status post spontaneous pneumothorax status post chest tube placement. The patient is d oing well. No complaint. No shortness of breath. Objective: Chest: Bilateral breath sounds. Chest tube is working and good. Minimal drainage, tili ng good. No air leak. Abdomen: Soft and depressible. X-ray shows no pneumothorax. Plan: Plan will be to remove the chest tube today, then chest x-ray in the morning again. The patie nt is fully explained. ERMA/JOY Voice ID: [id number] Report ID: [id number]
--- NOTE | 2019-11-05 15:16 | OP ---
Surgeon: Paul Kennedy MD Procedure: Removal of a chest tube under aseptic condition using a Vaseline gauze. Description Of Procedure: We proceeded then to prep the area in the usual sterile fashion. Removed the sutures holding to the chest tube. Put a Vaseline gauze over the area and then in a split of a s econd removed the chest tube when the patient is flat. The patient tolerated the procedure well. Th e dressings were secured with tape and a chest x-ray was ordered stat. The patient tolerated the pro cedure well. ERMA/JOY Voice ID: [id number] Report ID: [id number]
[2019-11-05] MEDS: ASPIRIN EC 81 MG TAB PO SCH (15:22)
--- NOTE | 2019-11-05 15:23 | P.PN ---
Subjective Date of Service: 11/05/19 Primary Care Provider: Dr. Sevilla Chief Complaint: Pneumothorax Subjective: Improving, Doing well Physical Examination - Vital Signs Temperature: 98.8 F Blood Pressure: 175/86 Pulse: 63 Respirations: 15 Pulse Ox (%): 95 - Physical Exam General: Alert, In no apparent distress, Oriented x3, Cooperative HEENT: Atraumatic Neck: Supple Respiratory: Clear to auscultation bilaterally, Normal air movement, Other (Chest tube in place) Cardiovascular: Normal pulses, Regular rate/rhythm Gastrointestinal: Normal bowel sounds, Soft and benign, Non-distended Neurological: Normal speech, Normal strength at 5/5 x4 extr, Normal tone, Normal affect - Studies Medications List Reviewed: Yes Assessment & Plan Discharge Plan: Home Plan to discharge in: 24 Hours Physician Review Additional Text: Impression: Dyspnea secondary to large right pneumothorax status post emergent chest tube placement Hypotension likely related to morphine COPD History of mesothelioma History of esophageal cancer stage IV status post chemo-radiation Hypertension uncontrolled Hypothyroidism BPH Tobacco abuse Carotid arterial disease Plan: Dyspnea secondary to large right pneumothorax status post emergent chest tube placement: Chest tube to be removed today by surgery. Morphine has been discontinued due to low blood pressure. Will discuss with pulmonology. Will recheck chest x-ray after chest tube removed and again tomorrow. Possible discharge as early as tomorrow. Blood pressure elevated. Patient and daughter report that he has been on blood pressure medication in the past. All medications have caused severe hypertension. He reports only medication aspirin has helped with control of blood pressure. Will restart aspirin. Will hold off on giving any type of blood pressure medication at this time. If significantly elevated will consider starting lisinopril at 2.5 mg. Patient also has a history of carotid arterial disease. Patient to see CV surgery soon. Will check carotid Doppler to further evaluate. Daughter also reports that the patient had been on thyroid medication. This was discontinued due to increasing edema in the past. Patient restarted on medication. This can be monitored closely and adjusted. Will continue to monitor closely. As mentioned above anticipate discharge tomorrow. I will turn the service over to the hospitalist team tomorrow. I will go over the plan of care with him. Hypotension likely related to morphine: Morphine has been discontinued. Also hypertensive medications discontinued secondary to above. COPD: Will provide medication for COPD. Maintain oxygen above 93%. Pulmonolo gy consulted. History of mesothelioma: Pulmonary consulted. History of esophageal cancer stage IV status post chemo-radiation: Patient reports this has been treated. He sees oncology as an outpatient. Daughter reports he is getting immunotherapy. Hypertension uncontrolled: Will discontinue hypertensive medication at this time due to risk of hypotension as recommended by patient and daughter. Will provide aspirin 81 mg daily. Will consider starting low-dose lisinopril 2.5 mg if blood pressure significantly elevated. Will check carotid Doppler due to carotid arterial disease. BPH: Continue Flomax Hypothyroidism: This is new. Will start medication. This will need to be monitored closely as daughter reports this had been discontinued due to increasing edema to the right side. Tobacco abuse: Cessation addressed. Will provide nicotine patch. Patient plans to quit. Carotid arterial disease: Will check carotid Doppler. Patient has seen CV surgery. He has been told that he may need surgery in the near future. Time Spent Managing Pts Care (In Minutes): 55
[2019-11-05] MEDS ORDERED: ASPIRIN EC 81 MG TAB PO ONE (15:33)
--- NOTE | 2019-11-05 15:36 | RAD REPORT ---
EXAM DESCRIPTION: RAD - Chest Single View - 11/05/2019 2:42 pm CLINICAL HISTORY: d/c chest tube/ f/u pneumothorax COMPARISON: Portable chest November 04 TECHNIQUE: AP portable chest image was obtained 11/05/2019 2:42 pm . FINDINGS: Chest tube has been removed. No pneumothorax is seen. [place] is difficult to evaluate for pn eumothorax given the known multiple cystic cavities in the apex. Hazy right base opacification is pro bably atelectasis. Heart and vasculature are normal. No enlarging or new pleural fluid collection. No acute bony abnormality seen. No acute aortic findings suspected. IMPRESSION: Chest tube has been removed. No pneumothorax seen. Right apex is difficult to assess for pneumothorax due to the number of air-filled cystic cavities in the right lung apex. Right base atelectasis.
[2019-11-05] MEDS ORDERED: lisinopriL 5 MG TAB ONE (17:47)
[2019-11-05] MEDS ORDERED: ALPRAZOLAM 0.25 MG TABLET PO PRN (18:14)
[2019-11-05] MEDS ORDERED: METHYLPREDNISOLONE 40 MG INJ ONE (18:37)
[2019-11-05] MEDS ORDERED: ALPRAZOLAM 0.25 MG TABLET ONE (18:39)
[2019-11-05] MEDS ORDERED: TAMSULOSIN 0.4 MG SR CAP ONE (19:05)
[2019-11-05] MEDS: TAMSULOSIN 0.4 MG SR CAP PO SCH (20:10)
--- NOTE | 2019-11-05 21:10 | RAD REPORT ---
EXAM DESCRIPTION: - CP - 11/05/2019 8:50 pm CLINICAL HISTORY: carotid artery disease COMPARISON: No comparisons TECHNIQUE: Real-time sonographic evaluation of bilateral carotid and vertebral systems was performed . [place]nair scale and Doppler interrogation were performed with waveform tracing bilaterally. FINDINGS: Normal high resistance waveforms are noted in both external carotid arteries. The common c arotid arteries and internal carotid arteries show normal low resistance waveforms. Prominent calcified and noncalcified plaquing changes are present. Moderately by right ICA peak systo lic velocity value seen. Significantly elevated left ICA velocity value noted. ICA/CCA ratios are abn ormal measuring 2.92 on the left and 1.27 on the right. Antegrade flow seen in both vertebral arteries. Velocity values and ratios were recorded and are retained in the patient's imaging records. IMPRESSION: Significant bilateral calcified plaquing changes are present left greater than right. Significant stenosis noted in the left with borderline 50% stenosis on the right.
[2019-11-05] MEDS: BENZONATATE 100 MG CAP PO PRN (22:23)
[2019-11-05] MEDS ORDERED: BENZONATATE 100 MG CAP PO ONE (22:29)
[2019-11-06] MEDS ORDERED: DIPHENHYDRAMINE 25 MG TAB/CAP PO ONE ×2 (00:01→09:10)
[2019-11-06] MEDS ORDERED: DIPHENHYDRAMINE 25 MG TAB/CAP ONE (00:23)
[2019-11-06 00:58] VITALS: O2SAT 98
[2019-11-06] MEDS ORDERED: IPRATROPIUM BROM 0.5MG/2.5ML ONE ×2 (01:39→07:56)
[2019-11-06] MEDS: IPRATROPIUM BROM 0.5MG/2.5ML NEB SCH ×2 (02:00→07:58)
[2019-11-06 04:22] VITALS: TEMP 98.2
[2019-11-06] MEDS: LEVOTHYROXINE SOD 0.05 MG TABLET PO SCH (05:00)
[2019-11-06 05:32] LABS: Absolute Lymphocytes (CBC) 0.7 K/uL (0.7-4.9); Basophils % 0.9 % (0-1.3); Hematocrit 42.2 % (39.6-49.0); Lymphocytes % 7.3 % (15.3-44.8); MPV 7.3 fL (7.6-11.3); RBC Red Blood Cell Count 4.31 M/uL (4.33-5.43)
[2019-11-06 05:37] LABS: BUN Blood Urea Nitrogen 9 mg/dL (7-18); Bicarbonate 26 mmol/L (21-32); Glucose Level 75 mg/dL (74-106); Magnesium 2.1 mg/dL (1.8-2.4); Potassium 3.9 mmol/L (3.5-5.1); Sodium Level 135 mmol/L (136-145)
[2019-11-06] MEDS: NICOTINE 21 MG/PAT TD SCH (07:57)
[2019-11-06] MEDS: ENOXAPARIN 40 MG/0.4 ML SQ SCH (07:57)
[2019-11-06] MEDS: DULERA 100/5 (MOMETASONE/FORMOTEROL) INHALER IH SCH (07:58)
[2019-11-06] MEDS: FOLIC ACID 1 MG TABLET PO SCH (07:58)
[2019-11-06] MEDS: ASPIRIN EC 81 MG TAB PO SCH (07:58)
[2019-11-06] MEDS ORDERED: BENZONATATE 100 MG CAP PO ONE ×2 (07:59→09:27)
[2019-11-06] MEDS ORDERED: NICOTINE 21 MG/PAT TD ONE (07:59)
[2019-11-06] MEDS ORDERED: POTASSIUM CL SA 10 MEQ TAB PO ONE ×2 (08:00)
[2019-11-06] MEDS ORDERED: ENOXAPARIN 40 MG/0.4 ML SQ ONE (08:00)
[2019-11-06] MEDS ORDERED: ASPIRIN EC 81 MG TAB PO ONE (08:00)
[2019-11-06] MEDS ORDERED: FOLIC ACID 1 MG TABLET ONE (08:00)
[2019-11-06] MEDS: NA CHLORIDE 0.9% 1,000 ML IV SCH (08:03)
[2019-11-06] MEDS ORDERED: NA CHLORIDE 0.9% 0 ML ONE (08:14)
--- NOTE | 2019-11-06 08:28 | P.PN ---
Subjective Date of Service: 11/06/19 Primary Care Provider: Dr. Sevilla Chief Complaint: Pneumothorax Subjective: Improving (Patient is doing well chest tube was removed so far there is no evidence a pneumothorax chest x-ray has been repeated he feels fine) Review of Systems Unremarkable Physical Examination - Vital Signs Temperature: 98.2 F Blood Pressure: 161/91 Pulse: 65 Respirations: 16 Pulse Ox (%): 97 - Physical Exam General: Alert, Oriented x3 Respiratory: Clear to auscultation bilaterally Cardiovascular: No edema, Regular rate/rhythm - Studies Medications List Reviewed: Yes Assessment & Plan - Problems (Diagnosis) (1) Pneumothorax Current Visit: Yes Status: Acute Plan: Patient is doing much better plan for discharge today if a repeat chest x-ray does not show any evidence of pneumothorax he can go home with Quentin from the hospital follow-up with me in 2 weeks Qualifiers: Pneumothorax type: traumatic (2) Hypothyroid Current Visit: Yes Status: Acute Plan: Patient is on Synthroid Qualifiers: Hypothyroidism type: unspecified Qualified Code(s): E03.9 - Hypothyroidism, unspecified Physician Review Additional Text: Impression: Dyspnea secondary to large right pneumothorax status post emergent chest tube placement Hypotension likely related to morphine COPD History of mesothelioma History of esophageal cancer stage IV status post chemo-radiation Hypertension uncontrolled Hypothyroidism BPH Tobacco abuse Carotid arterial disease Plan: Dyspnea secondary to large right pneumothorax status post emergent chest tube pl acement: Chest tube to be removed today by surgery. Morphine has been discontinued due to low blood pressure. Will discuss with pulmonology. Will recheck chest x-ray after chest tube removed and again tomorrow. Possible discharge as early as tomorrow. Blood pressure elevated. Patient and daughter report that he has been on blood pressure medication in the past. All medications have caused severe hypertension. He reports only medication aspirin has helped with control of blood pressure. Will restart aspirin. Will hold off on giving any type of blood pressure medication at this time. If significantly elevated will consider starting lisinopril at 2.5 mg. Patient also has a history of carotid arterial disease. Patient to see CV surgery soon. Will check carotid Doppler to further evaluate. Daughter also reports that the patient had been on thyroid medication. This was discontinued due to increasing edema in the past. Patient restarted on medication. This can be monitored closely and adjusted. Will continue to monitor closely. As mentioned above anticipate discharge tomorrow. I will turn the service over to the hospitalist team tomorrow. I will go over the plan of care with him. Hypotension likely related to morphine: Morphine has been discontinued. Also hypertensive medications discontinued secondary to above. COPD: Will provide medication for COPD. Maintain oxygen above 93%. Pulmonology consulted. History of mesothelioma: Pulmonary consulted. History of esophageal cancer stage IV status post chemo-radiation: Patient reports this has been treated. He sees oncology as an outpatient. Daughter reports he is getting immunotherapy. Hypertension uncontrolled: Will discontinue hypertensive medication at this time due to risk of hypotension as recommended by patient and daughter. Will provide aspirin 81 mg daily. Will consider starting low-dose lisinopril 2.5 mg if blood pressure significantly elevated. Will check carotid Doppler due to carotid arterial disease. BPH: Continue Flomax Hypothyroidism: This is new. Will start medication. This will need to be monitored closely as daughter reports this had been discontinued due to increasing edema to the right side. Tobacco abuse: Cessation addressed. Will provide nicotine patch. Patient plans to quit. Carotid arterial disease: Will check carotid Doppler. Patient has seen CV surgery. He has been told that he may need surgery in the near future.
[2019-11-06] MEDS: BENZONATATE 100 MG CAP PO PRN (09:16)
--- NOTE | 2019-11-06 09:37 | P.DS ---
Discharge Date: 11/06/19 Primary Care Provider: Dr. Sevilla Disposition: ROUTINE DISCHARGE Discharge Condition: GOOD Reason for Admission: Pneumothorax Consultations: PULMONARY SURGERY Vital Signs/Physical Exam: Temp Pulse Resp BP Pulse Ox 98.2 F 65 16 161/91 H 97 11/06/19 08:27 11/06/19 08:27 11/06/19 08:27 11/06/19 08:27 11/06/19 08:27 General: Alert, In no apparent distress, Oriented x3 Laboratory Data at Discharge: WBC 9.4 K/uL (4.3-10.9) 11/06/19 05:01 Hgb 14.1 g/dL (13.6-17.9) 11/06/19 05:01 Hct 42.2 % (39.6-49.0) 11/06/19 05:01 Plt Count 247 K/uL (152-406) 11/06/19 05:01 PT 12.0 SECONDS (9.5-12.5) 11/03/19 15:15 INR 1.02 11/03/19 15:15 Sodium 135 mmol/L (136-145) L 11/06/19 05:01 Potassium 3.9 mmol/L (3.5-5.1) 11/06/19 05:01 BUN 9 mg/dL (7-18) 11/06/19 05:01 Creatinine 0.81 mg/dL (0.55-1.3) 11/06/19 05:01 Glucose 75 mg/dL (74-106) 11/06/19 05:01 Magnesium 2.1 mg/dL (1.8-2.4) 11/06/19 05:01 Total Bilirubin 0.3 mg/dL (0.2-1.0) 11/03/19 15:15 AST 17 U/L (15-37) 11/03/19 15:15 ALT 16 U/L (12-78) 11/03/19 15:15 Alkaline Phosphatase 67 U/L (45-117) 11/03/19 15:15 Troponin I < 0.02 ng/mL (0.0-0.045) 11/05/19 02:20 Triglycerides 94 mg/dL (<150) 11/04/19 04:50 Cholesterol 156 mg/dL (<200) 09/19/20 04:50 HDL Cholesterol 54 mg/dL (40-60) 11/04/19 04:50 Cholesterol/HDL Ratio 2.89 11/04/19 04:50 Home Medications: Aspirin [Adult Aspirin Regimen] 81 mg PO DAILY 05/25/18 Fluticasone/Vilanterol [Breo Ellipta 100-25 Mcg INH] 2 puff IH DAILY PRN 05/25/18 Nitroglycerin 0.4 mg SL PRN PRN 05/25/18 Tamsulosin [Flomax*] 0.4 mg PO DAILY 05/25/18 Albuterol Neb [Proventil 0.083% Neb Soln] 2.5 mg IH PRN PRN 11/04/19 Furosemide [Lasix*] 20 mg PO DAILY PRN 11/04/19 Trazodone HCl 100 mg PO BEDTIME 11/04/19 Mometasone/Formoterol [Dulera 100 Mcg/5 Mcg Inhaler] 1 puff IH BID #1 inhaler 11/06/19 lisinopriL [Prinivil*] 2.5 mg PO DAILY #30 tab 11/06/19 New Medications: Mometasone/Formoterol [Dulera 100 Mcg/5 Mcg Inhaler] 1 puff IH BID #1 inhaler lisinopriL [Prinivil*] 2.5 mg PO DAILY #30 tab Patient Discharge Instructions: OK TO DC IV AND DC HOME. FOLLOW-UP WITH PRIMARY CARE PROVIDER IN 1-2 WEEKS. FOLLOW-UP WITH PULMONARY IN 1-2 WEEKS. RETURN TO THE ER IF SYMPTOMS WORSEN. CALL or TEXT DR. GONZALEZ AT [phone] IF ANY QUE STIONS REGARDING HOSPITAL STAY. PLEASE CALL THE FLOOR AT [phone] IF ANY MEDICATION OR NURSING QUESTIONS. Diet: AHA Activity: Fall precautions
[2019-11-06 10:38] VITALS: BP 160/81
[2019-11-06] MEDS ORDERED: lisinopriL 5 MG TAB PO SCH (21:00)
== END 2019-11-06 11:25 | disposition home or self-care (01) | DRG 201 ==
LOC: ER 14:25 → ERHOLD 17:18 → 2ND 19:33 → ERHOLD 22:29
PROVIDERS: ADMIT Family Medicine; ATTEND Hospitalist
PROC: 0W9930Z Drainage of Right Pleural Cavity with Drainage Device, Percutaneous Approach (ICD-10-PCS; principal; 2019-11-03)
PROC: 0WP930Z Removal of Drainage Device from Right Pleural Cavity, Percutaneous Approach (ICD-10-PCS; 2019-11-05)
DX: S27.0XXA Traumatic pneumothorax, initial encounter (principal); J44.9 Chronic obstructive pulmonary disease, unspecified; I25.10 Atherosclerotic heart disease of native coronary artery without angina pectoris; I10 Essential (primary) hypertension; N40.0 Benign prostatic hyperplasia without lower urinary tract symptoms; E03.9 Hypothyroidism, unspecified; F17.210 Nicotine dependence, cigarettes, uncomplicated; I95.2 Hypotension due to drugs; T40.2X5A Adverse effect of other opioids, initial encounter; Z92.21 Personal history of antineoplastic chemotherapy; Z92.3 Personal history of irradiation; Z85.01 Personal history of malignant neoplasm of esophagus; Z79.82 Long term (current) use of aspirin; Z79.899 Other long term (current) drug therapy; Z20.828 Contact with and (suspected) exposure to other viral communicable diseases
CPT/HCPCS: 36415; 71045; 71250; 80048; 80061; 80076; 81003; 83605; 83735; 83880; 84145; 84439; 84443; 84484; 85025; 85610; 87040; 93005; 93880; 94010; 94640; 96374; 96375; 99285; J0360; J1650; J2270; J2920; J7030; J7040; J7605; J7606; U0002

== ENCOUNTER 2019-12-29 13:17 | Emergency (ER) | payer OTHER ==
--- OUTSIDE RECORDS SUMMARY | 2019-12-29 13:19 | XMS REPORT | Continuity of Care Document ---
:1945 Author Organization [facility] t Address [address] [place] [address] Care Team Providers Name Role Phone RYANN Attending Clinician Unavailable APOLINAR Attending Clinician Unavailable CELINA Attending Clinician Unavailable RADIOLOGY Attending Clinician Unavailable AMIE Attending Clinician Unavailable Problems Condition Condition Condition [...] [facility] [place] [facility] CAD CAD Problem Active Univers (coronary (coronary ity of artery artery [place] disease) disease) Physic i ans Dyspnea Dyspnea Problem Active [facility] [place] [facility] Allergies, Adverse Reactions, Alerts This patient has no known allergies or adverse reactions. Family History Family Member Diagnosis Comments Start Date Stop Date Source Unknown Family Family history of Family History University of Member ischemic heart [place] Phys icians disease Social History Smoking Status Start Date Stop Date Source Smoker (finding) [facility] ex Physicians Medications Ordered Filled Start Stop [...] vers HCl CAPS HCl CAPS [facility] [place] [facility] Aspirin 81 Aspirin 81 Yes Uni vers MG TABS MG TABS [facility] [place] [facility] Albuterol Albuterol Yes Unive rs AERS AERS [facility] [place] [facility] Vital Signs Vital Name Observation Time Observation Value Comments Source Systolic blood 2019-05-04 167 mm[Hg] Location: [facility] 10:37:00 Position: [place] Physician s Sitting Diastolic blood 2019-05-04 76 mm[Hg] Location: [facility] 10:37:00 Position: [place] Physician s Sitting Body height 2019-05-04 71 [in_us] [facility] 10:37:00 [place] [facility] s Weight 2019-05-04 150.125 [lb_av] University o f 10:37:00 [place] [facility] s Body mass index 2019-05-04 20.94 kg/m2 University o f (BMI) [Ratio] 10:37:00 [facility] ns Body temperature 2019-05-04 96.2 [degF] Method: [facility] 10:37:00 Tympanic [place] [facility] s Heart Rate 2019-05-04 59 /min Quality: Normal University o f 10:37:00 [place] [facility] s Respiratory rate 2019-05-04 18 /min Quality: Normal [facility] 10:37:00 [place] Phys[facility] s O2 SAT 2019-05-04 96 % Source: [facility] 10:37:00 [place] [facility] s Systolic blood 2019-05-01 162 mm[Hg] Location: [facility] 10:04:00 Position: [place] Physician s Sitting Diastolic blood 2019-05-01 63 mm[Hg] Location: [facility] 10:04:00 Position: [place] Physician s Sitting Body height 2019-05-01 71 [in_us] [facility] 10:04:00 [place] [facility] s Weight 2019-05-01 156.125 [lb_av] University o f 10:04:00 [place] [facility] s Body mass index 2019-05-01 21.78 kg/m2 University o f (BMI) [Ratio] 10:04:00 [place] [facility] ns Body temperature 2019-05-01 96.6 [degF] Method: [facility] 10:04:00 Tympanic [place] [facility] s Heart Rate 2019-05-01 69 /min Quality: Normal University o f 10:04:00 [place] [facility] s Respiratory rate 2019-05-01 16 /min Quality: [facility] 10:04[facility] [place] [facility] O2 SAT 2019-05-01 98 % Source: [facility] 10:04:00 [place] [facility] s Systolic blood 2019-04-28 144 mm[Hg] Location: [facility] pressure 10:05:00 Position: [place] Physician s Sitting Diastolic blood 2019-04-28 69 mm[Hg] [facility] 10:05:00 Position: [place] Physician s Sitting Body height 2019-04-28 72 [in_us] University 10:05:00 [place] [facility] Weight 2019-04-28 151.25 [lb_av] University 10:05:00 [place] [facility] Body mass index 2019-04-28 20.51 kg/m2 University o f (BMI) [Ratio] 10:05:00 [place] [facility] Heart Rate 2019-04-28 64 /min [facility] 10:05:00 [place] [facility] O2 SAT 2019-04-28 96 % [facility] 10:05:00 [place] [facility] BP Systolic 2019-01-30 130 mm[Hg] Location: [facility] 10:46:00 Position: [place] Physician s Sitting BP Diastolic 2019-01-30 84 mm[Hg] Location: [facility] 10:46:00 Position: [place] Physician s Sitting Height 2019-01-30 72 [in_us] University 10:46:00 [place] [facility] s Weight 2019-01-30 141.8 [lb_av] University 10:46:00 [place] [facility] Body Mass Index 2019-01-30 19.23 kg/m2 University o f Calculated 10:46:00 [place] [facility] s Temperature 2019-01-30 98.6 [degF] Method: Oral University 10:46:00 [place] [facility] Heart Rate 2019-01-30 70 /min University 10:46:00 [place] [facility] Procedures Procedure Date / Time Performed Performing Clinician Kat e CVRAD - Bilateral 2019-11-23 00:00:00 [facility] Carotid Duplex - Physicians 13165 [N] 2D Echo complete, 2019-11-07 00:00:00 [facility] with Doppler 15853 Physicians History of Aortic [facility] aneurysm repair Physicians Plan of Care Planned Activity Planned Date Details Comments Source Future Scheduled 2019-12-04 [N] 2D Echo [facility] Test 00:00:00 complete, with Physicians Doppler 01700 [code = [N] 2D Echo complete, with Doppler 33757] Encounters Start End Encounter Admission Attending Care Care Encounter Source Date/Time Date/Time Type Type Clinicians Facility Department ID 2019-04-24 Outpatient [facility] [id number] [facility] 14:10:19 2019-11-23 2019-11-23 Appointmen MUSA GARZON Cardi[facility]ora [id number] Univers 08:45:00 08:45:00 t; ANIL, monae & ity of Cait GARZON Vascular Carri MA, Surgery - Physic gabriele Chavira [facility] 2019-10-19 2019-10-19 Appointmen RUBÉN JIANG UTP UTP [id number] [facility] 10:00:00 10:00:00 t; [facility] 2019-10-19 2019-10-19 Outpatient [facility] [id number] [facility] 09:41:00 09:41:00 2019-09-07 2019-09-07 Appointmen RUBÉN JIANG UTP UTP [id number] Univers 14:10:00 14:10:00 t; Cait JIANG of [place] M.D. [facility] ans 2019-08-21 2019-08-21 Appointmen GALLO PATRICK, MUSA UTP [id number] Univers 09:15:00 09:15:00 t; Cait PATRICK M.D. [facility] 2019-08-14 2019-08-14 Appointmen GALLO PATRICK, MUSA UTP [id number] Univers 09:30:00 09:30:00 t; Cait PATRICK M.D. [facility] ans 2019-08-10 2019-08-10 Outpatient [facility] [id number] [facility] 13:06:00 13:06:00 2019-08-10 2019-08-10 Appointmen RUBÉN JIANG UTP UTP [id number] Univers 12:45:00 12:45:00 t; Cait JIANG [facility] Physici ans 2019-07-20 2019-07-20 Appointmen GALLO PATRICK UTP Otorhinolar [id number] Univers 09:30:00 09:30:00 t; Cait PATRICK yngology - i ty of Cait HOLDER [facility] ans 2019-07-13 2019-07-13 Appointmen RUBÉN JIANG, RUST UTP [id number] Univers 15:00:00 15:00:00 t; Cait JIANG itcleopatra [facility] Physici ans 2019-07-06 2019-07-06 Appointmen RUBÉN JIANG, RUST UTP [id number] Univers 14:00:00 14:00:00 t; Cait JIANG [facility] Physici ans 2019-07-06 2019-07-06 Outpatient [facility] [id number] [facility] 13:37:00 13:37:00 2019-06-08 2019-06-08 Appointmen RUBÉN JIANG, RUST UTP [id number] Univers 10:35:00 10:35:00 t; Cait JIANG of [facility] Physici ans 2019-05-17 2019-05-17 Appointmen RADIOLOGY, UMSA UTP [id number] Univers 10:30:00 10:30:00 t; MD OJEDA it y of RADIOLOGY, [place] [facility] PROVIDER [facility] 2019-05-11 2019-05-11 Appointmen RUBÉN JIANG, RUST UTP [id number] Univers 12:00:00 12:00:00 t; Cait JIANG [facility] Physici ans 2019-05-11 2019-05-11 Outpatient [facility] [id number] [facility] 11:50:00 11:50:00 2019-05-04 2019-05-04 Appointmen RADIOLOGYMUSA Interventio [id number] Univers 10:00:00 10:00:00 t; MD LYNETTE ulloa it y of RADIOLOGY, Radiology - T linsey QUESADA [place] [facility] PROVIDER [facility] 2019-05-01 2019-05-01 Appointmen RADIOLOGY, MUSA Interventio [id number] Univers 09:30:00 09:30:00 t; PROVIDER laila it y of RADIOLOGY, Radiology - T linsey QUESADA [place] Physici [facility] 2019-04-28 2019-04-28 Appointmen RADIOLOGY, RUST Interventio [id number] Univers 09:30:00 09:30:00 t; PROVIDER laila it y of RADIOLOGY, Radiology - T linsey QUESADA [facility] 2019-04-20 2019-04-20 Appointmen RUBÉN JIANG, RUST UTP [id number] Univers 14:20:00 14:20:00 t; Cait JIANG of [facility] [place] Cait [facility] 2019-03-30 2019-03-30 Outpatient [facility] [id number] [facility] 12:12:00 12:12:00 2019-02-27 2019-02-27 Appointmen GALLO PATRICK, RUST UTP [id number] Univers 09:30:00 09:30:00 t; Cait PATRICK M.D. [facility] 2019-02-21 2019-02-21 Outpatient [facility] [id number] [facility] 07:20:00 07:20:00 2019-02-17 2019-02-17 Outpatient [facility] [id number] [facility] 08:56:00 08:56:00 2019-02-01 2019-02-01 Appointmen RUBÉN JIANG, RUST UTP [id number] Univers 10:30:00 10:30:00 t; [facility] 2019-01-30 2019-01-30 Appointmen GALLO PATRICK, RUST Otorhinolar [id number] Univers 10:15:00 10:15:00 t; Cait PATRICK yngology - i ty of Cait HOLDER [facility] 2019-01-20 2019-01-20 Outpatient [facility] [id number] [facility] 12:12:00 12:12:00 2019-01-05 2019-01-05 Appointmen RUBÉN JIANG RUST UTP [id number] Univers 14:30:00 14:30:00 t; [facility] 2018-12-21 2018-12-21 Appointmen APOLINARGIOVANACONNER, UTP UTP [id number] Univers 10:30:00 10:30:00 t; Cait JIANG [facility] Physici ans 2018-12-19 2018-12-19 Appointmen AMIE, MUSA UTP [id number] Univers 14:30:00 14:30:00 t; RENA HOLLOWAY, ity of Cait CHASE [facility] Physici ans 2018-12-07 2018-12-07 Outpatient [facility] [id number] [facility] 11:06:00 11:06:00 2018-12-07 2018-12-07 Appointmen APOLINAR GIOVANACONNER, UTP UTP [id number] Univers 10:30:00 10:30:00 t; Cait JIANG [facility] Physici ans 2018-11-23 2018-11-23 Appointmen APOLINAR GIOVANACONNER, MUSA UTP [id number] Univers 10:30:00 10:30:00 t; Cait JIAGN [facility] Physici ans 2018-11-07 2018-11-07 Appointmen APOLINAR GIOVANACONNER, UTP UTP [id number] Univers 12:00:00 12:00:00 t; Cait JIANG [facility] Physici ans 2018-10-24 2018-10-24 Appointmen APOLINAR GIOVANACONNER, MUSA UTP [id number] Univers 11:30:00 11:30:00 t; Cait JIANG [facility] Physici ans 2018-10-09 2018-10-09 Emergency E [facility] M[facility] [id number] [facility] 17:50:00 17:50:00 2018-10-05 2018-10-05 Appointmen RUBÉN JIANG, UTP UTP [id number] Univers 13:45:00 13:45:00 t; Cait JIANG [facility] Physici ans 2018-10-05 2018-10-05 Outpatient [facility] M[facility] [id number] M[facility] 09:29:00 09:29:00 2018-09-28 2018-09-28 Appointmen APOLINARRUBÉN, UTP UTP [id number] Univers 10:40:00 10:40:00 t; Cait JIANG of [facility] Physici ans 2018-09-26 2018-09-26 Outpatient MH MHHH [id number] M[facility] 15:22:00 15:22:00 2018-09-21 2018-09-21 Appointmen APOLINARRUBÉN, UTP UTP [id number] Univers 10:00:00 10:00:00 t; Cait JIANG of [facility] Physici ans 2018-09-14 2018-09-14 Appointmen APOLINARRUBÉN, UTP UTP [id number] Univers 09:30:00 09:30:00 t; Cait JIANG [facility] Physici ans 2018-09-07 2018-09-07 Appointmen APOLINARRUBÉN, UTP UTP [id number] Univers 14:00:00 14:00:00 t; Cait JIANG of [facility] Physici ans 2018-08-31 2018-08-[address] [facility] MHH [id number] MHHH 13:14:00 13:14:00 2018-08-31 2018-08-31 Appointmen APOLINARRUBÉN, UTP UTP [id number] Univers 11:30:00 11:30:00 t; Cait JIANG of [facility] Physici ans 2018-08-25 2018-08-25 Outpatient [facility] [id number] M[facility] 11:08:00 11:08:00 2018-08-17 2018-08-17 Appointmen APOLINAR PUTAO, UTP UTP [id number] Univers 10:45:00 10:45:00 t; Cait JIANG of [facility] Physici ans 2018-08-04 2018-08-04 Appointmen APOLINAR PUTAO, UTP UTP [id number] Univers 09:45:00 09:45:00 t; Cait JIANG of [facility] Physici ans 2018-07-21 2018-07-21 Appointmen APOLINAR, PUTAO, UTP UTP [id number] Univers 10:30:00 10:30:00 t; [facility] 2018-07-21 2018-07-21 Outpatient [facility] M[facility] [id number] M[facility] 08:38:00 08:38:00 2018-07-07 2018-07-07 Appointmen APOLINARRUBÉN, RUST UTP [id number] Univers 16:00:00 16:00:00 t; Cait JIANG of [facility] ans 2018-07-07 2018-07-07 Appointmen GALLO PATRICK, RUST UTP [id number] Univers 09:30:00 09:30:00 t; Cait PATRICK of Cait HOLDER [place] Physici ans 2018-06-29 2018-06-29 Appointmen APOLINAR RUBÉN, RUST UTP [id number] Univers 13:30:00 13:30:00 t; [facility] 2018-06-29 2018-06-29 Outpatient [facility] M[facility] [id number] M[facility] 07:53:00 07:53:00 2018-06-23 2018-06-23 Outpatient [facility] M[facility]H [id number] M[facility] 10:47:00 10:47:00 2018-06-20 2018-06-20 Outpatient [facility] M[facility] [id number] M[facility] 12:49:00 12:49:00 2018-06-20 2018-06-20 Appointmen APOLINAR RUBÉN, RUST UTP [id number] Univers 12:00:00 12:00:00 t; Cait [facility]ANG [facility] ans 2018-06-16 2018-06-16 Appointmen GALLO PATRICK, RUST UTP [id number] Univers 10:15:00 10:15:00 t; Cait PATRICK M.D. [place] [facility] ans 2018-06-08 2018-06-08 Outpatient [facility] M[facility] [id number] M[facility] 10:37:00 10:37:00 2018-06-06 2018-06-06 Appointmen GALLO PATRICK, RUST UTP [id number] [facility] 14:15:00 14:15:00 t; Cait PATRICK M.D. [place] Aida monsalve 2018-05-31 2018-05-31 Outpatient MHSE MHSE [id number] MH 07:40:00 07:40:00 [facility] 2018-05-27 2018-05-27 Appointmen MUSA GARZON UTP [id number] [facility] 11:00:00 11:00:00 t; Delfino MA M.D. [place] Aida MA M.D. Results Test Test Test Results Result Source Description Time Comments Comments PET CT Tumor 2019-02 EXAM: NM PET CT Skull Base [facility] initial -15 to Mid ThighDATE: 03/01/2019 [place] skull-midthigh 09:43:0 at 10:47 AMINDICATION: Physicians [id number] 73-year-old male patient with past medical [...] known Warthin'stumor.--This report was dictated by a Duct Installer/Fellow/Physician Surgical Supplies Sterilizer. Ihave personallyreviewed the images as well as the interpretation and agree with the findings.Read by: Frederic No Resident/Fellow/PhysicianAss istant: Frederic Noictated Date/time: 03/01/19 12:47Electronically Signed by: Tiffanie Luke MD 03/01/2014:46FINAL REPORT
--- OUTSIDE RECORDS SUMMARY | 2019-12-29 13:21 | XMS REPORT | Summary of Care ---
:1945 Author Name Nnamdi Tarango Address Unavailable Unavailable , Care Team Providers Name Role Phone RYANN Chavira Unavailable Unavailable THANH QUESADA Unavailable Unavailable Archie QUESADA Unavailable Unavailable CELINA QUESADA Unavailable Unavailable ELIEL HARTLEY MD Unavailable Unavailable KARIN CASTILLOP Unavailable Unavailable AIMEE QUESADA DE Unavailable Unavailable MENDEL QUESADA Unavailable Unavailable Ryann QUESADA Unavailable Unavailable Celina QUESADA Unavailable Unavailable Ivana QUESADA Unavailable Unavailable Unavailable Unavailable Unavailable Functional Status Name Dates Details Functional status health issues are not documented Status: Name Dates Details Cognitive status health issues are not documented Status: Problems Name Dates Details CAD (coronary artery disease) (414.00, I25.10) Status: Active Dyspnea (786.09, R06.00) Status: Active Carotid artery stenosis (433.10, I65.29) Status: Active 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, 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 Vocal cord paralysis (478.30, J38.00) St atus: Active Open wound (879.8, T14.8XXA) Status: Act gonzalo Medications Name Dates Details Breo Ellipta AEPB Refills: 0 Active Nitroglycerin 0.4 MG Sublingual Tablet Sublingual Refills: 0 Active Tamsulosin HCl CAPS Refills: 0 Active Aspirin 81 MG TABS Refills: 0 Active Albuterol AERS Refills: 0 Active Allergies and Adverse Reactions Name Dates Details No Known Drug Allergies (Allergy) Status : Active Past Medical History Name Dates Details History of chronic obstructive lung disease (V12.69, Z87.09) Status: Resolved History of hypertension (V12.59, Z86.79) Status: Resolved History of malignant mesothelioma (V10.89, Z85.89) Status: Resolved Procedures Procedure Dates Details [N] 2D Echo complete, with Doppler 52880 Date: 07-Nov-2019 CVRAD - Bilateral Carotid Duplex - 96035 Date: 23-Nov-2019 History of Aortic aneurysm repair Comple amaury Immunization Name Dates Details Immunizations not documented Family History Name Dates Details Family history of ischemic heart disease (V17.3, Z82.49) Comments: Family History Status: Active Social History Name Dates Details - Status: Name Dates Details Smoker (finding) Vital Signs Date Test Result Details No Known Vitals to report Results Date Description Value Details Results not documented Plan of Care Name Dates Details Planned Observations Planned Goals not documented Planned Encounters Appointment; AUDREY MCKEON On: 04-Dec-2019 14:00 Appointment; DENISA YU M.D. On: 04-Dec-2019 14 :40 Interventions Provided Labs/Procedures/ImagingCVRAD - Bilateral Carotid Duplex - 85800; To Be Done: 23 Nov 2019PlanPatient will have a carotid duplex today. Possibly CTA of head and neck. Instructions Name Dates Details Instructions not documented Encounters Appointment; ANIL GARZON M.D. On: 27-May-2018 1 1:00 Encounter Diagnosis: Problem not documented Appointment; GALLO PATRICK M.D. On: 06-Jun-2018 14:15 Encounter Diagnosis: Problem not documented Appointment; GALLO PATRICK M.D. On: 16-Jun-2018 10:15 Encounter Diagnosis: Problem not documented Appointment; RUBÉN JIANG M.D. On: 20-Jun-2018 12:00 Encounter Diagnosis: Problem not documented Appointment; RUBÉN JIANG M.D. On: 29-Jun-2018 13:30 Encounter Diagnosis: Problem not documented Appointment; GALLO PATRICK M.D. On: 07-Jul-2018 9:30 Encounter Diagnosis: Problem not documented Appointment; RUBÉN JIANG M.D. On: 07-Jul-2018 16:00 Encounter Diagnosis: Problem not documented Appointment; RUBÉN JIANG M.D. On: 21-Jul-2018 10:30 Encounter Diagnosis: Problem not documented Appointment; RUBÉN JIANG M.D. On: 04-Aug-2018 9:45 Encounter Diagnosis: Problem not documented Appointment; RUBÉN JIANG M.D. On: 17-Aug-2018 10:45 Encounter Diagnosis: Problem not documented Appointment; RUBÉN JIANG M.D. On: 31-Aug-2018 11:30 Encounter Diagnosis: Problem not documented Appointment; RUBÉN JIANG M.D. On: 07-Sep-2018 14:00 Encounter Diagnosis: Problem not documented Appointment; RUBÉN JIANG M.D. On: 14-Sep-2018 9:30 Encounter Diagnosis: Problem not documented Appointment; RUBÉN JIANG M.D. On: 21-Sep-2018 10:00 Encounter Diagnosis: Problem not documented Appointment; RUBÉN JIANG M.D. On: 28-Sep-2018 10:40 Encounter Diagnosis: Problem not documented Appointment; RUBÉN JIANG M.D. On: 05-Oct-2018 13:45 Encounter Diagnosis: Problem not documented Appointment; RUBÉN JIANG M.D. On: 24-Oct-2018 11:30 Encounter Diagnosis: Problem not documented Appointment; RUBÉN JIANG M.D. On: 07-Nov-2018 12:00 Encounter Diagnosis: Problem not documented Appointment; RUBÉN JIANG M.D. On: 23-Nov-2018 10:30 Encounter Diagnosis: Problem not documented Appointment; RUBÉN JIANG M.D. On: 07-Dec-2018 10:30 Encounter Diagnosis: Problem not documented Appointment; RENA HOLLOWAY M.D. On: 19-Dec-2018 14:30 Encounter Diagnosis: Problem not documented Appointment; RUBÉN JIANG M.D. On: 21-Dec-2018 10:30 Encounter Diagnosis: Problem not documented Appointment; RUBÉN JIANG M.D. On: 05-Jan-2019 14:30 Encounter Diagnosis: Problem not documented Appointment; GALLO PATRICK M.D. On: 30-Jan-2019 10:15 Encounter Diagnosis: Problem not documented Appointment; RUBÉN JIANG M.D. On: 01-Feb-2019 10:30 Encounter Diagnosis: Problem not documented Appointment; GALLO PATRICK M.D. On: 27-Feb-2019 9:30 Encounter Diagnosis: Problem not documented Appointment; RUBÉN JIANG M.D. On: 20-Apr-2019 14:20 Encounter Diagnosis: Problem not documented Appointment; RADIOLOGY, MD PROVIDER On: 28-Apr-2019 9: 30 Encounter Diagnosis: Problem not documented Appointment; RADIOLOGY, MD PROVIDER On: 01-May-2019 9: 30 Encounter Diagnosis: Problem not documented Appointment; RADIOLOGY, MD PROVIDER On: 04-May-2019 10 :00 Encounter Diagnosis: Problem not documented Appointment; RBUÉN JIANG M.D. On: 11-May-2019 12:00 Encounter Diagnosis: Problem not documented Appointment; RADIOLOGY, MD PROVIDER On: 17-May-2019 10: 30 Encounter Diagnosis: Problem not documented Appointment; RUBÉN JIANG M.D. On: 08-Jun-2019 10:35 Encounter Diagnosis: Problem not documented Appointment; RUBÉN JIANG M.D. On: 06-Jul-2019 14:00 Encounter Diagnosis: Problem not documented Appointment; RUBÉN JIANG M.D. On: 13-Jul-2019 15:00 Encounter Diagnosis: Problem not documented Appointment; GALLO PATRICK M.D. On: 20-Jul-2019 9:30 Encounter Diagnosis: Problem not documented Appointment; RUBÉN JIANG M.D. On: 10-Aug-2019 12:45 Encounter Diagnosis: Problem not documented Appointment; GALLO PATRICK M.D. On: 14-Aug-2019 9:30 Encounter Diagnosis: Problem not documented Appointment; GALLO PATRICK M.D. On: 21-Aug-2019 9:15 Encounter Diagnosis: Problem not documented Appointment; RUBÉN JIANG M.D. On: 07-Sep-2019 14:10 Encounter Diagnosis: Problem not documented Appointment; RUBÉN JIANG M.D. On: 19-Oct-2019 10:00 Encounter Diagnosis: Problem not documented Appointment; ANIL GARZON M.D. On: 23-Nov-2019 8: 45 Encounter Diagnosis: Problem not documented
--- OUTSIDE RECORDS SUMMARY | 2019-12-29 13:21 | XMS REPORT | Summary of Care ---
:1945 Author Name Marcelojenna Address Unavailable Unavailable , Care Team Providers Name Role Phone RYANN Chavira Unavailable Unavailable THANH QUESADA Unavailable Unavailable Archie QUESADA Unavailable Unavailable CELINA QUESADA Unavailable Unavailable ELIEL HARTLEY MD Unavailable Unavailable KARIN CASTILLOP Unavailable Unavailable AIMEE QUESADA UT Unavailable Unavailable MENDEL QUESADA Unavailable Unavailable Ryann [...] Details [N] 2D Echo complete, with Doppler 46766 Date: 07-Nov-2019 CVRAD - Bilateral Carotid Duplex - 70609 Date: 23-Nov-2019 History of Aortic aneurysm repair [...] Goals not documented Planned Encounters Appointment; AUDREY MCKENO On: 04-Dec-2019 14:00 Appointment; DENISA YU M.D. On: 04-Dec-2019 14 :40 Interventions Provided Labs/Procedures/ImagingCVRAD - Bilateral Carotid Duplex - 51020; To Be Done: 23 Nov 2019 Instructions Name Dates Details Instructions not documented [...] :00 Encounter Diagnosis: Problem not documented Appointment; RUBÉN JIANG M.D. On: 11-May-2019 12:00 Encounter Diagnosis: Problem not documented Appointment; RADIOLOGY MD PROVIDER On: 17-May-2019 10: 30 Encounter [...]
[2019-12-29] MEDS ORDERED: FENTANYL CITR 100 MCG/2 ML ONE (16:22)
[2019-12-29] MEDS ORDERED: ONDANSETRON 4 MG/2 ML VIAL ONE (16:22)
[2019-12-29 16:46] LABS: Absolute Lymphocytes (CBC) 0.5 K/uL (0.7-4.9); Basophils % 0.9 % (0-1.3); Hematocrit 38.3 % (39.6-49.0); MPV 6.8 fL (7.6-11.3); Protime INR 1.01; RBC Red Blood Cell Count 4.04 M/uL (4.33-5.43)
[2019-12-29 17:00] LABS: ALT/SGPT 14 U/L (12-78); AST/SGOT 12 U/L (15-37); Albumin 4.1 g/dL (3.4-5.0); Alkaline Phosphatase 65 U/L (45-117); BUN Blood Urea Nitrogen 9 mg/dL (7-18); Bicarbonate 32 mmol/L (21-32); Bilirubin Direct < 0.1 mg/dL (0-0.2); Bilirubin Total 0.3 mg/dL (0.2-1.0); Glucose Level 120 mg/dL (74-106); Magnesium 2.1 mg/dL (1.8-2.4); NT PRO-BNP 767 pg/mL (<125); Protein, Total 7.3 g/dL (6.4-8.2); Sodium Level 129 mmol/L (136-145); Troponin (Emerg Dept Use Only) 0.08 ng/mL (0.0-0.045)
--- NOTE | 2019-12-29 17:15 | RAD REPORT ---
EXAM DESCRIPTION: RAD - Chest Single View - 12/29/2019 4:22 pm CLINICAL HISTORY: DYSPNEA Chest pain. COMPARISON: Chest Single View dated 11/05/2019; Chest Single View dated 11/05/2019; Chest Single View dated 11/04/2019; Chest Single View dated 11/03/2019 FINDINGS: Portable technique limits examination quality. Large right-sided pneumothorax is noted. The lungs are emphysematous but clear. The heart is normal i n size. No displaced fractures. IMPRESSION: Large right-sided pneumothorax.
--- NOTE | 2019-12-29 17:20 | ER ---
Nurse's Notes [facility] Name: Lei Timmons Age: 74 yrs Sex: Male : 1945 Arrival Date: 12/29/2019 Time: 13:18 Bed 18 Private MD: Diagnosis: Pleural effusion, not elsewhere classified;Pneumothorax, unspecified-Right Lung Presentation: 12/28 13:19 Chief complaint: Patient states: "I was in here about a month a ago with a tear in my jd3 lung. this pain is similar. they had to a chest tube in last time.". Coronavirus screen: At this time, the client does not indicate any symptoms associated with coronavirus-19. Ebola Screen: Patient negative for fever greater than or equal to 101.5 degrees Fahrenheit, and additional compatible Ebola Virus Disease symptoms. Initial Sepsis Screen: Does the patient have a suspected source of infection? No. Patient's initial sepsis screen is negative. Initial Sepsis Screen: Does the patient meet any 2 criteria? No. Patient's initial sepsis screen is negative. Risk Assessment: Do you want to hurt yourself or someone else? Patient reports no desire to harm self or others. Onset of symptoms was December 29, 2019. 13:19 Method Of Arrival: Ambulatory [facility] 13:19 Acuity: ALYSON 3 jd3 Historical: - Allergies: 17:34 Morphine; jl7 - Home Meds: 17:34 lisinopril-hydrochlorothiazide 10-12.5 mg oral tab 1 tab once daily [Active]; jl7 levothyroxine 75 mcg tab 1 tab once daily [Active]; Flomax 0.4 mg Oral cp24 [Active]; trazodone 150 mg oral tab [Active]; Lasix 20 mg Oral tab [Active]; Breo Ellipta inhalation [Active]; - PMHx: 17:34 Cancer; ESOPHAGEAL; COPD; Hypertension; jl7 - Immunization history:: Adult Immunizations unknown. - Social history:: Smoking status: Patient reports the use of cigarette tobacco products. Screenin:15 Abuse screen: Denies threats or abuse. Denies injuries from another. Nutritional jl7 screening: No deficits noted. Tuberculosis screening: No symptoms or risk factors identified. Fall Risk IV access (20 points). Total Austin Fall Scale indicates No Risk (0-24 pts). Assessment: 15:40 General: Appears in no apparent distress. uncomfortable, slender, Behavior is calm, jl7 cooperative, appropriate for age. Pain: Complains of pain in chest Pain currently is 9 out of 10 on a pain scale. Neuro: Level of Consciousness is awake, alert, obeys commands, Oriented to person, place, time, situation. Cardiovascular: Patient's skin is warm and dry. Rhythm is sinus rhythm. Respiratory: Airway is patent Respiratory effort is even, labored, Respiratory pattern is symmetrical, tachypnea Breath sounds are diminished in right posterior lower lobe and right posterior middle lobe. Derm: Skin is pink, warm \\T\\ dry. 15:47 Reassessment: ERP at bedside, VO for stat chest x-ray. jl7 16:40 Reassessment: Dr. Kennedy at bedside for chest tube insertion. jl7 17:30 Reassessment: ERP at bedside discussing results and POC for transfer, pt and son oscar verbalize understanding. 19:33 Reassessment: received patient from SIL Salguero. with chest tube on right thorax, hooked rv to pleurovac, on continues suctioning at 80, with intermittent bubbling noted consistent with each respiration. patient is comfortable laying on the bed on his back, with oxygen saturation at 100% at 2 lpm NC. received pleurovac level at 190 ml. Pain: Denies pain. Neuro: Level of Consciousness is awake, alert, obeys commands, Oriented to person, place, time, situation. Cardiovascular: Patient's skin is warm and dry. Rhythm is sinus rhythm. Respiratory: Airway is patent Respiratory effort is even, unlabored, Respiratory pattern is regular, symmetrical. Vital Signs: 13:22 BP 159 / 83; Pulse 83; Resp 23 S; Temp 97.3(TE); Pulse Ox 100% on R/A; Weight 74.84 kg jd3 (R); Height 6 ft. 0 in. (182.88 cm) (R); Pain 9/10; 15:40 BP 183 / 81; Pulse 79; Resp 34 S; Pulse Ox 91% on R/A; jl7 16:00 BP 164 / 75; Pulse 80; Resp 23 S; Pulse Ox 98% on 2 lpm NC; jl7 17:15 BP 150 / 62; Pulse 70; Resp 19 S; Pulse Ox 100% on 2 lpm NC; jl7 19:00 BP 137 / 68; Pulse 65; Resp 19; Pulse Ox 100% on 2 lpm NC; rv 19:41 BP 131 / 53; Pulse 67; Resp 16; Pulse Ox 100% on 2 lpm NC; rv 13:22 Body Mass Index 22.38 (74.84 kg, 182.88 cm) jd3 ED Course: 13:18 Patient arrived in ED. as 13:21 Triage completed. jd3 13:22 Arm band placed on. jd3 15:36 Noemy Thornton, SIL is Primary Nurse. jl7 15:37 Pino Linares PA is PHCP. cp 15:37 Pino Alvarenga MD is Attending Physician. cp 15:40 Patient has correct armband on for positive identification. Placed in gown. Bed in low jl7 position. Call light in reach. Side rails up X2. threat monitoring analyst on. Pulse ox on. NIBP on. Warm blanket given. 16:00 Initial lab(s) drawn, by me, sent to lab. Inserted saline lock: 20 gauge in right jl7 forearm, using aseptic technique. Blood collected. 16:22 Chest Single View XRAY In Process Unspecified. EDMS 17:00 Assist provider with chest tube insertion with 24 Fr. in right lateral chest wall. Tray jl7 was set up. Attached to pleDonuts-e-vac. Chest tube inserted by Paul Kennedy MD Placement verified by CXR, fluctuation of fluid, Dressed with Vaseline gauze, foam tape, Patient tolerated poorly. 17:18 Fazal Soares DO is Hospitalizing Provider. cp 17:34 Chest Single View XRAY In Process Unspecified. EDMS 17:46 initiated a transfer with Kaye Irvin from the [facility] Transfer center. eb 18:09 COVID-19 Sent. jl7 18:[address] Amor the cardiothoracic surgeon vision specialist for [facility] with Pino LUNDBERG for patient transfer consultation. 18:38 Kaye called back and stated they will have a tele bed for the pt. Asked to speak tt3 with TAMIKA Rebolledo, and was transferred to him. 19:41 Tessa Graff called and gave admin approval. The accepting physician is Gulshan Dyson tt3 Face sheet to be faxed to per Tessa's request. Nurse to call report to [phone]. 20:40 Patient transferred, IV remains in place. intact, No redness/swelling at site. sg Administered Medications: 16:15 Drug: Zofran (Ondansetron) 4 mg Route: IVP; Site: right forearm; jl7 16:15 Drug: fentaNYL (PF) 25 mcg Route: IVP; Site: right forearm; jl7 16:35 Drug: fentaNYL (PF) 25 mcg Route: IVP; Site: right forearm; jl7 Outcome: 17:19 Decision to Hospitalize by Provider. cp 17:25 ER care complete, transfer ordered by MD. cp 20:15 Transferred by ground EMS to [facility], X-rays sent w/ patient. sg Note: Report given to Keila MUJICA at [facility] 20:15 Condition: stable 20:40 Patient left the ED. sg Signatures: Dispatcher [employer] EDMS Humphrey Hansen RN RN sg Daisha Kennedy Corey, PA PA cp Noemy Thornton RN RN jl7 Vidal Malcolm RN RN jd3 Kaye Alva Ronaldo RN RN rv Mango Romero tt3 Corrections: (The following items were deleted from the chart) 13:25 13:22 BP 159 / 83; Pulse 83bpm; Resp 20bpm; Spontaneous; Pulse Ox 100% RA; Temp 97.3F jd3 Temporal; 74.84 kg Reported; Height 6 ft. 0 in. Reported; BMI: 22.3; Pain 9/10; jd3 19:38 19:33 Reassessment: received patient from SIL Salguero. with chest tube on right thorax, rv hooked to pleurovac, on continues suctioning at 80. patient is comfortable laying on the bed on his back, with oxygen saturation at 100% at 2 lpm NC. received pleurovac level at 200 ml. rv 20:05 19:33 Reassessment: received patient from SIL Salguero. with chest tube on right thorax, rv hooked to pleurovac, on continues suctioning at 80, with intermittent bubbling noted consistent with each respiration. patient is comfortable laying on the bed on his back, with oxygen saturation at 100% at 2 lpm NC. received pleurovac level at 200 ml. rv
--- NOTE | 2019-12-29 17:20 | EDPHYS ---
Physician Documentation [facility] Name: Lei Timmons Age: 74 yrs Sex: Male : 1945 Arrival Date: 12/29/2019 Time: 13:18 Bed 18 Private MD: CHRISTINE Physician Pino Alvarenga HPI: 12/28 16:00 This 74 yrs old Male presents to ER via Ambulatory with complaints of cp Shortness Of Breath. 16:00 The patient has shortness of breath with light activity. Onset: The symptoms/episode cp began/occurred this morning. Duration: The symptoms are continuous, and are steadily getting worse. Associated signs and symptoms: Pertinent positives: chest pain, non-productive cough, Pertinent negatives: diaphoresis, dizziness, fever. Severity of symptoms: in the emergency department the symptoms are unchanged despite home interventions. 16:00 Patient reports history of spontaneous right lung pneumothorax in October 2019 that cp required placement of chest tube by DR Kennedy. Historical: - Allergies: 17:34 Morphine; jl7 - Home Meds: 17:34 lisinopril-hydrochlorothiazide 10-12.5 mg oral tab 1 tab once daily [Active]; jl7 levothyroxine 75 mcg tab 1 tab once daily [Active]; Flomax 0.4 mg Oral cp24 [Active]; trazodone 150 mg oral tab [Active]; Lasix 20 mg Oral tab [Active]; Breo Ellipta inhalation [Active]; - PMHx: 17:34 Cancer; ESOPHAGEAL; COPD; Hypertension; jl7 - Immunization history:: Adult Immunizations unknown. - Social history:: Smoking status: Patient reports the use of cigarette tobacco products. ROS: 16:10 Respiratory: Positive for cough, "sounds productive", shortness of breath, on exertion. cp Negative for wheezing. 16:10 Constitutional: Negative for body aches, chills, fever, poor PO intake. cp 16:10 Cardiovascular: Positive for chest pain, Negative for edema, palpitations. 16:10 Abdomen/GI: Negative for abdominal pain, nausea, vomiting, and diarrhea. 16:10 Neuro: Negative for altered mental status, dizziness, headache, weakness. 16:10 All other systems are negative. Exam: 16:11 Constitutional: The patient appears in no acute distress, alert, awake, cp non-diaphoretic, non-toxic, well developed, well nourished, uncomfortable. 16:11 Head/Face: Normocephalic, atraumatic. cp 16:11 Eyes: Periorbital structures: appear normal, Conjunctiva: normal, no exudate, no injection, Sclera: no appreciated abnormality, Lids and lashes: appear normal, bilaterally. 16:11 ENT: External ear(s): are unremarkable, Nose: is normal, Mouth: Lips: moist, Oral mucosa: moist, Posterior pharynx: Airway: no evidence of obstruction, patent. 16:11 Neck: ROM/movement: is normal, is supple, without pain, no range of motions limitations. 16:11 Chest/axilla: Inspection: normal, Palpation: is normal, no crepitus, no tenderness. 16:11 Cardiovascular: Rate: normal, Rhythm: regular, Edema: is not appreciated, JVD: is not appreciated. 16:11 Respiratory: the patient does not display signs of respiratory distress, Respirations: normal, no use of accessory muscles, no retractions, labored breathing, is not present, Breath sounds: decreased breath sounds, that are moderate, are heard in the right posterior middle lobe and right posterior lower lobe, stridor, is not appreciated, wheezing: is not appreciated. 16:11 Abdomen/GI: Inspection: abdomen appears normal, Palpation: abdomen is soft and non-tender, in all quadrants. 16:11 Neuro: Orientation: to person, place \\T\\ time. Mentation: is normal, Cerebellar function: is grossly normal, Motor: moves all fours, strength is normal, Sensation: is normal. 18:30 ECG was reviewed by the Attending Physician. cp Vital Signs: 13:22 BP 159 / 83; Pulse 83; Resp 23 S; Temp 97.3(TE); Pulse Ox 100% on R/A; Weight 74.84 kg jd3 (R); Height 6 ft. 0 in. (182.88 cm) (R); Pain 9/10; 15:40 BP 183 / 81; Pulse 79; Resp 34 S; Pulse Ox 91% on R/A; jl7 16:00 BP 164 / 75; Pulse 80; Resp 23 S; Pulse Ox 98% on 2 lpm NC; jl7 17:15 BP 150 / 62; Pulse 70; Resp 19 S; Pulse Ox 100% on 2 lpm NC; jl7 19:00 BP 137 / 68; Pulse 65; Resp 19; Pulse Ox 100% on 2 lpm NC; rv 19:41 BP 131 / 53; Pulse 67; Resp 16; Pulse Ox 100% on 2 lpm NC; rv 13:22 Body Mass Index 22.38 (74.84 kg, 182.88 cm) jd3 MDM: 16:06 Patient medically screened. odilia 16:08 Physician consultation: Paul Kennedy MD was called at 16:05, was contacted at 16:05, cp regarding consult, patient's condition, reports he is at least an hour away and not available for immediate consult on the patient. 16:14 Data reviewed: vital signs, nurses notes, radiologic studies, plain films. Test cp interpretation: by ED physician or midlevel provider: chest xray shows right side pneumothorax. Physician consultation: Renzo Steward MD was called at 16:10, was contacted at 16:10, regarding consult, patient's condition, and will see patient in ED, shortly. 16:45 ED course: DR Kennedy at bedside to perform placement of chest tube. 18:16 Physician consultation: was contacted at 18:17, regarding regarding transfer, to [facility]. DR Amor, cardiothoracic surgeon, will be accepting physician. Reports patient is a candidate for VATS procedure. 12/28 15:53 Order name: COVID-19 12/28 15:53 Order name: Basic Metabolic Panel 12/28 15:53 Order name: CBC with Diff 12/28 15:53 Order name: LFT's 12/28 15:53 Order name: Magnesium; Complete Time: 17:08 12/28 15:53 Order name: NT PRO-BNP; Complete Time: 17:08 12/28 15:47 Order name: Chest Single View XRAY; Complete Time: 17:17 jl7 12/28 15:53 Order name: PT-INR; Complete Time: 17:08 12/28 15:53 Order name: Troponin (emerg Dept Use Only); Complete Time: 17:08 12/28 17:08 Interpretation: Abnormal: TROPED 0.08. 12/28 15:54 Order name: Basic Metabolic Panel; Complete Time: 17:08 EDMS 12/28 17:08 Interpretation: Normal except: NA 129; CL 92; GLUC 120. cp 11/13 15:54 Order name: CBC with Automated Diff; Complete Time: 17:08 [facility] 12/28 17:09 Interpretation: Normal except: RBC 4.04; HGB 13.1; HCT 38.3; MPV 6.8; INO% 84.6; LYM% cp 5.0; LYMA 0.5. 12/28 15:54 Order name: Liver (Hepatic) Function; Complete Time: 17:08 [facility] 12/28 19:58 Order name: SARS-COV-2 RT PCR EDWY 12/28 15:53 Order name: EKG; Complete Time: 15:54 12/28 15:53 Order name: Cardiac monitoring; Complete Time: 17:29 12/28 15:53 Order name: EKG - Nurse/Tech; Complete Time: 18:09 12/28 15:53 Order name: IV Saline Lock; Complete Time: 17:29 12/28 15:53 Order name: Labs collected and sent; Complete Time: 17:29 12/28 15:53 Order name: O2 Per Protocol; Complete Time: 17:29 12/28 15:53 Order name: O2 Sat Monitoring; Complete Time: 17:29 12/28 17:08 Order name: Chest Single View XRAY; Complete Time: 17:54 12/28 17:54 Interpretation: Report reviewed. EC:30 Rate is 67 beats/min. Rhythm is regular. HI interval is normal. QRS interval is normal. cp QT interval is normal. T waves are Inverted in leads aVR, V2. Interpreted by me. Reviewed by me. Administered Medications: 16:15 Drug: Zofran (Ondansetron) 4 mg Route: IVP; Site: right forearm; jl7 16:15 Drug: fentaNYL (PF) 25 mcg Route: IVP; Site: right forearm; jl7 16:35 Drug: fentaNYL (PF) 25 mcg Route: IVP; Site: right forearm; jl7 Disposition: 18:00 Chart complete. 12/29 08:17 Co-signature as Attending Physician, Pino Alvarenga MD I agree with the assessment and odilia plan of care. Disposition: 12/29/19 17:25 Transfer ordered to [facility]. Diagnosis are Pleural effusion, not elsewhere classified, Pneumothorax, unspecified - Right Lung. - Reason for transfer: Higher level of care. - Accepting physician is DR Amor. - Condition is Stable. - Problem is new. - Symptoms have improved. Signatures: Dispatcher [employer] EDWY Humphrey Hansen, RN RN Pino Orellana MD MD cha Page, Corey, TAMIKA PA cp Noemy Thornton, RN RN jl7 Vidal Malcolm RN RN jd3 Corrections: (The following items were deleted from the chart) 12/28 17:24 17:19 Hospitalization Ordered by Fazal Soares DO for Inpatient Admission. Preliminary cp diagnosis is Pleural effusion in conditions classified elsewhere - Right Lung; Pneumothorax, unspecified - Right Lung. Bed requested for Telemetry/MedSurg (Inpatient). Status is Inpatient Admission. Condition is Stable. Problem is new. Symptoms have improved. cp 18:58 15:54 CORONAVIRUS ordered. EDWY EDWY 20:07 17:25 12/29/2019 17:25 Transfer ordered to [facility]. cp Diagnosis is Pleural effusion, not elsewhere classified; Pneumothorax, unspecified - Right Lung. Reason for transfer: Higher level of care. Accepting physician is Doctor. Condition is Stable. Problem is new. Symptoms have improved. cp 20:40 20:07 12/29/2019 17:25 Transfer ordered to [facility]. sg Diagnosis is Pleural effusion, not elsewhere classified; Pneumothorax, unspecified - Right Lung. Reason for transfer: Higher level of care. Accepting physician is DR Amor. Condition is Stable. Problem is new. Symptoms have improved. cp
--- NOTE | 2019-12-29 17:48 | RAD REPORT ---
EXAM DESCRIPTION: RAD - Chest Single View - 12/29/2019 5:34 pm CLINICAL HISTORY: placement of right side chest tube Chest pain. COMPARISON: Chest Single View dated 12/29/2019; Chest Single View dated 11/05/2019; Chest Single View dated 11/05/2019; Chest Single View dated 11/04/2019 FINDINGS: Portable technique limits examination quality. A right-sided chest tube has been placed, directed cephalad. Subcutaneous emphysema is present along the right thoracic cage. The previously noted pneumothorax has been decompressed. The lungs are emphy sematous. The heart is upper limit of normal in size. IMPRESSION: Chest tube placement with decompression of the previous noted pneumothorax on the right.
--- NOTE | 2019-12-29 21:10 | OP ---
Date of Procedure: 12/29/2019 Surgeon: Paul Kennedy MD Procedure: Placement of a chest tube in the right side under aseptic condition. Description Of Procedure: After reviewing the x-ray and having time-out, we proceeded to prep and dr ape the right chest in usual sterile fashion. Local anesthetic was applied followed by a small incis ion right about around the area of the fifth intercostal space anterior axillary line. At that momen t, I proceeded to create a tunnel, went over the rib on that same area, and then we went inside, we o btained a reese of air. Finger was introduced sterilely to break any loculations that the patient may have since the patient has previous chest tube. The chest tube was placed in that area and secured in place with silk. Connected to Pleur-evac. Effusion that shows is clear, still have an air leak p resent, probably the same air leak that caused the pneumothorax. The patient tolerated the procedure well, covered with sterile dressings and Vaseline gauze around the area after they sutured that in p lace and then ordered an x-ray stat. The patient tolerated the procedure well. ERMA/JOY Voice ID: [id number] Report ID: [id number]
--- NOTE | 2019-12-29 22:25 | CON ---
Date of Consultation: 12/29/2019 Reason For Service: Right recurrent spontaneous pneumothorax. History Of Present Illness: This is a case of a 74-year-old patient known by us since about a month and a half ago. The patient developed a spontaneous pneumothorax on the right chest. The patient re ceived chest tube, received Pulmonology Consult, advised to see his thoracic surgeon, but he has not been able to do so. He stopped smoking at that moment, but in the last few days, he resumed smoking and he just apologized for that. He knew he is not supposed to do so, but he just gave to it and rig ht now in the ER once again with a spontaneous pneumothorax on the right side. He denies any trauma. Denies any dysuria, hematuria, hematochezia, melena. Denies any recent traveling out [place]. Denies any family member sick at home. Last time he was here, he was seen by our agriculture engineer, Dr. Galvan, but no definitive treatment was done at that moment for pleurodesis or any other surgic al procedures. The patient has a history of COPD, hypertension, esophageal cancer, history of chemo- radiation therapy, mesothelioma, coronary artery disease. Alcohol use occasionally. Current smoker. He used to smoke he stated three and half pack per day and now he is less than that. He stated jeana t it is too expensive, it is about 8 dollars a package, and he is trying to use that as a motivation to stop smoking, but unfortunately he has not. Medications: Include aspirin, Flomax, nitroglycerin, Lasix, trazodone. Family History: Noncontributory. Review of Systems: Ten points otherwise unremarkable. Denies any fever, any abdominal pain. Physical Examination: General: The patient is awake, alert. Eyes: Pupils anicteric. Neck: Supple. Chest: Clear. Diminished breath sounds on the right side. Abdomen: Soft and depressible. No guarding or rebound. Extremities: Good capillary refill. Laboratory Data: Chest x-ray shows right large pneumothorax. Also, the patient has a previous CT sc an done in November 04, 2019. At that moment, we saw some pleural effusion, emphysema. Assessment: A 74-year-old patient with spontaneous pneumothorax, also smoking, history of esophageal cancer. I fully explained to him the importance of smoking cessation addiction treatment counselor. He was counseled abo ut that, helped was offered. This is the second time that happened to him. He has his previous thor acic surgeons because he has history of esophageal cancer. I will request the hospitalist to conside r this patient as a transfer to a Thoracic Service. A chest x-ray will be ordered now. He still has a leak. The fluid coming out is clear. No blood. He has also had evidence of pleural effusion, on ce again clear. Once again, we are going to obtain a consult from Dr. Galvan to consider options, either transferring to the Thoracic Service or pleurodesis depends. We going to follow his recommend ations. Continue a Pleur-evac to suction and we are going to repeat the x-ray tomorrow morning. ERMA/JOY Voice ID: [id number] Report ID: [id number]
[2019-12-29 23:45] VITALS: TEMP 97.3
[2019-12-29 23:50] VITALS: O2SAT 100
[2019-12-29 23:53] VITALS: BP 131/53
--- NOTE | 2019-12-31 07:44 | EKG ---
Test Date: 2019-12-29 Test Time: 18:06:59 [employer] Production Editor: CELESTE MEASUREMENT RESULTS: Intervals: Rate: 67 NC: 130 QRSD: 96 QT: 408 QTc: 431 [place]: P: 67 NC: 130 QRS: 83 T: 69 INTERPRETIVE STATEMENTS: Sinus rhythm with premature atrial complexes Otherwise normal ECG Compared to ECG 11/05/2019 01:14:55 Atrial premature complex(es) now present T-wave abnormality no longer present Electronically Signed On 12-31-19 07:41:02 [employer]ON[employer] by Gume Andrews
== END 2019-12-29 20:40 | disposition short-term general hospital (02) ==
LOC: ER 13:17
PROC: 0W9900Z Drainage of Right Pleural Cavity with Drainage Device, Open Approach (ICD-10-PCS; principal; 2019-12-29)
DX: J93.9 Pneumothorax, unspecified (principal); J90 Pleural effusion, not elsewhere classified; J44.9 Chronic obstructive pulmonary disease, unspecified; I10 Essential (primary) hypertension; I25.10 Atherosclerotic heart disease of native coronary artery without angina pectoris; C45.9 Mesothelioma, unspecified; Z85.01 Personal history of malignant neoplasm of esophagus; Z20.828 Contact with and (suspected) exposure to other viral communicable diseases
CPT/HCPCS: 93005 ×2; 85025; 80048; 36415; 83735; 85610; 80076; 84484; 83880; 71045 ×2; 96375; 96374; 99285; 32551; U0003; J3010; J2405

== ENCOUNTER 2020-06-12 08:07 | Emergency (ER) | payer OTHER ==
--- OUTSIDE RECORDS SUMMARY | 2020-06-12 08:13 | XMS REPORT | Continuity of Care Document ---
:1945 Author Organization Formerly [facility] t Address [address] [place] [address] Care Team Providers Name Role Phone Mike Lund Attending Clinician Lakeshia Bowden MD Attending Clinician LAKESHIA BOWDEN Attending Clinician Unavailable Lakeshia Bowden MD Attending Clinician Obey QUESADA Attending Clinician Shawn Jarrett Attending Clinician RYANN Attending Clinician Unavailable APOLINAR Attending Clinician Unavailable CELINA Attending Clinician Unavailable RADIOLOGY Attending Clinician Unavailable AMIE Attending Clinician Unavailable LAKESHIA BOWDEN Admitting Clinician Unavailable Payers Payer Name Policy Type Policy Effective Date Expiration Date Sour ce Number CIGNA [id number] [address] [facility] 00:[facility]00 - [facility] [id number] 2019-Pr esentMaps Contracted Problems Condition Condition Condition Status Onset Resolution Last Treating Co mments Source Name Details Category Date Date Treatment Clinician Date Pneumothor Pneumothor Disease Active 2019-[address] ax, right ax, right 02-28 [facility] - 00:[facility]: Medical 00 Center Pneumothor Pneumothor Disease Active 2019-02 Overview [facility] - right right 00:00: automatic Medical 00 ally from Center request for surgery [id number] History of History of Problem Resolve [facility] [...] [place] [facility] Allergies, Adverse Reactions, Alerts Allergy Allergy Status Severity Reaction(s) Onset Inactive Treating Comm ents Source Name Type Date Date Clinician Morphine Propensi Active Other (See 2019-[address] [facility] to Comments) 1 [facility] - adverse 00:00: Medical reaction 00 Center s Family History Family Member Diagnosis Comments Start Date Stop Date Source Natural father Heart disease [facility] Unknown Family Family history of Family History [facility] ischemic heart [place] [facility] disease Social History Social Habit Start Date Stop Date Quantity Comments Source Sex Assigned At [facility] Cigarettes smoked 2020-01-05 2020-01-[address] [facility] - current (pack per 00:00:00 00:00:00 [facility] day) - Reported Cigarette 2020-01-05 2020-01-05 [facility] - pack-years 00:00:00 00:00:00 [facility] Tobacco use and 2020-01-05 2020-01-05 [facility] - exposure 00:00:00 00:00:00 [facility] Alcohol intake 2020-01-05 2020-01-05 [facility] - 00:[facility]00 00:00:00 of alcohol [facility] (finding) Alcohol Comment 2019-12-30 2019-12-30 2-[address] [facility] - 00:00:00 00:00:00 beer a week Medical Georgette collins Smoking Status Start Date Stop Date Source Smoker (finding) [facility] Current every day smoker 2020-01-05 00:00:00 [facility] Medications Ordered Filled Start Stop Current Ordering Indication Dosage Frequency Signature Comments Components Source Medication Medication Date Date Medication? Clinician (SIG) Name Name metoprolol 2019-02- No 12.5mg QD Take 0.[address] succinate - 11-26 tablets [facility] - (TOPROL-XL) 00:00: 23:59 (12.5 mg M edical 25 MG 24 hr 00 :00 total) by [address] ter tablet mouth daily. lisinopril- 2019-02 Yes 1{tbl} QD Take [address] hydroCHLORO 1-25 tablet by Breanne es - thiazide 16:44: mouth Medical (PRINZIDE,Z 08 daily. [place] ESTORETIC) 10-12.5 mg per tablet levothyroxi 2019-02 Yes 75ug Take [address] ne 1-25 mcg by [facility] - (SYNTHROID, 16:44: mouth Medic al LEVOTHROID) 08 Every Center 75 MCG morning on tablet an empty stomach. tamsulosin 2019-02 Yes .4mg QD Take 0.[address] (FLOMAX) 1-25 mg by [facility] - 0.4 mg Cap 16:44: mouth Medica l 24 hr 08 daily. [place] capsule traZODone 2019-02 Yes 150mg QD Take [address] (DESYREL) 1-25 mg by [facility] - 150 MG 16:44: mouth Medical tablet 08 nightly. [place] Missing or 2019-02 Yes 1{puff} QD Take [address] Non-Formula 1-25 puff by [facility] - ry 16:44: mouth Medical Medication [address] Elllipta inhalation . furosemide 2019-02- No 20mg QD Take [address] (LASIX) 20 1-25 11-25 by mouth Luke s - MG tablet 12:56: 00:00 daily. Medic al 42 :00 Center atorvastati 2019-02- No 20mg QD Take [address] n (LIPITOR) 1-25 11-25 tablet (20 L ukes - 20 MG 00:00: 23:59 mg total) Medica l tablet 00 :00 by mouth Center nightly. acetaminoph 2019-02- No 1000mg Take [address] en 1-25 12-05 tablets [facility] - (TYLENOL) 00:00: 23:59 (1,000 mg Me dical 500 MG 00 :00 total) by Center tablet mouth every 6 (six) hours for 10 days. gabapentin 2019-02- No 300mg [id number] Take [address] (NEURONTIN) 03-11 [id number] capsule [facility] - 300 MG 00:00: 23:59 3D (300 mg Medical capsule 00 :00 total) by Center mouth 3 (three) times daily for 10 days. traMADoL 2019-02- No 100mg Take 2 [facility] t (ULTRAM) 50 03-11 tablets Luke s - mg tablet 00:00: 23:59 (100 mg Medi suzanne 00 :00 total) by Center mouth every 6 (six) hours for 7 days. Max Daily Amount: 400 mg Breo Breo Yes Univers Ellipta Ellipta ity of AEPB AEPB [place] [facility] Nitroglycer Nitroglycer Yes U nivers in 0.4 MG in 0.4 MG ity o f Sublingual Sublingual Braydon as Tablet Tablet Physici Sublingual Sublingual ans Tamsulosin Tamsulosin Yes Uni vers HCl CAPS HCl CAPS [facility] [place] [facility] Aspirin 81 Aspirin 81 Yes Uni vers MG TABS MG TABS [facility] [place] [facility] Albuterol Albuterol Yes Unive rs AERS AERS [facility] [place] [facility] Vital Signs Vital Name Observation Time Observation Value Comments Source Systolic blood 2020-01-10 111 mm[Hg] [facility] - pressure 11:00: [facility] Diastolic blood 2020-01-10 53 mm[Hg] [facility] - pressure 11: [facility] Heart rate 2020-01-10 68 /min [facility] Body temperature 2020-01-10 35.94 Bing [facility] - [facility] Respiratory rate 2020-01-10 18 /min [facility] - : [facility] Oxygen saturation 2020-01-10 99 /min [facility] Bre[facility] - in Arterial blood 11: Medical nter by Pulse oximetry Body weight 2020-01-[address] [facility] - : [facility] BMI 2020-01-07 20.11 kg/m2 [facility] - : [facility] Body height 2019-12-30 182.9 cm [facility] - 00:00:00 Medical Center Body height 2019-05-04 71 [in_us] University 10:37:00 [place] [facility] Weight 2019-05-04 150.125 [lb_av] University o f 10:37:00 [place] [facility] Body mass index 2019-05-04 20.94 kg/m2 University o f (BMI) [Ratio] 10:37:00 [place] [facility] Body temperature 2019-05-04 96.2 [degF] Method: [facility] 10:37:00 Tympanic [place] [facility] Heart Rate 2019-05-04 59 /min Quality: Normal University o f 10:37:00 [place] [facility] Respiratory rate 2019-05-04 18 /min Quality: Normal Universi ty of 10:37:00 [place] [facility] O2 SAT 2019-05-04 96 % Source: [facility] 10:37:00 [place] [facility] Systolic blood 2019-05-04 167 mm[Hg] Location: [facility]; [facility] 10:37:00 Position: [place] [facility] Sitting Diastolic blood 2019-05-04 76 mm[Hg] Location: [facility]; [facility] 10:37:00 Position: [place] [facility] Systolic blood 2019-05-01 162 mm[Hg] Location: [facility]; [facility] 10:04:00 Position: [place] [facility] Diastolic blood 2019-05-01 63 mm[Hg] Location: [facility]; [facility] 10:04:00 Position: [place] [facility] S[facility] Body [...] Respiratory rate 2019-05-01 16 /min Quality: Normal Universi ty of 10:04:00 [place] [facility] O2 SAT 2019-05-01 98 % Source: [facility] 10:04:00 [place] [facility] Systolic blood 2019-04-28 144 mm[Hg] [facility] 10:05:[facility] [place] [facility] Diastolic blood 2019-04-28 69 mm[Hg] [facility] 10:05:00 Position: [place] [facility] Body height 2019-04-28 72 [in_us] University 10:05:00 [place] [facility] Weight 2019-04-28 151.25 [lb_av] University 10:05:00 [place] [facility] Body mass index 2019-04-28 20.51 kg/m2 University o f (BMI) [Ratio] 10:05:00 [place] [facility] Heart Rate 2019-04-28 64 /min [facility] 10:05:00 [place] [facility] O2 SAT 2019-04-28 96 % University 10:05:00 [place] [facility] BP Systolic 2019-01-30 130 mm[Hg] [facility] 10:46:00 Position: [place] [facility] BP Diastolic 2019-01-30 84 mm[Hg] [facility] 10:46:00 Position: [place] [facility] Height 2019-01-30 72 [in_us] University 10:46:00 [place] [facility] Weight 2019-01-30 141.8 [lb_av] University 10:46:00 [place] [facility] Body Mass Index 2019-01-30 19.23 kg/m2 University o f Calculated 10:46:00 [place] [facility] Temperature 2019-01-30 98.6 [degF] Method: Oral University 10:46:00 [place] [facility] Heart Rate 2019-01-30 70 /min [facility] 10:46:00 [place] [facility] Procedures Procedure Date / Time Performing Source Performed Clinician XR CHEST 2 VIEWS 2020-01-[address] [facility] - 11:24:00 [facility] XR CHEST 1 VIEW PORTABLE/BEDSIDE 2020-01-[address] [facility] - 13:17:00 [facility] XR CHEST 1 VIEW PORTABLE/BEDSIDE 2020-01-10 Frances Carmona [facility] - 04:37:00 [facility] XR CHEST 1 VIEW PORTABLE/BEDSIDE 2020-01-[address] [facility] - 15:13:00 [facility] XR CHEST 1 VIEW PORTABLE/BEDSIDE 2020-01-09 Frances Carmona h [facility] - 05:00:00 [facility] SARS-COV2/RT-PCR ([facility]) 2020-01-[address] [facility] - 13:11:00 [facility] XR CHEST 1 VIEW PORTABLE/BEDSIDE 2020-01-[address] [facility] - 12:23:00 [facility] XR CHEST 1 VIEW PORTABLE/BEDSIDE 2020-01-[address] [facility] - 04:07:00 [facility] XR CHEST 1 VIEW PORTABLE/BEDSIDE 2020-01-[address] [facility] - 14:02:00 [facility] XR CHEST 1 VIEW PORTABLE/BEDSIDE 2020-01-[address] [facility] - 03:34:00 [facility] PHOSPHORUS 2020-01-06 Cekmecelioglu, [facility] - 03:45:00 [facility] BASIC METABOLIC PANEL (7) 2020-01-06 Cekmecelioglu, [facility] - 03:45:00 [facility] MAGNESIUM 2020-01-06 Cekmecelioglu, [facility] - 03:45:00 [facility] CBC W/PLT COUNT & AUTO 2020-01-06 Cekmecelioglu, [facility] - DIFFERENTIAL 03:45:00 [facility] XR CHEST 1 VIEW PORTABLE/BEDSIDE 2020-01-05 Cekmecelioglu, [facility] - 06:39:00 [facility] MAGNESIUM 2020-01-05 Cekmecelioglu, [facility] - 05:44:00 [facility] PHOSPHORUS 2020-01-05 Cekmecelioglu, [facility] - 05:44:00 [facility] BASIC METABOLIC PANEL (7) 2020-01-05 Cekmecelioglu, [facility] - 05:44:00 [facility] CBC W/PLT COUNT & AUTO 2020-01-05 Cekmecelioglu, [facility] - DIFFERENTIAL 05:44:00 [facility] ECG 12-LEAD 2020-01-04 Cekmecelioglu, [facility] - 19:19:42 [facility] XR CHEST 1 VIEW PORTABLE/BEDSIDE 2020-01-04 Cekmecelioglu, [facility] - 17:07:00 [facility] BLOOD GAS, ARTERIAL 2020-01-04 Cekmecelioglu, [facility] - 17:01:00 [facility] CBC (HEMOGRAM ONLY) 2020-01-04 Cekmecelioglu, [facility] - 17:00:00 [facility] BASIC METABOLIC PANEL (7) 2020-01-04 Cekmecelioglu, [facility] - 17:00:00 [facility] PHOSPHORUS 2020-01-04 Cekmecelioglu, [facility] - 17:00:00 [facility] MAGNESIUM 2020-01-04 Cekmecelioglu, [facility] - 17:00:00 [facility] CALCIUM, IONIZED 2020-01-04 Cekmecelioglu, [facility] - 17:00:00 [facility] PT/APTT 2020-01-04 Cekmecelioglu, [facility] - 16:59:00 [facility] CALCIUM, IONIZED 2020-01-04 Barnhart, [facility] - 16:04:13 [facility] BLOOD GAS, ARTERIAL 2020-01-04 Barnhart, [facility] - 16:04:13 [facility] SODIUM NA-STAT LAB 2020-01-04 Barnhart, [facility] - 16:04:13 [facility] POTASSIUM-STAT LAB 2020-01-04 Barnhart [facility] - 16:04:13 [facility] GLUCOSE-STAT LAB 2020-01-04 Barnhart [facility] - 16:04:13 [facility] HGB/HCT (H&H) - STAT LAB 2020-01-04 Barnhart, [facility] - 16:04:13 [facility] TISSUE EXAM 2020-01-[address] [facility] - 15:33:00 [facility] AFB CULTURE + SMEAR (NON-SPUTUM) 2020-01-04 Guy Bowden [facility] - 15:31:26 [facility] SURGICALLY OBTAINED CULTURE + GRAM 2020-01-[address] [facility] - STAIN 15:31:26 [facility] FUNGUS CULTURE + SMEAR 2020-01-04 Guy Bowden [facility] - 15:31:26 [facility] ANAEROBIC CULTURE 2020-01-04 [facility] - 15:31:26 [facility] CYTOLOGY 2020-01-04 MtGuy [facility] - 15:01:00 [facility] THORACOSCOPY (VATS),WEDGE 2020-01-04 Mt Guy [address] - RESECTION W/ OR W/OUT 12:50:00 [facility] nter LYMPHADENECTOMY THORACOSCOPY (VATS),PLEURODESIS 2020-01-04 Mt Guy [facility] - 12:50:00 [facility] ESOPHAGOGASTRODUODENOSCOPY (EGD) 2020-01-04 Mt Guy [facility] - 12:50:00 [facility] BRONCHOSCOPY 2020-01-04 Mt Guy [facility] - 12:50:00 [facility] XR CHEST 1 VIEW PORTABLE/BEDSIDE 2020-01-04 Maxine Alicea [facility] - 07:53:00 [facility] MAGNESIUM 2020-01-04 Cekmecelioglu, [facility] - 04:03:00 [facility] PHOSPHORUS 2020-01-04 Cekmecelioglu, [facility] - 04:03:00 [facility] CBC (HEMOGRAM ONLY) 2020-01-04 Cekmecelioglu, [facility] - 04:03:00 [facility] BASIC METABOLIC PANEL (7) 2020-01-04 Cekmecelioglu, [facility] - 04:03:00 [facility] PT/APTT 2020-01-04 Parul Carmona [facility] - 04:03:00 [facility] ABORH, MANUAL 2020-01-03 Carol Rasmussen [facility] - 22:51:00 [facility] TYPE AND SCREEN, AUTOMATED 2020-01-03 Mt Guy RUB[facility]N S [facility] - 22:36:00 [facility] XR CHEST 1 VIEW PORTABLE/BEDSIDE 2020-01-[address] [facility] - 07:04:00 [facility] MAGNESIUM 2020-01-03 Cekmecelioglu, [facility] - 04:20:00 [facility] PHOSPHORUS 2020-01-03 Cekmecelioglu, [facility] - 04:20:00 [facility] CBC (HEMOGRAM ONLY) 2020-01-03 Cekmecelioglu, [facility] - 04:20:00 [facility] BASIC METABOLIC PANEL (7) 2020-01-03 Cekmecelioglu, [facility] - 04:20:00 [facility] LIPID PANEL 2020-01-03 Amado, [facility] - 04:20:00 [facility] HEMOGLOBIN A1C 2020-01-03 Amado, [facility] - 04:20:00 [facility] TSH/FREE T4 IF INDICATED 2020-01-03 Amado, [facility] - 04:20:00 [facility] STRESS ECHO WITH CONTRAST & 2020-01-02 Archie English [facility] - TRACING 10:31:41 [facility] TREADMILL TOLERANCE(NON-NUCLEAR 2020-01-02 Unknown, Hl7 [facility] - TREADMILL) 09:13:28 [facility] XR CHEST 1 VIEW PORTABLE/BEDSIDE 2020-01-[address] [facility] - 07:07:00 [facility] MAGNESIUM 2020-01-02 Cekmecelioglu, [facility] - 04:55:00 [facility] PHOSPHORUS 2020-01-02 Cekmecelioglu, [facility] - 04:55:00 [facility] CBC (HEMOGRAM ONLY) 2020-01-02 Cekmecelioglu, [facility] - 04:55:00 [facility] BASIC METABOLIC PANEL (7) 2020-01-02 Cekmecelioglu, [facility] - 04:55:00 [facility] XR CHEST 1 VIEW PORTABLE/BEDSIDE 2020-01-[address] [facility] - 07:01:00 [facility] SARS-COV2/RT-PCR ([facility]) 2020-01-[address] [facility] - 05:48:00 [facility] MAGNESIUM 2020-01-01 Cekmecelioglu, [facility] - 04:20:00 [facility] PHOSPHORUS 2020-01-01 Cekmecelioglu, [facility] - 04:20:00 [facility] CBC (HEMOGRAM ONLY) 2020-01-01 Cekmecelioglu, [facility] - 04:20:00 [facility] BASIC METABOLIC PANEL (7) 2020-01-01 Cekmecelioglu, [facility] - 04:20:00 [facility] CT/CTA CAROTID 2020-01-[address] [facility] - 01:13:00 [facility] CTA BRAIN 2020-01-[address] [facility] - 01:13:00 [facility] TROPONIN I 2019-12-31 Cekmecelioglu, [facility] - 13:43:00 [facility] B-TYPE NATRIURETIC FACTOR (BNP) 2019-12-31 Cekmecelioglu, [facility] - 13:43:00 [facility] XR CHEST 1 VIEW PORTABLE/BEDSIDE 2019-12-[address] [facility] - 07:22:00 [facility] MAGNESIUM 2019-12-31 Cekmecelioglu, [facility] - 05:27:00 [facility] PHOSPHORUS 2019-12-31 Cekmecelioglu, [facility] - 05:27:00 [facility] CBC (HEMOGRAM ONLY) 2019-12-31 Cekmecelioglu, [facility] - 05:27:00 [facility] BASIC METABOLIC PANEL (7) 2019-12-31 Cekmecelioglu, [facility] - 05:27:00 [facility] HC CAROTID DOPPLER EVERT 2019-12-30 Cekmecelioglu, [facility] - 19:35:00 [facility] 2D ECHO W/ DOPPLER (CW/PW/COLOR) 2019-12-[address] [facility] - 16:25:[address] [facility] [address] ABDOMEN/PELVIS WITH IV CONTRAST 2019-12-[address] [facility] - 10:37:[address] [facility] [address] CHEST WITH IV CONTRAST 2019-12-30 Deanne, Maxine [facility] - 10:37:00 [facility] ECG 12-LEAD 2019-12-30 Unknown, Hl7 [facility] - 07:16:51 [facility] ECG 12-LEAD 2019-12-30 Deanne, Maxine [facility] - 06:47:02 [facility] ECG 12-LEAD 2019-12-30 Unknown, Hl7 [facility] - 05:23:09 [facility] CBC W/PLT COUNT & AUTO 2019-12-[address] [facility] - DIFFERENTIAL 01:56:00 [facility] MAGNESIUM 2019-12-[address] [facility] - 01:56:00 [facility] PHOSPHORUS 2019-12-[address] [facility] - 01:56:00 [facility] BASIC METABOLIC PANEL (7) 2019-12-[address] [facility] - 01:56:00 [facility] B-TYPE NATRIURETIC FACTOR (BNP) 2019-12-[address] [facility] - 01:56:00 [facility] TROPONIN I 2019-12-30 Maxine Alicea [facility] - 01:56:00 [facility] CREATINE KINASE (CK) 2019-12-[address] - 01:56:00 [facility] XR CHEST 1 VIEW PORTABLE/BEDSIDE 2019-12-[address] [facility] - 01:06:00 [facility] CVRAD - Bilateral Carotid Duplex - 2019-11-23 [facility] [id number] 00:00:00 [place] [facility] [N] 2D Echo complete, with Doppler 2019-11-07 [place] [id number] 00:00:00 [place] [facility] History of Aortic aneurysm repair [facility] Physicians Plan of Care Planned Activity Planned Date Details Comments Source Future Scheduled 2020-02-[address] [facility] - Test 00:00:00 WELLNESS (YEAR 2 or Medical Center FIRST YEAR if no IPPE) [code = MEDICARE ANNUAL WELLNESS (YEAR 2 or FIRST YEAR if no IPPE)] Future Scheduled 2020-02-[address] [facility] - Test 00:00:00 (12+) [code = [facility] DEPRESSION SCREENING (12+)] Future Scheduled 2019-12-04 [N] [facility] with [facility] [id number] Physician s [code = [N] 2D Echo complete, with Doppler [id number]] Future Scheduled 2019-10-[address] [facility] - Test 00:00:00 (#1) [code = [facility] INFLUENZA VACCINE (#1)] Future Scheduled 2017-10-25 DTAP/TDAP/TD VACCINES [facility] Test 00:00:00 (2 - Td) [code = Medical [address] [facility] DTAP/TDAP/TD VACCINES (2 - Td)] Future Scheduled 2012-11-11 PNEUMOCOCCAL 65+ YRS [facility] - Test 00:00:00 (1 of 1 - Medical Center [id number] PCV13) [code = PNEUMOCOCCAL 65+ YRS (1 of 1 - [id number] PCV13)] Future Scheduled 1965-11-11 HEPATITIS C SCREENING [facility] Test 00:00:00 [code = HEPATITIS C Medical Center SCREENING] Future Scheduled [address] [facility] - Test 00:00:00 malignant neoplasm of Medica Center colon (procedure) [code = 879320075] Encounters Start End Encounter Admission Attending Care Care Encounter Source Date/Time Date/Time Type Type Clinicians Facility Department ID 2019-04-24 Outpatient [facility] [id number] [facility] 14:10:19 2020-01-24 2020-01-24 Office ELMER Bowden [id number] 11:29:45 13:24:37 Visit Guy AMBULATOR [id number] Lakeshia Dunn [id number] 2019-11-23 2019-11-23 AppointMUSA Chong [facility] [id number] Univers 08:45:00 08:45:00 t; monae MA & Delfino M.D. Vascular Carri MA, Surgery - Physic i Cait [facility] 2019-10-19 2019-10-19 Appointmen RUBÉN JIANG [facility] [id number] Univers 10:00:00 10:00:00 t; Cait JIANG [place] M.D. [facility] 2019-10-19 2019-10-19 Outpatient [facility] [id number] [facility] 09:41:00 09:41:00 2019-09-07 2019-09-07 AppointRUBÉN Honeycutt [facility] [id number] Univers 14:10:00 14:10:00 t; Cait JIANG [facility] PRIETO M.D. [facility] 2019-08-21 2019-08-21 AppointGALLO Calloway, UTP [facility]TP [id number] Univers 09:15:00 09:15:00 t; Cait PATRICK ity of Cait HOLDER [place] [facility] 2019-08-14 2019-08-14 Appointmen GALLO PATRICK, UTP [facility] [id number] Univers 09:30:00 09:30:00 t; Cait PATRICK ity of Cait [facility]OL[facility] [place] [facility] 2019-08-10 2019-08-10 Outpatient [facility] [id number] [facility] 13:06:00 13:06:00 2019-08-10 2019-08-10 Appointmen RUBÉN JIANG, [facility] UTP [id number] Univers 12:45:00 12:45:00 t; [facility] 2019-07-20 2019-07-20 Appointmen GALLO PATRICK, MUSA [facility] [id number] Univers 09:30:00 09:30:00 t; aCit PATRICK yngology - i ty of Cait HOLDER [facility] ans 2019-07-13 2019-07-13 Appointmen APOLINAR GIOVANACONNER, [facility] UTP [id number] Univers 15:00:00 15:00:00 t; Cait JIANG [facility] 2019-07-06 2019-07-06 Appointmen RUBÉN JIANG, UTP UTP [id number] Univers 14:00:00 14:00:00 t; Cait JIANG of [facility] 2019-07-06 2019-07-06 Outpatient [facility] [id number] [facility] 13:37:00 13:37:00 2019-06-08 2019-06-08 Appointmen RUBÉN JIANG, [facility] UTP [id number] Univers 10:35:00 10:35:00 t; Cait JIANG of [facility] 2019-05-17 2019-05-17 Appointmen RADIOLOGY, [facility] UTP [id number] Univers 10:30:00 10:30:00 t; PROVIDER it y of RADIOLOGY, [place] [facility] PROVIDER ans 2019-05-11 2019-05-11 Appointmen RUBÉN JIANG UTP UTP [id number] Univers 12:00:00 12:00:00 t; Cait JIANG of [place] M.D. Physici ans 2019-05-11 2019-05-11 Outpatient [facility] M[facility] [id number] MHHH 11:50:00 11:50:00 2019-05-04 2019-05-04 Appointmen RADIOLOGY, [facility] [employer] [id number] Univers 10:00:00 10:00:00 t; PROVIDER laila it y of RADIOLOGY, Radiology - T linsey QUESADA [facility] 2019-05-01 2019-05-01 Appointmen RADIOLOGY, [facility] [employer] [id number] Univers 09:30:00 09:30:00 t; PROVIDER laila it y of RADIOLOGY, Radiology - T linsey QUESADA [facility] 2019-04-28 2019-04-28 Appointmen RADIOLOGY, [facility] [employer] [id number] Univers 09:30:00 09:30:00 t; PROVIDER laila it y of RADIOLOGY, Radiology - T linsey QUESADA [facility] 2019-04-20 2019-04-20 Appointmen RUBÉN JIANG, [facility] UTP [id number] Univers 14:20:00 14:20:00 t; Cait JIANG of [place] [facility] 2019-03-30 2019-03-30 Outpatient M[facility] MHHH [id number] MHHH 12:12:00 12:12:00 2019-02-27 2019-02-27 Appointmen GALLO PATRICK [facility] UTP [id number] Univers 09:30:00 09:30:00 t; Cait PATRICK M.D. [place] [facility] ans 2019-02-21 2019-02-21 Outpatient MHHH MHHH [id number] MHHH 07:20:00 07:20:00 2019-02-17 2019-02-17 Outpatient MHHH MHHH [id number] MHHH 08:56:00 08:56:00 2019-02-01 2019-02-01 Appointmen RUBÉN JIANG, [facility] UTP [id number] Univers 10:30:00 10:30:00 t; Cait JIANG of [facility] Physic ans 2019-01-30 2019-01-30 Appointmen GALLO PATRICK, MUSA Otorhinolar [id number] Univers 10:15:00 10:15:00 t; Cait PATRICK yngology - i ty of Cait HOLDER [facility] Physici [facility] 2019-01-20 2019-01-20 Outpatient [facility] [id number] [facility] 12:12:00 12:12:00 2019-01-05 2019-01-05 Appointmen RUBÉN JIANG, UTP UTP [phone] Univers 14:30:00 14:30:00 t; Cait JIANG of [facility] ans 2018-12-21 2018-12-21 Appointmen APOLINAR GIOVANACONNER, UTP UTP [id number] Univers 10:30:00 10:30:00 t; Cait JIANG of [facility] ans 2018-12-19 2018-12-19 Appointmen AMIE, MUSA UTP [id number] Univers 14:30:00 14:30:00 t; RENA HOLLOWAY ity of Cait [facility] ans 2018-12-07 2018-12-07 Outpatient [facility] [id number] [facility] 11:06:00 11:06:00 2018-12-07 2018-12-07 Appointmen APOLINAR GIOVANACONNER, UTP UTP [id number] Univers 10:30:00 10:30:00 t; Cait JIANG of [facility] Physici ans 2018-11-23 2018-11-23 Appointmen APOLINAR GIOVANACONNER, UTP UTP [id number] Univers 10:30:00 10:30:00 t; Cait JIANG of [facility] Physic ans 2018-11-07 2018-11-07 Appointmen RUBÉN JIANG, UTP UTP [id number] Univers 12:00:00 12:00:00 t; Cait JIANG of [facility] Physici ans 2018-10-24 2018-10-24 Appointmen APOLINARRUBÉN, [facility] UTP [id number] Univers 11:30:00 11:30:00 t; Cait JIANG of [facility] Physic ans 2018-10-09 2018-10-09 Emergency E MHHH MHHH [id number] MHHH 17:50:00 17:50:00 2018-10-05 2018-10-05 Appointmen APOLINARRUBÉN, [facility] UTP [id number] Univers 13:45:00 13:45:00 t; Cait JIANG of [facility] Physici ans 2018-10-05 2018-10-05 [id number] 09:29:00 09:29:00 2018-09-28 2018-09-28 Appointmen APOLINARRUBÉN, [facility] UTP [id number] Univers 10:40:00 10:40:00 t; Cait JIANG of [facility] Physici ans 2018-09-26 2018-09-26 [id number] [facility]HH 15:22:00 15:22:00 2018-09-21 2018-09-21 Appointmen APOLINARRUBÉN, [facility] UTP [id number] Univers 10:00:00 10:00:00 t; [facility]ait [facility]ANG [facility] ans 2018-09-14 2018-09-14 Appointmen APOLINARRUBÉN, [facility] UTP [id number] Univers 09:30:00 09:30:00 t; [facility] 2018-09-07 2018-09-07 Appointmen APOLINARRUBÉN, UTP UTP [id number] Univers 14:00:00 14:00:00 t; Cait JIANG of [facility] ans 2018-08-31 2018-08-31 [id number] 13:14:00 13:14:00 2018-08-31 2018-08-31 Appointmen APOLINARRUBÉN, [facility] UTP [id number] Univers 11:30:00 11:30:00 t; Cait JIANG of [facility]ici ans 2018-08-25 2018-08-25 Outpatient MHHH MHHH [id number] MHHH 11:08:00 11:08:00 2018-08-17 2018-08-17 Appointmen APOLINARRUBÉN, [facility] UTP [id number] Univers 10:45:00 10:45:00 t; [facility]ait [facility]ANG [facility] 2018-08-04 2018-08-04 Appointmen APOLINARRUBÉN, [facility] UTP [id number] Univers 09:45:00 09:45:00 t; [facility]ait [facility] 2018-07-21 2018-07-21 Appointmen APOLINARRUBÉN, [facility] UTP [id number] Univers 10:30:00 10:30:00 t; Cait JIANG of [facility] Physici ans 2018-07-21 2018-07-21 Outpatient MHHH MHHH [id number] MHHH 08:38:00 08:38:00 2018-07-07 2018-07-07 Appointmen APOLINARRUBÉN, [facility] UTP [id number] Univers 16:00:00 16:00:00 t; Cait JIANG [facility] ans 2018-07-07 2018-07-07 Appointmen GALLO PATRICK, [facility] UTP [id number] Univers 09:30:00 09:30:00 t; Cait PATRICK Cait HOLDER [place] Physici ans 2018-06-29 2018-06-29 Appointmen APOLINARRUBÉN, [facility] UTP [id number] Univers 13:30:00 13:30:00 t; Cait JIANG [facility] ans 2018-06-29 2018-06-29 Outpatient MHHH MHHH [id number] MHHH 07:53:00 07:53:00 2018-06-23 2018-06-23 Outpatient MHHH MHHH [id number] MHHH 10:47:00 10:47:00 2018-06-20 2018-06-20 Outpatient MHHH MHHH [id number] MHHH 12:49:00 12:49:00 2018-06-20 2018-06-20 Appointmen RUBÉN JIANG, [facility] UTP [id number] Univers 12:00:00 12:00:00 t; Cait JIANG [place] M.D. [facility] 2018-06-16 2018-06-16 Appointmen GALLO PATRICK, MUSA UTP [id number] Univers 10:15:00 10:15:00 t; Cait PATRICK M.D. [facility] 2018-06-08 2018-06-08 Outpatient MHHH MHHH [id number] [facility] 10:37:00 10:37:00 2018-06-06 2018-06-06 Appointmen GALLO PATRICK, MUSA UTP [id number] Univers 14:15:00 14:15:00 t; Cait PATRICK M.D. [facility] 2018-05-31 2018-05-31 Outpatient MHSE MHSE [id number] MH 07:40:00 07:40:00 [facility] 2018-05-27 2018-05-27 Appointmen MUSA GARZON UTP [id number] Univers 11:00:00 11:00:00 t; Delfino MA M.D. [place] A[place] MA M.D. [facility] Results Test Description Test Time Test Comments Results Result Comments Source AFB CULTURE + SMEAR (NON-SPUTUM) 2020-02-20 09:16:00 Test Item Value Reference Range Interpretation Comme nts Result (test code = 6463-4) No acid-fast bacilli isolated in 42 day s AFB Smear (test code = 57999-0) No acid fast bacilli seen [facility]2020-02-20 09:16:00 Test Item Value Reference Range Interpretation Comments CULTURE (BEAKER) (test No acid-fast bacilli code = 1095) isolated in 42 days AFB SMEAR (BEAKER) No acid fast bacilli (test code = 994) seen Fungus culture + [id number] 16:27:00 Test Item Value Reference Range Interpretation Comments Result (test code = No fungus isolated in 6463-4) 28 days Fungus Smear (test No fungal elements seen code = 1406) [facility] + [id number] 16:27:00 Test Item Value Reference Range Interpretation Comments CULTURE (BEAKER) (test No fungus isolated in code = 1095) 28 days FUNGUS SMEAR (BEAKER) No fungal elements seen (test code = 1406) RAD, CHEST, 2 [id number] 13:10:00Reason for Exam:->[facility] state [facility] 1945 Sex: MFINAL REPORT CHEST RADIOGRAPH - 2 VIEWS INDICATION: Shortness of sudarshan th COMPARISON: Chest x-ray 01/10/2020 FINDINGS:LINES: None LUNGS: Scattered lung scarring, right greater than left. Biapical bullous change. Mild right lung volume loss. No discrete lung mass or focal consolidation. PLEURA: Questionable small residual right pneumothorax versus apical bullous change. No left pneumothorax. No large pleural effusion. HEART AND MEDIASTINUM: The cardiomediastinal silhouette is unremarkable. BONES: No acute osseous abnormality. UPPER ABDOMEN: No evidence of free intraperitoneal air. Interval resolution of right chest wall emphysema. IMPRESSION: Questionable small persi stent right pneumothorax versus right apical bullous change. No radiographic evidence of tension. Signed: Fermin Villavicencio MDReport Verified Date/Time: 01/24/2020 13:10:38 Reading Location: [facility] Reading Room [address] [place] [address] XR Chest 2 [id number] 13:10:00Interface, External Ris In - 01/24/2020 1:12 PM CSTFINAL REPORT CHEST RADIOGRAPH - 2 VIEWS INDICATION: Shortness of breath COMPARISON: Chest x-ray 01/10/2020 FINDINGS:LINES: None LUNGS: Scattered lung scarring, right greater than left. Biapical bullous change. Mild right lung volume loss. No discrete lung mass or focal consolidation. PLEURA: Questionable small residual right pneumothorax versus apical bullous change. No left pneumothorax. No large pleural effusion. HEART ANDMEDIASTINUM: The cardiomediastinal silhouette is unremarkable. BONES: No acute osseous abnormality. UPPER ABDOMEN: No evidence of free intraperitoneal air. Interval resolution of right chest wall emphysema. IMPRESSION: Questionable small persistent right pneumothorax versus right apical bullous change. No radiographic evidence of tension. Signed: Fermin Villavicencio MDReport Verified Date/Time: 01/24/2020 13:10:38 Reading Location: [facility] Reading Room [address] [place] [address] [facility] Center[facility] tolerance(Non-Nuclear Treadmill) 2020-01-21 17:18:49Interface, External Ris In - 01/21/2020 5:18 PM CSTProtocol Name DOBUT TM-1 Time In Exercise Phase 00:18:10 Max. Systolic BP 156 mmHgMax Diastolic BP 52 mmHgMax Heart Rate 151 BPMMax Predicted Heart Rate 148 BPMReason For Termination Target Heart Rate Achieved Reason for Test Cardiac Surgical Clearance Target HR Formula (220 - Age)*100% Arrhythmias none Resting ECG Normal sinus rhythm ST Changes >1mm Overall Impression Equivocal stress ECG Chest Pain none HR Response To Exercise BP Response To Exercise APPROPRIATE RESPONSE LISINOPRILmetoprololConfirmed by MD FIELDS RAYMOND ([id number]) on 01/21/2020 5:18:38 [facility] CenterTissue [id number] 09:45:00 Test Item Value Reference Range Interpretation Comments Case Report (test code Surgical Pathology = 104) Report Case: [id number] Authorizing Provider: Guy Bowden Jr., Collected: 01/04/2020 03:33 PM Ordering Location: [facility] Received: 01/05/2020 09:59 AM PERIOPERATIVE SERVICES Pathologist: Denys Oglesby MD Specimens: A) - Lung, Right Upper Lobe, WEDGE from RIGHT UPPER LOBE B) - Pleural, Right, RIGHT PLEURAL TISSUE DIAGNOSIS (test code = s4ilyTFeJXPan7brJZPptKJ 3220) uZzEwMzNcZnRuYmpcdWMxIH tccnRmMVxlcGljOTIwMFxhb lSoTTXwdPUhN4YvgxzbGZqi FE3cOL5olLgwzOUmdHGnRCW hCaSbd1jba546gETkl8itFA ZLmlhxbTj9oIvqP27xu1L1E qzgZ08alLTfXZiasJBoazfh erHdLZFqGYhGKkpjUABID8b QHKHCGVUNDIvFGvFaA5GOY7 HoYYBYR7JHEMtZCttjtQTdE EKYRxbJYrAWUBlLY10KIzwr DMSBRW0NUUcZMRUIHQQPLZF KCKxPH0DVYCQGRGYoW7iGNa sEGl7qCNQfrlYCQKbAWUyHG RDAM4LrNUVVUCkVDM9RAWdc YXJccGFyIEIuIFBMRVVSQSw gUklHSFQgUExFVVJBTCBFWE ILF3cDNhogdYWeKTIWKLAXB VWCPMIXMIWCJqbNEU8QV7ZM GGyBPnfgAzrCIuxCK4MLZFF ARRWWHOIVMj6sgOFfKT9UN1 OJVGSDULXAVvHOGOcIY97OP eFRLBVfxowiPVQ3v8buuJDt XHNzdGUxODAwMFxhbnNpXGR wYnxvrsdyEGYeHGW4fpKtAT WtYWsvJOVaNOztDi1szTZxx RmsUwUhXBTxz5hsirOAnfya qEw8p8wvXMWmVmU6qGTaTQl xL4ygoaRlkMHtMHHhGLc1pC 47GRPiuK7txFSbBJhnmfZtO bE8RFcpYNGuMxZ4KMXqaTGo LXApL9sxHNEkOIkdCVQmXQz hiXZwWGC9vSrsb8U0kFQgpI HqeJahGjQqZiPbRwUEf6HjO Ca6oAwjY0YlYFOxDhS7aAKo NHQrGXitEFJyLLThxhU7gM8 5MGbrcrQ2gYZng4Xcv23tv0 84xG5spATaVXY8FHBoUVUok ZCjQACmEVP1RUCygSOzW6px DRQxJZ4kaugrZBezKJtfOTW utYX5LBRmfRMdB6FqSMXtEL kiLUPcsbf6AfOaLp5utHPej QzdELabn0bur3rayBQkAbt2 XUObYvTmFavgNKied2Slx9b uVWJfmv6gLKB2iDQdvPsxv8 I9gGVaQHUfuKLvRYTlGD5fb BYjHQIrxD1mlosoTAUkAjVg dlreWVPzdJopojYjSg2rjHj rCLP1IUcoT0zdyF1mPcZ0MR aqZ8tvnI7jWVa0GIzuZAZov AE2jhB0YDDrnDRdQ4BtlV4x TUNjUG0kodk8r4xqLDS0LXl sLYQyOzT1ziX4CWRahGRwFD AvsFyfYHzsy690MZQ7WzNoG NGai7UaN4EydVomZ57naSjf P15qNGTciOporA7pvDzieR5 uAyPbNhPiQSgyxZcaXT4oNB YdL5jouOGdNTYnTRRgG7qdD cTihW8ayOxcFArxynSpKMZk Xmt7MCKyfZVfKYBnWpi3GEA bTIRdZ51gejuzLTI8gV8vt4 ljq9LgFJxaMAY5JHJil58vK LnvxgR7JQblBk2xRZMdCsy3 E6opGTA2zI== CPT Code(s) (test code d5nsrSHnHCTanTO5JqSwGUP = 3357) ce1nmz2MulUBwrDPdNPsekN IccdHqvc04iTQ6qR12SH2nS BZzBdY9GDGfkyO5Oox6DHHd GHMvyAVpN941n0ndx6mxmzQ iqSI2yMopKFWsKQNbPKngJJ RuBdAhSZraZSwnCAg7LnO2W HBhcn0= CLINICAL HISTORY (test b0ncrEIlMVPvzNI6OqXlAWE code = 3356) yj5aer3UpzORtpFWpBHrfxL NckyGxxp80eYP1mI56GR0nO LSjIaA2SFNiboS5Xdn4HZXp NAUlzOLbQ564z8lzq8plewM siXW9pSssFROfCHTsQCspAU XdDpMcJGXkq5DrBYbyD16kr 0jcMmXbBA7fnV3tiWvhucW6 XI9yJGIkD0r1WOlnEUN9 SPECIMEN SOURCE (test b2nwpZGwWOSevJU9YfKdFDL code = 3377) wa9dxx0MogIClzFSiKHpwhK DdzkBtnq82zBJ6dT05PF9sJ CPcTqI1MOHlprX0Pjr0IMMh ACUneACmB113c4cvm2ldpuT sfHS7kVviMZDpSLCnXFpeRW YtLfLiUJ9jOCSvCxyfquslr SPjaGIqCERicG3lLYpyAk0w UGxldXJhbCwgcmlnaHRccGF yfQ== GROSS DESCRIPTION i4hnbLAeKEFpwIG4CbEoSFB (test code = 3366) cu6afq1PukYLolUAwQJqxdD ElztKbtr07tLX6cY10BM5hH JTnNiH3CLPzknJ0Ngu7MQOl NYZkpSEdI961v1fyo6tzjbH oeBB5kOswRJZhAPZtSRqhUM GqQwKuCY4dZfYpLWj1HIQct W1wYf6gbBKdzW5peKDlYVio GUQ6rLRuVLXtOTYcISPeVF4 5A6ZkcaJfIDadNVLsHFBpzB 0vNT87aDMigbZfkiThDzy2x qciRJPkZ5c9LQSdcZFzJFwf XrSpc6MtE9UjAEggRZEpWD5 2HVtaKe4sQLyaBf6eWKYoKV h4qymhj6WnY0Efb0u9vXKeP WwuFKFpeSUucP0uYWAsr7Zt cGxlIGxpbmUuIFRoZSBwbGV 1cmEgaXMgcHVycGxlLXBpbm buPPZuD0MulUkwEC35lOAeZ 655lOEtUL8mUBWac5AvDByn KXNkVY3kKOsbDS75OCCxOOR lz3I7nISxKYTyspLyXMFkMY CcvTZoXOVfJOBcecFowA7vS SAyLjUgeCAxLjMgeCAxLjAg M94uzU5tt4ppiJPlYkajRx6 oBAayUWY7THCiIHNkxG0dFZ ypSNWzmG69GWYoBC3rMMYpF VK3ieKpnks6nV7xNIGezqNd W4n3uHSbuRIonX6eMCFtAis 6UIPPRWB5zL8cuS9fZPPixx OiuFXeVDA4IJ1zppOcKHEby V7eC3chK8Z7UNI6pnGqQ7Xz sXsghSEbeRApvVZ2jkDeuVS bpEUicJP9m1RjFLHgNO0xYU 1lRu0kVSxrW0HgmDLplYOzp Z9fnpKvsmHlyUGifbRoEkcs TQ2iWeJzwjMrDK73TWSttfS wv6UsoVmiqpLpSZUjOQY7Oo 7hdZOcYYYxtbJNSI6DCHqej 3x5iXJ1qIZjuT5et8nzqZJo MmyiPnShyaXAPU5WIjboKDS xdmxqVTEvJg2sIlAnHLh9WK YqqP0rJd2ukWTflI8thJByX NrbYEJ2iNSeILZaRTWzYPRq DT20Q9JfqsPzZNbyBQWhQFF dxV8qMD18wIRdohGdleMlDs EnB7o1EOPgTLNtMWyuyWvix 7MkGvCrtxAzBCpnSVY9TNcr EPB5BFZwLGPviVUdB0tjRCj ptPVsc4AplWSzYTGoofnnKx tdpl9zEW9esaUmt7EjFVLui 1Y8DGO2hVSgTCR2dOGchYZx PZaznZlazcAkNZcle6RdHMV gp5H6GK8sE9DekZccurexWj ByZXZlYWxzIGEgdGFuLCBma GOnr1JrOSL8hOKsjMIuGNRr AyENDPByLYDrhlPxkQp4CFM pIWJ7pL5uvzUplhKkc1IauH f9pYTxTRhhYOGsMBP6PaUpK EEvcGwgXHBhcn0= MICROSCOPIC p4gyyRNuMBByiUZ2MhHmGPY DESCRIPTION (test code zn1xbx8KayTOisTEdPPdtvZ = 3371) UkmqRlhn69tRI6yM66HK1lM JZjFjB4IIYxpeQ1Szo2ZBWv HQGriZEhG586j0ugm0tpmbR moDC5iMrzSFFrLEWqCZbmHY PuQgFuYJJzQq2unXFeJYQgj n0= Gross assessment was [facility] performed at ([facility], code = 2777) Department of Pathology, [address] [place] [address] [id number], Technical component [facility] was performed at ([facility], code = 2778) Department of Pathology, [address] [place] [address] 93168, Professional component [facility] was performed at ([facility], code = 2779) Department of Pathology, [address] [place] [address] 30061, [facility] [id number] 09:45:00Surgical Pathology Report Case: [id number] Authorizing Provider: Guy Bowden Jr., Collected: 01/04/2020 03:33 PM OrderingLocation: [facility] Received: 01/05/2020 09:59 AM PERIOPERATIVE SERVICES Pathologist: Denys Oglesby MD Specimens: A) -Lung, Right Upper Lobe, WEDGE from RIGHT UPPER LOBE B) - Pleural, Right, RIGHT PLEURAL TISSUE A. LUNG, RIGHT UPPER LOBE WEDGE, RESECTION:BENIGN PULMONARY PARENCHYMA WITH EMPHYSEMATOUS CHANGES. NEGATIVE FOR MALIGNANCYB.PLEURA, RIGHT PLEURAL EXCISION:ACUTE AND CHRONIC ORGANIZING FIBRINOUS PLEURITIS.NEGATIVE FOR MALIGNANCY Signing Pathologist Direct Phone Line: [phone] signed by Denys Oglesby MD on 01/15/2020 at 9:45 [id number], [id number] diagnosis: Pneumothorax on right A. Lung, right upper lobe; B. Pleural, rightA. Received in formalin labeled with the patient's name, accession number and "lung, right upper lobe wedge" is a 8.5 x 3.0 x 2.0 cm lung wedge with a 8.5 cm linear stapleline. The pleura is purple-pink, focally anthracotic and displays a 1.2 x 1.4 cm disrupted area thatis adjacent to a 2.5 x 1.3 x 1.0 cm possible bleb. The staple line is removed and the underlying pare nchyma is inked blue Sectioning reveals a ch-red, spongy cut surface that displays emphysematous change. No discrete lesions are identified. Fruit [employer]er sections are submitted in A1-A4, with the possible bleb in A1-A2, B. Received in formalin labeled with the patient's name, accession number and "r ight pleural tissue" is a 9.0 x 8.5 x 2.0 cm aggregate of ch-pink fibromembranous tissue with attached yellow adipose tissue. Sectioning reveals a ch, fibrous cut surface. Fruit Buyer sections aresubmitted in B1-B4. PA/pl [facility]formedB[facility], Department of Pathology, [address] [place] [address] 13684, [facility], Department of Pathology, [address] [place] [address] 38349, [facility], [address] [place] [address] 34422, TFI, CHEST, 1 VIEW, NON DEPT 2020-01-10 13:32:00Reason for exam:->CT [facility] 1945 Sex: MFINAL REPORT RAD, CHEST, 1 VIEW, NON DEPT INDICATION: CT removal COMPARISON: 8 hours prior FINDINGS: Portable frontal view of the chest. IMPRESSION: Support Lines: Right thoracostomy tube has been removed. Lungs and pleura: Trace residual right apical pneumothorax. Increasing pleural capping and pleural effusion. Left lung is clear.Heart and mediastinum: Stable contours.Add itional findings: None. Signed: JR Burch Robert MDReport Verified Date/Time: 01/10/2020 13:32:22 Reading Location: [facility] Radiology Reading Room XR chest 1 view portable / [id number] 13:32:00Interface, External Ris In - 01/10/2020 1:34 PM CSTFINAL REPORT RAD, CHEST, 1 VIEW, NON DEPT INDICATION: CT removal COMPARISON: 8 hours prior FINDINGS: Portable frontal view of the chest. IMPRESSION: Support Lines: Right thoracostomy tube has been removed. Lungs and pleura: Trace residual right apical pneumothorax. Increasing pleural capping and pleural effusion. Left lung is clear.Heart and mediastinum: Stable contours.Additional findings: None. Signed: JR Burch Robert MDReport Verified Date/Time: 01/10/2020 13:32:22 Reading Location: [facility] Rad[facility] Reading [facility], NON [id number] 07:03:00Reason for exam:->postop f/uShould this be performed at the bedside?->Yes [facility] : 1945 Sex: MFINAL REPORT RAD, CHEST, 1 VIEW, NON DEPT INDICATION: postop f/u COMPARISON: Prior day's exam FINDINGS: Portable frontal view of the chest. IMPRESSION: Support Lines: Stable. Lungs and pleura: No new consolidation. Small right effusion. Stable trace right apical pneumothorax.Heart and mediastinum: Stable contours. Additional findings: Subcutaneous emphysema over the right hemithorax is improving. Signed: JR Burch Robert MDReport Verified Date/Time: 01/10/2020 07:03:37 Reading Location: [facility] Radiology Reading Room RAD, CHEST, 1 VIEW, NON [id number] 01:14:00Reason for exam:->clamped chest tube [facility] : 1945 Sex: MFINAL REPORT RAD, CHEST, 1 VIEW, NON DEPT INDICATION: clamped chest tube COMPARISON: Prior day's exam FINDINGS: Portable frontal view of the chest. IMPRESSION: Support Lines: Stable. Lungs and pleura: Postsurgical changes of the right upper lobe. Unchanged airspace opacities bilaterally.. Small right pleural effusion. Trace right apical pneumothorax appears increased in size in the interval.Heart and mediastinum: Stable contours. Additional findings: Subcutaneous emphysema over the right lateral chest wall.. Signed: Leila Torres Verified Date/Time: 01/10/2020 01:14:29 [facility] 2020-01-09 20:02:00 Test Item Value Reference Range Interpretation Comments Result (test code = No anaerobes isolated 6463-4) [facility] [id number] 20:02:00 Test Item Value Reference Range Interpretation Comments CULTURE (BEAKER) (test No anaerobes isolated code = 1095) RAD, CHEST, 1 VIEW, NON [id number] 07:42:00Reason for exam:->postop f/uShould this be performed at the bedside?->Yes [facility] [place] [facility] : 1945 Sex: MFINAL REPORT RAD, CHEST, 1 VIEW, NON DEPT INDICATION: postop f/u COMPARISON: Prior day's exam FINDINGS: Portable frontal view of the chest. IMPRESSION: Support Lines: More lateral right thoracostomy tube has been removed. Lungs and pleura: No new consolidation. Trace residual right apical pneumothorax.Heart and mediastinum: Stable contours. Additional findings: None. Signed: JR Burch Robert MDReport Verified Date/Time: 01/09/2020 07:42:02 Reading Location: [address] Consult Reading Room SARS-CoV2/RT-PCR (Asymptomatic ONLY)2020-01-09 01:23:00 Test Item Value Reference Range Interpretation Comments SARS-COV2/RT-PCR Negative Not Detected, (test code = Negative, See 08298-8) external report for linked test [facility]OV-[address] [facility] (test code = 00037-9) ANNELIESE (test code = Negative result for this ANNELIESE) test determines that SARS-CoV-2 RNA was not present in the specimen above the Limit of Detection (LOD). However, Negative results do not preclude SARS-CoV-2 infection and should not be used as the sole basis for treatment or patient management decisions. Negative results must be combined with clinical observations, patient history, and epidemiological information. A false negative result may occur if a specimen is improperly collected, transported or handled. A false negative result should be considered if patient's recent exposures or clinical presentation indicate that COVID-19 (SARS-CoV-2) is likely and diagnostic tests for other causes of illness are negative. Re-testing should be considered in cases of suspected false negatives. The limit of detection for this assay is 100 copies/mL. This SARS CoV-2 test is a real-time RT-PCR test intended for the qualitative detection of nucleic acid from SARS-CoV-2 in a nasopharyngeal swab specimen collected from individuals suspected of COVID-19 by their healthcare provider. This test has not been Food and Drug Administration (FDA) cleared or approved. This is a modified version of an approved Emergency Use Authorization (EUA) and is in the process of review by the FDA. Once authorized by the FDA, the issued EUA will be effective until the declaration that circumstances exist justifying the authorization of the emergency use of in vitro diagnostic tests for detection and/or diagnosis of COVID-19 is terminated under Section 564(b)(2) of the Act or the EUA is revoked under Section 564(g) of the Act. Testing was performed using the [employer] SARS-CoV-2 assay. Fact Sheet for Healthcare Providers:https://www.[facility]/anahi/RT_SA YY-XhM-4_JVW_Jote_Ttxlw_ 51-464856.pdf Fact Sheet for Healthcare Patients:https://www.[employer]/anahi/RT_SAR W-CkZ-[email or web address]_Hbtudfm_Zwvo_Hvp et_EN_51-686164M5.pdf Performing Laboratory:[id number] [place], [place] [address]ARS-COV2/RT-PCR ([facility])2020-01-09 01:23:00 Test Item Value Reference Range Interpretation Comments SARS-COV2/RT-PCR (test Negative Not Detected, Negative, code = 6539407) See external report for linked test SARS-COV-2 PERFORMING LAB [facility] (test code = 7427399) Negative result for this test determines that SARS-CoV-2 RNA was not present in the specimen above the Limit of Detection (LOD). However, Negative results do not preclude SARS-CoV-2 infection and should not be used as the sole basis for treatment or patient management decisions. Negative results mustbe combined with clinical observations, patient history, and epidemiological information. A false negative result may occur if a specimen is improperly collected, transported or handled. A false negative result should be considered if patient's recent exposures or clinical presentation indicate that COVID-19 (SARS-CoV-2) is likely and diagnostic tests for other causes of illness are negative. Re-testing should be considered in cases of suspected false negatives.The limit of detection for this assay is 100 copies/mL.This SARS CoV-2 test is a real-time RT-PCR test intended for the qualitative detection of nucleic acid from SARS-CoV-2 in a nasopharyngeal swab specimen collected from individuals susp ected of COVID-19 by their healthcare provider.This test has not been Food and Drug Administration (FDA) cleared or approved. This is a modified version of an approved Emergency Use Authorization (EUA) and is in the process of review by the FDA. Once authorized by the FDA, the issued EUA will be effective until the declaration that circumstances exist justifying the authorization of the emergency use of in vitro diagnostic tests for detection and/or diagnosis of COVID-19 is terminated under Section 564(b)(2) of the Act or the EUA is revoked under Section 564(g) of the Act.Testing was performed using the Scales SARS-CoV-2 assay.Fact Sheet for Healthcare Providers:https://www.Joognu.scales/anahi/ VI_AQRC-FaP-5_GKX_Vrpo_Zweii_93-806205.pdfFact Sheet for Healthcare Patients:https://www.Joognu.[employer] [facility] yamile/anahi/VE_CGUQ-DfJ-1_Wxrhhvk_Qdwe_Qiwzz_WR_66-988316R0.pdfPerforming Laboratory:[facility] [place] [address] RAD, CHEST, 1 VIEW, NON [id number] 12:35:00Reason for exam:->s/p ChT clamp trial, eval for increased pneumothoraxShould this be performed atthe bedside?->[facility] : 1945 Sex: MFINAL REPORT RAD, CHEST, 1 VIEW, NON DEPT INDICATION: s/p ChT clamp trial, eval for increased pneumothorax COMPARISON: Prior day's exam FINDINGS: Portable frontal view of the chest. IMPRESSION: Support Lines: Stable. Lungs and pleura: Improving right apical pneumothorax. Stable effusion. Left lung is clear.Heart and mediastinum: Stable contours. Additional findings: None. Signed: JR Burch Robert MDReport Verified Date/Time: 01/08/2020 12:35:04 Reading Location: [facility] Radiology Reading Room [id number] 07:59:00 Test Item Value Reference Range Interpretation Comments Case Report (test code Medical Cytology Report = 104) Case: [id number] Authorizing Provider: Guy Bowden Jr., Collected: 01/04/2020 03:01 PM Ordering Location: [facility] Received: 01/05/2020 09:34 AM PERIOPERATIVE SERVICES Pathologist: Tru Fitzgerald MD Specimen: Pleural, Right DIAGNOSIS (test code = k0mngVWyAKJvzJB8HyVxXEP 3220) xy7yui4WxdACydCEwTNfkwX DzzfBizk49mHS0iX10NH8yE ATuDjC1SRRydkH8Zki0WQUx ZURkwOMgS027r8sxi5fjbeS pgLJ1zQniMMGrETFqUNwwWW ZzMjAgUExFVVJBTCwgUklHS QNlVPFCBAcKMZoDVNEBK9EG AmQwDM0JEYFAZJmuPqrHG8o pOlxwYXIgICAtIFBSRURPTU jGGF5RPBgiKMKJVMOgWT4BL UKAWWQEEP0ZWPYUNQACPpRp gMZgUZSpFY9oXjCOWAUJQvK hYx1HTH2KTBhJAlCRX1tsUB QrfafsqwZtNGUoKpx8YQHtm XXyJQJxObd8UGOsLMXnX74t tvqfAZN5vC2gl9mfw8FqWVl xVBE5DDKzk90xZYnolrJ1LA jwXr0oTFWjDqq0FwbgXSF2 CPT Code(s) (test code i2jzhYQwLLGtmPO0KqYyQVL = 3357) lt7mvg3PgeZMyvCOgGBxlmH DbxaHyjx22bBM1jO70TO5yP HWnIpG9GFPyxsF6Vjs6DYZk LEUynOGnV348c7ejw2cgnlX cyFZ1rPpzRRQrTSPoTAhqGF RqLrVfEWfiGCwdVGd1IbX8N HBhcn0= CLINICAL DATA (test y7insGVeSVYjuOX5LrUxUVW code = 3355) ya4csn5EkfABqfJJcCHuwpL FcviZbrq72rIO1iN08BU6lE SFsCfK2PRSmxpI9Faw9ZLIi NQGtpLCrS219a1omb8xchpU iiUL0cUlvEFDxGDFpBLorTX ZzMjAgUmlnaHQgcGxldXJhb DPwBjC3s2wurfpvmqSnpXNt RK10UDXvBQFkj3Wzf2FvpXm rM68GZAqhSFLysWweX1KlnZ GbKU1wHIYtth6wBBBgKtnof THhyrTkH7ikpU4eRGTef3Xj ZXJhcHlccGFyfQ== SPECIMEN SOURCE (test e2duzJSzYHSayCM2CgIcRPQ code = 3377) ec8wcp7SauQApkJZwMIfxmI WjtrDilw06qZW6cB87TQ9jE CMqEyK4QTJzkkC9Enn2GUHr NHEvuFXoC085b5zzv6gzwpN hvHP6vLlpJHPjBKMgPYcgWO ZzMjAgUExFVVJBTCwgUklHS FQsIEZMVUlEIFxwYXJ9 GROSS DESCRIPTION c1ohqIXlSHXotZS0DvHuPVS (test code = 3366) sl8avb0PhnWPolXWzISycvU DnocFxmj19pGS0zZ37WS7gG HYzHyC1UNXzkcM2Hnk3LHSb VVClvEXoR003q9sqb9qrdxE jnEH3zFjeGGQvVPQvAUjsOK UnJoYrPmGwOLh8UILqDCAue AglWB2sGIIcN81nc4YrCSDp yCDdAXvcjBJyxPHrGCYfZ5M fbGEpfR8lmceOWspnhBGque paK35rlF3sjD2sJZPfGfRxr bYkQXHhxQLrh2MeqpWjySYo fQ== MICROSCOPIC w8kbaJTiMDYfxVT3HzGtHVT DESCRIPTION (test code si3iib5DkhFQznSMtQJetmE = 3371) XhywRdjo69qPS3iL95AC7gH YDnTsB6ZNCueuU7Xym6EJYs VEOlpENiR967q7qfc2vuppE wpSQ4vMfmWQFhMRLgYZhpYO OeIxKrDZWbQf4eeLOyLzVaf GFyfQ== STATEMENT OF ADEQUACY Satisfactory (test code = 2757) Gross assessment was [facility] performed at ([facility], code = 2777) Department of Pathology, [address] [place] [address], Technical component [facility] ke's was performed at ([facility], code = 2778) Department of Pathology, [address] [place] [address], Professional component [facility]. [place] was performed at ([facility], code = 2779) Department of Pathology, [address] [place] [address], [facility]2020-[facility] 07:59:00Medical Cytology Report Case: [id number] Aut horizing Provider: Guy Bowden Jr., Collected: 01/04/2020 03:01 PM OrderingLocation: [facility] Received: 01/05/2020 09:34 AM PERIOPERATIVE SERVICES Pathologist: Tru Fitzgerald MD Specimen: Pleural, Right PLEURAL, RIGHT, FLUID (CYTOSPINS AND CELL BLOCK): - PREDOMINANTLY ACUTE INFLAMMATION PRESENT - NEGATIVE FOR MALIGNANCY Signing Pathologist Direct Phone Line: [phone] signed by Tru Fitzgerald MD on 01/08/2020 at 7:59 AMPreliminary result electronically signed by Tru Fitzgerald MD on 01/05/2020 at 11:22 [id number], [id number] pleural effusion; recurrent pneumothorax; COPD; esophageal cancer s/p definitive chemoradiotherapyPLEURAL, RIGHT, FLUID Received 40 ml ran-colored fluid; p repared cell block(A2) using collodion bag and 4 cytospinsPerformed. [facility], Department of [facility]ology, [address] [place] [address], [facility], [address] [place] [address], [facility], Department of [facility]ology, [address] [place] [address], UCP, CHEST, 1 VIEW, NON DEPT 2020-01-08 04:52:00Reason for exam:->postop f/uShould this be performed at the bedside?->Yes [facility] : 1945 Sex: MFINAL REPORT RAD, CHEST, 1 VIEW, NON DEPT INDICATION: postop f/u COMPARISON: Prior day's exam FINDINGS: Portable frontal view of the chest. IMPRESSION: Support Lines: Stable. Lungs and pleura: Worsening hazy airspace opacities in the left greater than right lung base may berelated to worsening atelectasis and layering pleural effusions. Increased discoid atelectasis along the right-sided chest tube. Persistent small right apical pneumothorax.Heart and mediastinum: Stablecontours. Additional findings: Subcutaneous emphysema over the right lateral chest wall. Signed: Leila Torres MDReport Verified Date/Time: 01/08/2020 04:52:14 RAD, CHEST, 1 VIEW, NON [id number] 14:22:00Reason for exam:->waterseal of chest tubes, eval for pneumothoraxShould this be performed at the bedside?->Yes [facility] 1945 Sex: MFINAL REPORT TECHNIQUE: Frontal view of the chest. INDICATION: 74-year-old man with chest tubes to waterseal. COMPARISON: Chest radiograph from earlier same date. FINDINGS: LINES/TUBES/DEVICES: Unchanged right chest tubes. LUNGS: Persistent airspace opacities in the right apex. Persistent mild interstitial opacities in both lungs. PLEURA: Slightly increased small right apical pneumothorax from 2.4 cm to 2.7 cm in maximal airgap. Unchanged questionable trace bilateral pleural effusions. HEART AND MEDIASTINUM: Cardiomediastinal silhouette is unchanged. Atherosclerotic calcifications in the thoracic aorta. BONES AND SOFT TISSUES: Bones are unchanged. Persistent air in the soft tissues of the right chest. IMPRESSION:Slightly increased small right apical pneumothorax. Otherwise, no significant change since chest radiograph from earlier same date. Signed: Zhang Agustin Verified Date/Time: 01/07/2020 14:22:33 Reading Location: [address] Consult Reading Room Surgically obtained culture + gram [id number] 12:28:00 Test Item Value Reference Range Interpretation Comments Result (test code = 6463-4) No growth Gram Stain Result (test No organisms seen code = 1123) ANNELIESE (test code = ANNELIESE) [facility] + GRAM [id number] 12:28:00 Test Item Value Reference Range Interpretation Comments CULTURE (BEAKER) (test code No growth = 1095) GRAM STAIN RESULT (BEAKER) 1+ WBCs (test code = 1123) GRAM STAIN RESULT (BEAKER) No organisms seen (test code = 920544) RAD, CHEST, 1 VIEW, NON [id number] 08:40:00Reason for exam:->postop f/uShould this be performed at the bedside?->Yes [facility] : 1945 Sex: MFINAL REPORT TECHNIQUE: Frontal view of the chest. INDICATION: 74-year-old man after surgery. COMPARISON: Chest radiograph 01/05/2020. FINDINGS: LINES/TUBES/DEVICES: Unchangedright chest tubes. LUNGS: Persistent airspace opacities in the right apex and right midlung zone. PLEURA: Slightly decreased small right apical pneumothorax. Questionable trace bilateral pleural effusions. HEART AND MEDIASTINUM: Cardiomediastinal silhouette is unchanged. Atherosclerotic calcificationsin the thoracic aorta. BONES AND SOFT TISSUES: Bones are unchanged. Persistent air in the soft tissues of the right chest. IMPRESSION:Slightly decreased small right apical pneumothorax. Otherwise, no s ignificant change since 01/05/2020. Signed: Zhang Agustin MDReport Verified Date/Time: 01/07/202008:40:45 Reading Location: [facility] C013W Consult Reading Room ECG 12 [id number] 08:21:43Interface, External Ris In - 01/06/2020 8:21 AM CSTVentricular Rate 71 BPMAtrial Rate 71 BPMP-R Interval 174 msQRS Duration 96 msQ-T Interval 422 msQTC Calculation(Bazett) 458 msP [place] 32 degreesR [place] 47 degreesT [place] 53 degreesSinus rhythm with Premature atrial complexesOtherwise normal ECGWhen compared with ECG of 30-DEC-2019 07:16,Previous ECG has undetermined rhythm, needs reviewConfirmed by MD Nazario Lucho ([id number]) on 01/06/2020 8:21:42 [facility]CB with [facility] + automated [id number] 05:01:00 Test Item Value Reference Range Interpretation Comments WBC (test code = 6690-2) 9.8 See_Comment [A utomated message] The system [employer] generated this result transmitted ref erence range: 3.5 - 10 .5 K/L. The refe rence range was not u sed to interpret this result as normal/abnor mal. RBC (test code = 789-8) 3.73 See_Comment L [Au tomated message] The system [employer] generated this result transmitted ref erence range: 4.63 - 6 .08 M/L. The refe rence range was not u sed to interpret this result as normal/abnor mal. MCHC (test code = 786-4) 32.3 See_Comment L [A utomated message] The system [employer] generated this result transmitted ref erence range: 32.3 - 3 6.5 GM/DL. The refe rence range was not u sed to interpret this result as normal/abnor mal. Hematocrit (test code = 36.8 % 40.1-51 L 4544-3) MCV (test code = 787-2) 98.7 fL 79-92.2 H MCH (test code = 785-6) 31.9 pg 25.7-32.2 RDW (test code = 788-0) 14.6 % 11.6-14.4 H Platelets (test code = 308 See_Comment [Aut omated message] 777-3) The system [employer] generated this result transmitted ref erence range: 150 - 45 0 K/CU MM. The referen ce range was not u sed to interpret this result as normal/abnor mal. MPV (test code = 8.8 fL 9.4-12.4 L 59558-6) nRBC (test code = 413) 0 See_Comment [Aut omated message] The system [employer] generated this result transmitted ref erence range: 0 - 0 /1 00 WBC. The refere nce range was not u sed to interpret this result as normal/abnor mal. % Neutros (test code = 75 % 429) % Lymphs (test code = 8 % 430) % Monos (test code = 12 % 431) % Eos (test code = 432) 5 % % Baso (test code = 437) 0 % # Neutros (test code = 7.31 See_Comment H [Aut omated message] 670) The system [employer] generated this result transmitted ref erence range: 1.78 - 5 .38 K/L. The refe rence range was not u sed to interpret this result as normal/abnor mal. # Lymphs (test code = 0.74 See_Comment L [Auto mated message] 414) The system [employer] generated this result transmitted ref erence range: 1.32 - 3 .57 K/L. The refe rence range was not u sed to interpret this result as normal/abnor mal. # Monos (test code = 1.19 See_Comment H [Autom ated message] 415) The system [employer] generated this result transmitted ref erence range: 0.30 - 0 .82 K/L. The refe rence range was not u sed to interpret this result as normal/abnor mal. # Eos (test code = 416) 0.48 See_Comment [Au tomated message] The system [employer] generated this result transmitted ref erence range: 0.04 - 0 .54 K/L. The refe rence range was not u sed to interpret this result as normal/abnor mal. # Baso (test code = 417) 0.02 See_Comment [A utomated message] The system [employer] generated this result transmitted ref erence range: 0.01 - 0 .08 K/L. The refe rence range was not u sed to interpret this result as normal/abnor mal. Immature 1 % 0-1 Granulocytes-Relative (test code = 2801) Lab Interpretation (test Abnormal code = 67677-5) [facility] W/PLT COUNT & AUTO [id number] 05:01:00 Test Item Value Reference Range Interpretation Comments WHITE BLOOD CELL COUNT (BEAKER) 9.8 K/ L 3.5-10.5 (test code = 775) RED BLOOD CELL COUNT (BEAKER) 3.73 M/ L 4.63-6.08 L (test code = 761) HEMOGLOBIN (BEAKER) (test code = 11.9 GM/DL 13.7-17.5 L 410) HEMATOCRIT (BEAKER) (test code = 36.8 % 40.1-51.0 L 411) MEAN CORPUSCULAR VOLUME (BEAKER) 98.7 fL 79.0-92.2 H (test code = 753) MEAN CORPUSCULAR HEMOGLOBIN 31.9 pg 25.7-32.2 (BEAKER) (test code = 751) MEAN CORPUSCULAR HEMOGLOBIN CONC 32.3 GM/DL 32.3-36.5 (BEAKER) (test code = 752) RED CELL DISTRIBUTION WIDTH 14.6 % 11.6-14.4 H (BEAKER) (test code = 412) PLATELET COUNT (BEAKER) (test 308 K/CU MM 150-450 code = 756) MEAN PLATELET VOLUME (BEAKER) 8.8 fL 9.4-12.4 L (test code = 754) NUCLEATED RED BLOOD CELLS 0 /100 WBC 0-0 (BEAKER) (test code = 413) NEUTROPHILS RELATIVE PERCENT 75 % (BEAKER) (test code = 429) LYMPHOCYTES RELATIVE PERCENT 8 % (BEAKER) (test code = 430) MONOCYTES RELATIVE PERCENT 12 % (BEAKER) (test code = 431) EOSINOPHILS RELATIVE PERCENT 5 % (BEAKER) (test code = 432) BASOPHILS RELATIVE PERCENT 0 % (BEAKER) (test code = 437) NEUTROPHILS ABSOLUTE COUNT 7.31 K/ L 1.78-5.38 H (BEAKER) (test code = 670) LYMPHOCYTES ABSOLUTE COUNT 0.74 K/ L 1.32-3.57 L (BEAKER) (test code = 414) MONOCYTES ABSOLUTE COUNT (BEAKER) 1.19 K/ L 0.30-0.82 H (test code = 415) EOSINOPHILS ABSOLUTE COUNT 0.48 K/ L 0.04-0.54 (BEAKER) (test code = 416) BASOPHILS ABSOLUTE COUNT (BEAKER) 0.02 K/ L 0.01-0.08 (test code = 417) IMMATURE GRANULOCYTES-RELATIVE 1 % 0-1 PERCENT (BEAKER) (test code = 2801) Basic metabolic [id number] 04:51:00 Test Item Value Reference Range Interpretation Comments Sodium (test code = 133 meq/L 136-145 L 2951-2) Potassium (test code = 4.9 meq/L 3.5-5.1 2823-3) Chloride (test code = 97 meq/L 98-107 L 2075-0) CO2 (test code = 29 meq/L 22-29 2028-9) BUN (test code = 19 mg/dL 7-21 3094-0) Creatinine (test code 0.72 mg/dL 0.57-1.25 = 2160-0) Glucose (test code = 91 mg/dL 70-105 2345-7) Calcium (test code = 8.5 mg/dL 8.4-10.2 43152-6) EGFR (test code = 107 mL/min/1.73 sq [place] [address]-9) NOT ACCURATE CREATININE CLEARANCE IN PREDICTING GLOMERULAR FILTRATION RATE . ESTIMATED GFR I S NOT APPLICABLE FOR DIALYSIS PATIENTS. ANNELIESE (test code = ANNELIESE) Vineyard Supervisor ID - EDASI Lab Interpretation Abnormal (test code = 46321-7) [facility] Hospital[facility]esium[facility] 04:51:00 Test Item Value Reference Range Interpretation Comments Magnesium (test code = 1.9 mg/dL 1.6-2.6 46187-6) ANNELIESE (test code = ANNELIESE) Vineyard Supervisor ID - EDASI Lab Interpretation (test Normal code = 81761-9) [facility]2020-[facility] 04:51:00 Test Item Value Reference Range Interpretation Comments Phosphorus (test code = 3.0 mg/dL 2.3-4.7 2777-1) ANNELIESE (test code = ANNELIESE) Vineyard Supervisor ID - EDASI Lab Interpretation (test Normal code = 88468-8) [facility]BAS[facility] METABOLIC [id number] 04:51:00 Test Item Value Reference Range Interpretation Comments SODIUM (BEAKER) 133 meq/L 136-145 L (test code = 381) POTASSIUM (BEAKER) 4.9 meq/L 3.5-5.1 (test code = 379) CHLORIDE (BEAKER) 97 meq/L 98-107 L (test code = 382) CO2 (BEAKER) (test 29 meq/L 22-29 code = 355) BLOOD UREA NITROGEN 19 mg/dL 7-21 (BEAKER) (test code = 354) CREATININE (BEAKER) 0.72 mg/dL 0.57-1.25 (test code = 358) GLUCOSE RANDOM 91 mg/dL 70-105 (BEAKER) (test code = 652) CALCIUM (BEAKER) 8.5 mg/dL 8.4-10.2 (test code = 697) EGFR (BEAKER) (test 107 mL/min/1.73 ESTIM ATED GFR IS code = 1092) sq m NOT ACCURATE CREATININE CLEARANCE IN PREDICTING GLOMERULAR FILTRATION RATE . ESTIMATED GFR I S NOT APPLICABLE FOR DIALYSIS PATIEN TS. Vineyard Supervisor ID - [id number] 04:51:00 Test Item Value Reference Range Interpretation Comments MAGNESIUM (BEAKER) (test code = 1.9 mg/dL 1.6-2.6 627) Vineyard Supervisor ID - [id number] 04:51:00 Test Item Value Reference Range Interpretation Comments PHOSPHORUS (BEAKER) (test code = 3.0 mg/dL 2.3-4.7 604) Vineyard Supervisor ID - EDASIRAD, CHEST, 1 VIEW, NON [id number] 09:42:00Reason for exam:->postop f/uShould this be performed at the bedside?->Yes [facility] 1945 Sex: MFINAL REPORT Chest, 1 view, 01/05/2020 7:43 AM. History: Postop. Comparison: 01/04/2020. Discussion: The cardiomediastinal silhouette and pulmonary vasculature are within normal limits for a portable exam. 2 right- sided chest tubes are unchanged in position. Small right apical pneumothorax is present. Scattered patchy opacities are present on the right. Left lung is clear.Right-sided subcutaneous emphysema is again noted. IMPRESSION: Small right apical pneumothorax without significant change. Signed: Gerber Garcia Verified Date/Time: 01/05/2020 09:42:19 Reading Location: [address] Reading Room BASIC METABOLIC [id number] 07:26:00 Test Item Value Reference Range Interpretation Comments SODIUM (BEAKER) 130 meq/L 136-145 L (test code = 381) POTASSIUM (BEAKER) 4.8 meq/L 3.5-5.1 (test code = 379) CHLORIDE (BEAKER) 96 meq/L 98-107 L (test code = 382) CO2 (BEAKER) (test 25 meq/L 22-29 code = 355) BLOOD UREA NITROGEN 22 mg/dL 7-21 H (BEAKER) (test code = 354) CREATININE (BEAKER) 0.74 mg/dL 0.57-1.25 (test code = 358) GLUCOSE RANDOM 128 mg/dL 70-105 H (BEAKER) (test code = 652) CALCIUM (BEAKER) 8.4 mg/dL 8.4-10.2 (test code = 697) EGFR (BEAKER) (test 104 mL/min/1.73 ESTIM ATED GFR IS code = 1092) sq m NOT ACCURATE CREATININE CLEARANCE IN PREDICTING GLOMERULAR FILTRATION RATE . ESTIMATED GFR I S NOT APPLICABLE FOR DIALYSIS PATIEN TS. Vineyard Supervisor ID - DAVID [id number] 07:26:00 Test Item Value Reference Range Interpretation Comments MAGNESIUM (BEAKER) (test code = 2.3 mg/dL 1.6-2.6 627) Vineyard Supervisor ID - DAVID [id number] 07:26:00 Test Item Value Reference Range Interpretation Comments PHOSPHORUS (BEAKER) (test code = 2.7 mg/dL 2.3-4.7 604) Vineyard Supervisor ID - DAVID LCBC W/PLT COUNT & AUTO [id number] 07:16:00 Test Item Value Reference Range Interpretation Comments WHITE BLOOD CELL COUNT (BEAKER) 13.6 K/ L 3.5-10.5 H (test code = 775) RED BLOOD CELL COUNT (BEAKER) 3.77 M/ L 4.63-6.08 L (test code = 761) HEMOGLOBIN (BEAKER) (test code = 11.8 GM/DL 13.7-17.5 L 410) HEMATOCRIT (BEAKER) (test code = 36.7 % 40.1-51.0 L 411) MEAN CORPUSCULAR VOLUME (BEAKER) 97.3 fL 79.0-92.2 H (test code = 753) MEAN CORPUSCULAR HEMOGLOBIN 31.3 pg 25.7-32.2 (BEAKER) (test code = 751) MEAN CORPUSCULAR HEMOGLOBIN CONC 32.2 GM/DL 32.3-36.5 L (BEAKER) (test code = 752) RED CELL DISTRIBUTION WIDTH 14.3 % 11.6-14.4 (BEAKER) (test code = 412) PLATELET COUNT (BEAKER) (test 292 K/CU MM 150-450 code = 756) MEAN PLATELET VOLUME (BEAKER) 9.0 fL 9.4-12.4 L (test code = 754) NUCLEATED RED BLOOD CELLS 0 /100 WBC 0-0 (BEAKER) (test code = 413) NEUTROPHILS RELATIVE PERCENT 87 % (BEAKER) (test code = 429) LYMPHOCYTES RELATIVE PERCENT 3 % (BEAKER) (test code = 430) MONOCYTES RELATIVE PERCENT 9 % (BEAKER) (test code = 431) EOSINOPHILS RELATIVE PERCENT 0 % (BEAKER) (test code = 432) BASOPHILS RELATIVE PERCENT 0 % (BEAKER) (test code = 437) NEUTROPHILS ABSOLUTE COUNT 11.84 K/ L 1.78-5.38 H (BEAKER) (test code = 670) LYMPHOCYTES ABSOLUTE COUNT 0.41 K/ L 1.32-3.57 L (BEAKER) (test code = 414) MONOCYTES ABSOLUTE COUNT (BEAKER) 1.24 K/ L 0.30-0.82 H (test code = 415) EOSINOPHILS ABSOLUTE COUNT 0.02 K/ L 0.04-0.54 L (BEAKER) (test code = 416) BASOPHILS ABSOLUTE COUNT (BEAKER) 0.01 K/ L 0.01-0.08 (test code = 417) IMMATURE GRANULOCYTES-RELATIVE 1 % 0-1 PERCENT (BEAKER) (test code = 2801) BASIC METABOLIC [id number] 17:55:00 Test Item Value Reference Range Interpretation Comments SODIUM (BEAKER) 131 meq/L 136-145 L (test code = 381) POTASSIUM (BEAKER) 4.3 meq/L 3.5-5.1 (test code = 379) CHLORIDE (BEAKER) 99 meq/L 98-107 (test code = 382) CO2 (BEAKER) (test 25 meq/L 22-29 code = 355) BLOOD UREA NITROGEN 28 mg/dL 7-21 H (BEAKER) (test code = 354) CREATININE (BEAKER) 0.82 mg/dL 0.57-1.25 (test code = 358) GLUCOSE RANDOM 157 mg/dL 70-105 H (BEAKER) (test code = 652) CALCIUM (BEAKER) 8.2 mg/dL 8.4-10.2 L (test code = 697) EGFR (BEAKER) (test 92 mL/min/1.73 ESTIMA AMAURY GFR IS code = 1092) sq m NOT ACCURATE CREATININE CLEARANCE IN PREDICTING GLOMERULAR FILTRATION RATE . ESTIMATED GFR I S NOT APPLICABLE FOR DIALYSIS PATIEN TS. Vineyard Supervisor ID - [id number] 17:55:00 Test Item Value Reference Range Interpretation Comments MAGNESIUM (BEAKER) (test code = 1.8 mg/dL 1.6-2.6 627) Vineyard Supervisor ID - [id number] 17:55:00 Test Item Value Reference Range Interpretation Comments PHOSPHORUS (BEAKER) (test code = 3.2 mg/dL 2.3-4.7 604) Vineyard Supervisor ID - [id number] 17:31:00 Test Item Value Reference Interpretation Comments Range Protime (test code = 14.9 See_Comment H [Autom ated 6522-2) message] The system which generated this result transmitted reference range : 11.9 - 14.2 seconds. The reference range was not used to interpret this result as normal/abnormal . INR (test code = 1.20 See_Comment [Automated 7881-6) message] The system which generated this result transmitted reference range : <=5.90. The reference range was not used to interpret this result as normal/abnormal . PTT (test code = 38.3 See_Comment H [Automated 68069-5) message] The system which generated this result transmitted reference range : 22.5 - 36.0 seconds. The reference range was not used to interpret this result as normal/abnormal . ANNELIESE (test code = Effective 07/13/2018: ANNELIESE) PT Reference Range ChangeNew: 11.9-14.2 Previous: 11.7-14.7 RECOMMENDED COUMADIN/WARFARIN INR THERAPY RANGESSTANDARD DOSE: 2.0-3.0 Includes: PROPHYLAXIS for venous thrombosis, systemic embolization; TREATMENT for venous thrombosis and/or pulmonary embolus.HIGH RISK: Target INR is 2.5-3.5 for patients wiht mechanical heart valves. Lab Interpretation Abnormal (test code = 88656-5) [facility]PT[facility][id number] 17:31:00 Test Item Value Reference Range Interpretation Comments PROTIME (BEAKER) (test code = 14.9 seconds 11.9-14.2 H 759) INR (BEAKER) (test code = 370) 1.20 <=5.90 PARTIAL THROMBOPLASTIN TIME 38.3 seconds 22.5-36.0 H (TONIE) (test code = 760) Effective 07/13/2018: PT Reference Range ChangeNew: 11.9-14.2 Previous: 11.7- 14.7RECOMMENDED COUMADIN/WARFARIN INR THERAPY RANGESSTANDARD DOSE: 2.0-3.0 Includes: PROPHYLAXIS for venous thrombosis, systemic embolization; TREATMENT for venous thrombosis and/or pulmonary embolus.HIGH RISK: Target INR is2.5-3.5 for patients wiht mechanical heart valves.CBC (Hemogram only)2020-01-04 17:21:00 Test Item Value Reference Range Interpretation Comments WBC (test code = 6690-2) 14.0 See_Comment H [A utomated message] The system [employer] generated this result transmitted ref erence range: 3.5 - 10 .5 K/L. The refe rence range was not u sed to interpret this result as normal/abnor mal. RBC (test code = 789-8) 3.81 See_Comment L [Au tomated message] The system [employer] generated this result transmitted ref erence range: 4.63 - 6 .08 M/L. The refe rence range was not u sed to interpret this result as normal/abnor mal. MCHC (test code = 786-4) 33.2 See_Comment L [A utomated message] The system [employer] generated this result transmitted ref erence range: 32.3 - 3 6.5 GM/DL. The refe rence range was not u sed to interpret this result as normal/abnor mal. Hematocrit (test code = 36.5 % 40.1-51 L 4544-3) MCV (test code = 787-2) 95.8 fL 79-92.2 H MCH (test code = 785-6) 31.8 pg 25.7-32.2 RDW (test code = 788-0) 14.4 % 11.6-14.4 Platelets (test code = 243 See_Comment [Aut omated message] 337-3) The system [employer] generated this result transmitted ref erence range: 150 - 45 0 K/CU MM. The referen ce range was not u sed to interpret this result as normal/abnor mal. MPV (test code = 8.6 fL 9.4-12.4 L 79308-2) nRBC (test code = 413) 0 See_Comment [Aut omated message] The system [employer] generated this result transmitted ref erence range: 0 - 0 /1 00 WBC. The refere nce range was not u sed to interpret this result as normal/abnor mal. Lab Interpretation (test Abnormal code = 41355-3) [facility] (HEMOGRAM ONLY)2020-01-04 17:21:00 Test Item Value Reference Range Interpretation Comments WHITE BLOOD CELL COUNT (BEAKER) 14.0 K/ L 3.5-10.5 H (test code = 775) RED BLOOD CELL COUNT (BEAKER) 3.81 M/ L 4.63-6.08 L (test code = 761) HEMOGLOBIN (BEAKER) (test code = 12.1 GM/DL 13.7-17.5 L 410) HEMATOCRIT (BEAKER) (test code = 36.5 % 40.1-51.0 L 411) MEAN CORPUSCULAR VOLUME (BEAKER) 95.8 fL 79.0-92.2 H (test code = 753) MEAN CORPUSCULAR HEMOGLOBIN 31.8 pg 25.7-32.2 (BEAKER) (test code = 751) MEAN CORPUSCULAR HEMOGLOBIN CONC 33.2 GM/DL 32.3-36.5 (BEAKER) (test code = 752) RED CELL DISTRIBUTION WIDTH 14.4 % 11.6-14.4 (BEAKER) (test code = 412) PLATELET COUNT (BEAKER) (test 243 K/CU MM 150-450 code = 756) MEAN PLATELET VOLUME (BEAKER) 8.6 fL 9.4-12.4 L (test code = 754) NUCLEATED RED BLOOD CELLS 0 /100 WBC 0-0 (BEAKER) (test code = 413) Calcium, [id number] 17:19:00 Test Item Value Reference Range Interpretation Comments Calcium, Ion (test code = 1993-) 1.03 mmol/L 1.12-1.27 L pH, Blood (test code = 80543-1) 7.39 Lab Interpretation (test code = Abnormal 87987-3) [facility] HospitalCALCIUM, [id number] 17:19:00 Test Item Value Reference Range Interpretation Comments CALCIUM IONIZED (BEAKER) (test 1.03 mmol/L 1.12-1.27 L code = 698) PH, BLOOD (BEAKER) (test code = 7.39 1810) RAD, CHEST, 1 VIEW, NON [id number] 17:18:00Reason for exam:->post op thoracici surgeryShould this be performed at the bedside?->[facility] 1945 Sex: MFINAL REPORT CHEST ONE VIEW HISTORY: Status post thoracic surgery, chest tubes COMPARISON: 0723 hours on 12/25/2019 FINDINGS: Single portable AP examination of the chest was performed. There is a small right apical pneumothorax which has slightly increased in size since the prior study. 2 right-sided chest is remain in place. There is moderate subcutaneous emphysema in the right chest wall, unchanged. Left lung clear. No left pleural effusion or pneumothorax. Cardiac shadow normal in size. Signed: Denisa Burnette MDRort Verified Date/Time: 01/04/2020 17:18:14 Reading Location: [facility] Radiology Reading Room Blood gas, [id number] 17:17:00 Test Item Value Reference Range Interpretation Comments pH, Arterial (test code 7.39 7.35-7.45 = 2744-1) pCO2, Arterial (test 40 See_Comment [Autom ated code = 2018-09) message] The system which generated this result transmitted reference range : 35 - 45 mm Hg. The reference range was not used to interpret this result as normal/abnormal . pO2, Arterial (test 172 See_Comment H [Automa amaury code = 2703-7) message] The system which generated this result transmitted reference range : 80 - 90 mm Hg. The reference range was not used to interpret this result as normal/abnormal . O2 Sat, Arterial (test 99.2 % 96-97 H code = 2708-6) HCO3, Arterial (test 23 mmol/L 21-29 code = 1960-4) Base Excess, Arterial -1.5 mmol/L -2-3 (test code = 1925-7) Patient Temperature 37.0 (test code = 8310-5) FIO2 (test code = 1819) 44 Lab Interpretation Abnormal (test code = 03518-1) [facility] HospitalBLOOD GAS, [id number] 17:17:00 Test Item Value Reference Range Interpretation Comments PH ARTERIAL (BEAKER) (test code = 7.39 7.35-7.45 383) PCO2 ARTERIAL (BEAKER) (test code 40 mm Hg 35-45 = 384) PO2 ARTERIAL (BEAKER) (test code 172 mm Hg 80-90 H = 385) O2 SATURATION ARTERIAL (BEAKER) 99.2 % 96.0-97.0 H (test code = 386) HCO3 ARTERIAL (BEAKER) (test code 23 mmol/L 21-29 = 388) BASE EXCESS ARTERIAL (BEAKER) -1.5 mmol/L -2.0-3.0 (test code = 387) PATIENT TEMPERATURE (BEAKER) 37.0 (test code = 1818) FIO2 (BEAKER) (test code = 1819) 44.0 HGB/HCT (H&H)-Stat [id number] 16:12:00 Test Item Value Reference Range Interpretation Comments Hemoglobin (test code = 12.5 See_Comment L [Au tomated message] 786-4) The system [employer] generated this result transmitted ref erence range: 13.0 - 1 6.8 GM/DL. The refe rence range was not u sed to interpret this result as normal/abnor mal. Hematocrit (test code = 37.0 % 40-50 L 4544-3) Lab Interpretation (test Abnormal code = 40412-5) [facility] HospitalGlucose-Stat [id number] 16:12:00 Test Item Value Reference Range Interpretation Comments Glucose (test code = 2345-7) 146 mg/dL 70-110 H Lab Interpretation (test code = Abnormal 75652-7) [facility] [id number] 16:12:00 Test Item Value Reference Range Interpretation Comments Sodium (test code = 2951-2) 128 meq/L 136-145 L Lab Interpretation (test code = Abnormal 78643-8) [facility] HospitalBLOOD GAS, [id number] 16:12:00 Test Item Value Reference Range Interpretation Comments PH ARTERIAL (BEAKER) (test code = 7.37 7.35-7.45 383) PCO2 ARTERIAL (BEAKER) (test code 44 mm Hg 35-45 = 384) PO2 ARTERIAL (BEAKER) (test code 516 mm Hg 80-90 H = 385) O2 SATURATION ARTERIAL (BEAKER) 99.9 % 96.0-97.0 H (test code = 386) HCO3 ARTERIAL (BEAKER) (test code 25 mmol/L 21-29 = 388) BASE EXCESS ARTERIAL (BEAKER) -0.7 mmol/L -2.0-3.0 (test code = 387) PATIENT TEMPERATURE (BEAKER) 35.3 (test code = 1818) FIO2 (BEAKER) (test code = 1819) 100.0 SODIUM NA-STAT [id number] 16:12:00 Test Item Value Reference Range Interpretation Comments SODIUM (BEAKER) (test code = 381) 128 meq/L 136-145 L GLUCOSE-STAT [id number] 16:12:00 Test Item Value Reference Range Interpretation Comments GLUCOSE RANDOM (BEAKER) (test code 146 mg/dL 70-110 H = 652) HGB/HCT (H&H) - STAT [id number] 16:12:00 Test Item Value Reference Range Interpretation Comments HEMOGLOBIN (BEAKER) (test code = 12.5 GM/DL 13.0-16.8 L 410) HEMATOCRIT (BEAKER) (test code = 37.0 % 40.0-50.0 L 411) CALCIUM, [id number] 16:12:00 Test Item Value Reference Range Interpretation Comments CALCIUM IONIZED (BEAKER) (test 1.06 mmol/L 1.12-1.27 L code = 698) PH, BLOOD (BEAKER) (test code = 7.34 1810) Potassium-Stat [id number] 16:11:00 Test Item Value Reference Range Interpretation Comments Potassium (test code = 2823-3) 4.0 meq/L 3.6-5.5 Lab Interpretation (test code = Normal 01582-6) [facility] HospitalPOTASSIUM-STAT [id number] 16:11:00 Test Item Value Reference Range Interpretation Comments POTASSIUM (BEAKER) (test code = 4.0 meq/L 3.6-5.5 379) RAD, CHEST, 1 VIEW, NON [id number] 10:50:00Reason for exam:->s/p chest tubeShould this be performed at the bedside?->Yes [facility] 1945 Sex: MFINAL REPORT CLINICAL HISTORY: s/p chest tube TECHNIQUE: 1 view of the chest. COMPARISON: 01/03/2020 IMPRESSION: The right chest tube is unchanged. A trace right apical pneumothorax is unchanged. Right chest wall subcutaneous emphysema is unchanged. Hazy right lower lung opacities and layering right pleural effusion are unchanged. The cardiomediastinal silhouette is magnifiedby technique. Signed: Shyla Chapin MDReport Verified Date/Time: 01/04/2020 10:50:50 Reading Location: [facility] Radiology Reading Room BASIC METABOLIC [id number] 05:47:00 Test Item Value Reference Range Interpretation Comments SODIUM (BEAKER) 129 meq/L 136-145 L (test code = 381) POTASSIUM (BEAKER) 4.3 meq/L 3.5-5.1 (test code = 379) CHLORIDE (BEAKER) 94 meq/L 98-107 L (test code = 382) CO2 (BEAKER) (test 28 meq/L 22-29 code = 355) BLOOD UREA NITROGEN 29 mg/dL 7-21 H (BEAKER) (test code = 354) CREATININE (BEAKER) 0.91 mg/dL 0.57-1.25 (test code = 358) GLUCOSE RANDOM 92 mg/dL 70-105 (BEAKER) (test code = 652) CALCIUM (BEAKER) 9.0 mg/dL 8.4-10.2 (test code = 697) EGFR (BEAKER) (test 82 mL/min/1.73 ESTIMA AMAURY GFR IS code = 1092) sq m NOT ACCURATE CREATININE CLEARANCE IN PREDICTING GLOMERULAR FILTRATION RATE . ESTIMATED GFR I S NOT APPLICABLE FOR DIALYSIS PATIEN TS. Vineyard Supervisor ID - MORAIMA [id number] 05:47:00 Test Item Value Reference Range Interpretation Comments MAGNESIUM (BEAKER) (test code = 1.9 mg/dL 1.6-2.6 627) Vineyard Supervisor ID - MORAIMA [id number] 05:47:00 Test Item Value Reference Range Interpretation Comments PHOSPHORUS (BEAKER) (test code = 3.2 mg/dL 2.3-4.7 604) Vineyard Supervisor ID - MORAIMA MPT/[id number] 05:46:00 Test Item Value Reference Range Interpretation Comments PROTIME (BEAKER) (test code = 14.6 seconds 11.9-14.2 H 759) INR (BEAKER) (test code = 370) 1.17 <=5.90 PARTIAL THROMBOPLASTIN TIME 41.9 seconds 22.5-36.0 H (BEAKER) (test code = 760) Effective 07/13/2018: PT Reference Range ChangeNew: 11.9-14.2 Previous: 11.7- 14.7RECOMMENDED COUMADIN/WARFARIN INR THERAPY RANGESSTANDARD DOSE: 2.0-3.0 Includes: PROPHYLAXIS for venous thrombosis, systemic embolization; TREATMENT for venous thrombosis and/or pulmonary embolus.HIGH RISK: Target INR is2.5-3.5 for patients wiht mechanical heart valves.CBC (HEMOGRAM ONLY)2020-01-04 05:23:00 Test Item Value Reference Range Interpretation Comments WHITE BLOOD CELL COUNT (BEAKER) 7.9 K/ L 3.5-10.5 (test code = 775) RED BLOOD CELL COUNT (BEAKER) 3.82 M/ L 4.63-6.08 L (test code = 761) HEMOGLOBIN (BEAKER) (test code = 12.2 GM/DL 13.7-17.5 L 410) HEMATOCRIT (BEAKER) (test code = 36.2 % 40.1-51.0 L 411) MEAN CORPUSCULAR VOLUME (BEAKER) 94.8 fL 79.0-92.2 H (test code = 753) MEAN CORPUSCULAR HEMOGLOBIN 31.9 pg 25.7-32.2 (BEAKER) (test code = 751) MEAN CORPUSCULAR HEMOGLOBIN CONC 33.7 GM/DL 32.3-36.5 (BEAKER) (test code = 752) RED CELL DISTRIBUTION WIDTH 14.5 % 11.6-14.4 H (BEAKER) (test code = 412) PLATELET COUNT (BEAKER) (test 255 K/CU MM 150-450 code = 756) MEAN PLATELET VOLUME (BEAKER) 8.8 fL 9.4-12.4 L (test code = 754) NUCLEATED RED BLOOD CELLS 0 /100 WBC 0-0 (BEAKER) (test code = 413) Type and screen, [id number] 23:44:00 Test Item Value Reference Range Interpretation Comments ABO/RH AUTOMATED (BEAKER) (test O POSITIVE code = 2260) Ab Scrn (test code = 890-4) NEGATIVE [facility] HospitalABORH, [id number] 23:24:00 Test Item Value Reference Range Interpretation Comments Rh Factor (test code = 2589) POS ABO Grouping (test code = 2588) O [facility] HospitalRAD, CHEST, 1 VIEW, NON [id number] 11:01:00 Reason for exam:->s/p chest tubeShould this be performed at the bedside?->[facility] : 1945 Sex: MFINAL REPORT CLINICAL HISTORY: s/p chest tube TECHNIQUE: 1 view of the chest. COMPARISON: 01/02/2020 IMPRESSION: A right chest tube is again seen with a small right apical pneumothorax unchanged. Right chest wall subcutaneous emphysema is unchanged. Hazy right lung opacities and layering right pleural effusion are unchanged. The cardiomediastinal silhouette is magnified by rosemarie hnique. Signed: Shyla Chapinepmercy [facility] Verified Date/Time: 01/03/2020 11:01:14 Reading Location: [facility] Radiology Reading Room Hemoglobin [id number] 07:34:00 Test Item Value Reference Range Interpretation Comments Hemoglobin A1C (test code = 4548-4) 5.7 % 4.3-6.1 Lab Interpretation (test code = Normal 45460-9) [facility] HospitalHEMOGLOBIN [id number] 07:34:00 Test Item Value Reference Range Interpretation Comments HEMOGLOBIN A1C (BEAKER) (test code = 5.7 % 4.3-6.1 368) Lipid [id number] 06:42:00 Test Item Value Reference Range Interpretation Comments Triglycerides (test 78 mg/dL code = 2571-8) Cholesterol (test code 110 mg/dL = 2093-3) HDL (test code = 34 mg/dL 5-9) LDL Calculated (test 60 mg/dL code = 25654-7) ANNELIESE (test code = ANNELIESE) Triglyceride Reference Range: Low Risk <150 Borderline 150-199 High Risk 200-499 Very High Risk >=500 Cholesterol Reference Range: Low Risk <200 Borderline 200-239 High Risk >240 HDL Cholesterol Reference Range: Low Risk >=60 High Risk <40 LDL Cholesterol Reference Range: Optimal <100 Near Optimal 100-129 Borderline 130-159 High 160-189 Very High >=190 Vineyard Supervisor ID - YESI MOTNANA [facility] [id number] 06:42:00 Test Item Value Reference Range Interpretation Comments SODIUM (BEAKER) 130 meq/L 136-145 L (test code = 381) POTASSIUM (BEAKER) 4.2 meq/L 3.5-5.1 (test code = 379) CHLORIDE (BEAKER) 94 meq/L 98-107 L (test code = 382) CO2 (BEAKER) (test 27 meq/L 22-29 code = 355) BLOOD UREA NITROGEN 22 mg/dL 7-21 H (BEAKER) (test code = 354) CREATININE (BEAKER) 0.92 mg/dL 0.57-1.25 (test code = 358) GLUCOSE RANDOM 97 mg/dL 70-105 (BEAKER) (test code = 652) CALCIUM (BEAKER) 8.7 mg/dL 8.4-10.2 (test code = 697) EGFR (BEAKER) (test 81 mL/min/1.73 ESTIMA AMAURY GFR IS code = 1092) sq m NOT ACCURATE CREATININE CLEARANCE IN PREDICTING GLOMERULAR FILTRATION RATE . ESTIMATED GFR I S NOT APPLICABLE FOR DIALYSIS PATIEN TS. Vineyard Supervisor ID - [id number] 06:42:00 Test Item Value Reference Range Interpretation Comments MAGNESIUM (BEAKER) (test code = 1.7 mg/dL 1.6-2.6 627) Vineyard Supervisor ID - [id number] 06:42:00 Test Item Value Reference Range Interpretation Comments PHOSPHORUS (BEAKER) (test code = 3.7 mg/dL 2.3-4.7 604) Vineyard Supervisor ID - YESILIPID [id number] 06:42:00 Test Item Value Reference Range Interpretation Comments TRIGLYCERIDES (BEAKER) (test code = 78 mg/dL 540) CHOLESTEROL (BEAKER) (test code = 110 mg/dL 631) HDL CHOLESTEROL (BEAKER) (test code 34 mg/dL = 976) LDL CHOLESTEROL CALCULATED (BEAKER) 60 mg/dL (test code = 633) Triglyceride Reference Range: Low Risk <150 Borderline 150-199 High Risk 200-499 Very High Risk >=500Cholesterol Reference Range: Low Risk <200 Borderline 200-239 High Risk >240HDL Cholesterol Reference Range: Low Risk >=60 High Risk <40LDL Cholesterol Reference Range: Optimal <100 Near Optimal 100-129 Borderline 130-159 High 160-189 Very High >=190 Vineyard Supervisor ID - EDASITSH/Free T4 If [id number] 06:27:00 Test Item Value Reference Range Interpretation Comments TSH (test code = 4.851 See_Comment [Automated 01097-5) message] The system which generated this result transmit amaury reference range : 0.350 - 4.940 uIU/mL. The reference range was not used to interpret this result as normal/abnormal . ANNELIESE (test code = ANNELIESE) Vineyard Supervisor ID - MORAIMA M Lab Interpretation Normal (test code = 36339-6) [facility] HospitalTSH/FREE T4 IF [id number] 06:27:00 Test Item Value Reference Range Interpretation Comments THYROID STIMULATING HORMONE 4.851 uIU/mL 0.350-4.940 (BEAKER) (test code = 772) Vineyard Supervisor ID - MORAIMA [facility] (HEMOGRAM ONLY)2020-01-03 05:45:00 Test Item Value Reference Range Interpretation Comments WHITE BLOOD CELL COUNT (BEAKER) 11.0 K/ L 3.5-10.5 H (test code = 775) RED BLOOD CELL COUNT (BEAKER) 3.98 M/ L 4.63-6.08 L (test code = 761) HEMOGLOBIN (BEAKER) (test code = 12.7 GM/DL 13.7-17.5 L 410) HEMATOCRIT (BEAKER) (test code = 37.9 % 40.1-51.0 L 411) MEAN CORPUSCULAR VOLUME (BEAKER) 95.2 fL 79.0-92.2 H (test code = 753) MEAN CORPUSCULAR HEMOGLOBIN 31.9 pg 25.7-32.2 (BEAKER) (test code = 751) MEAN CORPUSCULAR HEMOGLOBIN CONC 33.5 GM/DL 32.3-36.5 (BEAKER) (test code = 752) RED CELL DISTRIBUTION WIDTH 14.6 % 11.6-14.4 H (BEAKER) (test code = 412) PLATELET COUNT (BEAKER) (test 282 K/CU MM 150-450 code = 756) MEAN PLATELET VOLUME (BEAKER) 8.7 fL 9.4-12.4 L (test code = 754) NUCLEATED RED BLOOD CELLS 0 /100 WBC 0-0 (BEAKER) (test code = 413) STRESS ECHO With Contrast & [id number] 10:51:44 Test Item Value Reference Range Interpretation Comments Ejection Fraction Est EF of >70% (test code = 2574) PXN (test code = Interface, External Ris In PXN) - 01/02/2020 10:51 AM CSTStress Echocardiography Report Demographics Patient Name TERRI PALMA Date of Study 01/02/2020 Gender Male Visit Number [id number] Race Room Number 1050 Number Date of 1945 Referring Physician guy bowden Age 74 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 Complications: None Medications: Atropine: 0.25mgmg. Dobutamine infusion with peak rate of 40 mcg/kg/min. ECG: The resting heart rate was 65 bpm. Resting electrocardiogram showed normal sinus rhythm with no ischemic changes. The heart rate increased to 151 bpm which corresponded to 102% maximum predicted heart rate. At peak stress, 0.[address] changes noted in the inferior and lateral leads. Not suggestive of ischemia. There were no arrhythmias noted. The blood pressure at baseline was 124/63 mm Hg and was 156/52 at peak stress. The patient did not develop any significant symptoms. Echocardiogram: LV endocardium is well visualized with IV ultrasound enhancing agent. Resting echocardiogram showed normal LV systolic function, estimated LVEF of 55%. Normal wall motion. At peak stress, the echocardiogram showed appropriate LV augmentation. Estimated LVEF of >70%. No wall motion abnormalities. Conclusion: Dobutamine Stress Echo is negative for inducible ischemia at > 85% of age predicted max heart rate. Previous Study No prior DSE available for comparison. [facility] HospitalRAD, CHEST, 1 VIEW, NON [id number] 08:13:00 Reason for exam:->s/p chest tubeShould this be performed at the bedside?->[facility] : 1945 Sex: MFINAL REPORT CLINICAL HISTORY: s/p chest tube TECHNIQUE: 1 view of the chest. COMPARISON: 01/01/2020 IMPRESSION: A right apical chest tube is again seen along with a slightly increased small right apical pneumothorax. Right chest wall subcutaneous emphysema is again seen. The lung montes are otherwise unchanged. Signed: Shyla Chapin MDReport Verified Date/Time: 01/02/2020 08 :13:58 Reading Location: [facility] Radiology Reading Room BASIC METABOLIC [id number] 06:10:00 Test Item Value Reference Range Interpretation Comments SODIUM (BEAKER) 133 meq/L 136-145 L (test code = 381) POTASSIUM (BEAKER) 4.6 meq/L 3.5-5.1 (test code = 379) CHLORIDE (BEAKER) 96 meq/L 98-107 L (test code = 382) CO2 (BEAKER) (test 30 meq/L 22-29 H code = 355) BLOOD UREA NITROGEN 17 mg/dL 7-21 (BEAKER) (test code = 354) CREATININE (BEAKER) 0.81 mg/dL 0.57-1.25 (test code = 358) GLUCOSE RANDOM 109 mg/dL 70-105 H (BEAKER) (test code = 652) CALCIUM (BEAKER) 9.1 mg/dL 8.4-10.2 (test code = 697) EGFR (BEAKER) (test 94 mL/min/1.73 ESTIMA AMAURY GFR IS code = 1092) sq m NOT ACCURATE CREATININE CLEARANCE IN PREDICTING GLOMERULAR FILTRATION RATE . ESTIMATED GFR I S NOT APPLICABLE FOR DIALYSIS PATIEN TS. Vineyard Supervisor ID - [id number] 06:10:00 Test Item Value Reference Range Interpretation Comments MAGNESIUM (BEAKER) (test code = 1.7 mg/dL 1.6-2.6 627) Vineyard Supervisor ID - [id number] 06:10:00 Test Item Value Reference Range Interpretation Comments PHOSPHORUS (BEAKER) (test code = 4.0 mg/dL 2.3-4.7 604) Vineyard Supervisor ID - EDASICBC (HEMOGRAM ONLY)2020-01-02 05:20:00 Test Item Value Reference Range Interpretation Comments WHITE BLOOD CELL COUNT (BEAKER) 9.6 K/ L 3.5-10.5 (test code = 775) RED BLOOD CELL COUNT (BEAKER) 4.31 M/ L 4.63-6.08 L (test code = 761) HEMOGLOBIN (BEAKER) (test code = 13.6 GM/DL 13.7-17.5 L 410) HEMATOCRIT (BEAKER) (test code = 41.4 % 40.1-51.0 411) MEAN CORPUSCULAR VOLUME (BEAKER) 96.1 fL 79.0-92.2 H (test code = 753) MEAN CORPUSCULAR HEMOGLOBIN 31.6 pg 25.7-32.2 (BEAKER) (test code = 751) MEAN CORPUSCULAR HEMOGLOBIN CONC 32.9 GM/DL 32.3-36.5 (BEAKER) (test code = 752) RED CELL DISTRIBUTION WIDTH 14.6 % 11.6-14.4 H (BEAKER) (test code = 412) PLATELET COUNT (BEAKER) (test 280 K/CU MM 150-450 code = 756) MEAN PLATELET VOLUME (BEAKER) 8.7 fL 9.4-12.4 L (test code = 754) NUCLEATED RED BLOOD CELLS 0 /100 WBC 0-0 (BEAKER) (test code = 413) SARS-COV2/RT-PCR ([facility])2020-01-01 15:11:00 Test Item Value Reference Range Interpretation Comments SARS-COV2/RT-PCR (test Negative Not Detected, Negative, code = 4310595) See external report for linked test SARS-COV-2 PERFORMING [facility] (test code = 5067889) Negative result for this test determines that SARS-CoV-2 RNA was not present in the specimen above the Limit of Detection (LOD). However, Negative results do not preclude SARS-CoV-2 infection and should not be used as the sole basis for treatment or patient management decisions. Negative results mustbe combined with clinical observations, patient history, and epidemiological information. A false negative result may occur if a specimen is improperly collected, transported or handled. A false negative result should be considered if patient's recent exposures or clinical presentation indicate that COVID-19 (SARS-CoV-2) is likely and diagnostic tests for other causes of illness are negative. Re-testing should be considered in cases of suspected false negatives.The limit of detection for this assay is 800 copies/mL.This SARS CoV-2 test is a real-time RT-PCR test intended for the qualitative detection of nucleic acid from SARS-CoV-2 in a nasopharyngeal swab specimen collected from individuals susp ected of COVID-19 by their healthcare provider.This test has not been Food and Drug Administration (FDA) cleared or approved. This is a modified version of an approved Emergency Use Authorization (EUA) and is in the process of review by the FDA. Once authorized by the FDA, the issued EUA will be effective until the declaration that circumstances exist justifying the authorization of the emergency use of in vitro diagnostic tests for detection and/or diagnosis of COVID-19 is terminated under Section 564(b)(2) of the Act or the EUA is revoked under Section 564(g) of the Act.Fact Sheet for Healthcare Providers:https://[email or web address]/sites/default/files/product/documents/Fact_Shee [email or web address] Sheet for Healthcare Patients:[email or web address] Laboratory:[facility], [place] [address]FHV, CHEST, 1 VIEW, NON [id number] 08:09:00Reason for exam:->s/p chest tubeShould this be performed at the bedside?->Yes [facility] 1945 Sex: MFINAL REPORT CLINICAL HISTORY: s/p chest tube TECHNIQUE: 1 view of the chest. COMPARISON: 12/31/2019 IMPRESSION: A right apical chest tube is again seen. A trace right apical pneumothorax is again noted. Diffuse right chest wall subcutaneous emphysema is unchanged. There is nonew lobar consolidation. Trace blunting of both costophrenic angles is unchanged. There is no cardiomegaly. Signed: Shyla Chapin MDReport Verified Date/Time: 01/01/2020 08:09:45 Reading Location: [facility] Radiology Reading Room BASIC METABOLIC [id number] 06:43:00 Test Item Value Reference Range Interpretation Comments SODIUM (BEAKER) 131 meq/L 136-145 L (test code = 381) POTASSIUM (BEAKER) 4.8 meq/L 3.5-5.1 (test code = 379) CHLORIDE (BEAKER) 95 meq/L 98-107 L (test code = 382) CO2 (BEAKER) (test 31 meq/L 22-29 H code = 355) BLOOD UREA NITROGEN 16 mg/dL 7-21 (BEAKER) (test code = 354) CREATININE (BEAKER) 0.78 mg/dL 0.57-1.25 (test code = 358) GLUCOSE RANDOM 78 mg/dL 70-105 (BEAKER) (test code = 652) CALCIUM (BEAKER) 8.7 mg/dL 8.4-10.2 (test code = 697) EGFR (BEAKER) (test 98 mL/min/1.73 ESTIMA AMAURY GFR IS code = 1092) sq m NOT ACCURATE CREATININE CLEARANCE IN PREDICTING GLOMERULAR FILTRATION RATE . ESTIMATED GFR I S NOT APPLICABLE FOR DIALYSIS PATIEN TS. Vineyard Supervisor ID - [id number] 06:43:00 Test Item Value Reference Range Interpretation Comments MAGNESIUM (BEAKER) (test code = 1.8 mg/dL 1.6-2.6 627) Vineyard Supervisor ID - [id number] 06:43:00 Test Item Value Reference Range Interpretation Comments PHOSPHORUS (BEAKER) (test code = 3.5 mg/dL 2.3-4.7 604) Vineyard Supervisor ID - [id number] (HEMOGRAM ONLY)2020-01-01 06:09:00 Test Item Value Reference Range Interpretation Comments WHITE BLOOD CELL COUNT (BEAKER) 7.1 K/ L 3.5-10.5 (test code = 775) RED BLOOD CELL COUNT (BEAKER) 3.78 M/ L 4.63-6.08 L (test code = 761) HEMOGLOBIN (BEAKER) (test code = 12.1 GM/DL 13.7-17.5 L 410) HEMATOCRIT (BEAKER) (test code = 36.8 % 40.1-51.0 L 411) MEAN CORPUSCULAR VOLUME (BEAKER) 97.4 fL 79.0-92.2 H (test code = 753) MEAN CORPUSCULAR HEMOGLOBIN 32.0 pg 25.7-32.2 (BEAKER) (test code = 751) MEAN CORPUSCULAR HEMOGLOBIN CONC 32.9 GM/DL 32.3-36.5 (BEAKER) (test code = 752) RED CELL DISTRIBUTION WIDTH 14.9 % 11.6-14.4 H (BEAKER) (test code = 412) PLATELET COUNT (BEAKER) (test 250 K/CU MM 150-450 code = 756) MEAN PLATELET VOLUME (BEAKER) 8.9 fL 9.4-12.4 L (test code = 754) NUCLEATED RED BLOOD CELLS 0 /100 WBC 0-0 (BEAKER) (test code = 413) CT, CAROTID, [id number] 01:51:00Unlisted Reason for Exam - Click Yes and Enter Reason Below->YesUnlisted Reason for Exam->Bilateral asymptomatic carotid stenosis/occlusion. [facility] : 1945 Sex: MFINAL REPORT EXAM: CT, CAROTID, ANGIO, CT, CTANGIO BRAIN CLINICAL INDICATION: Bilateral asymptomatic carotid stenosis/occlusion. TECHNIQUE: Helical CT of the head without IV contrast. Postcontrast CTA of the head and CTA of the neck with IV contrast. Multiplanar reconstructedimages. 3D reconstructions with MIP images were performed. This exam was performed according to our departmental dose-optimization program, which includes automated exposure control, adjustment of the mA and/or kV according to patient size and/or use of iterative reconstruction technique. COMPARISON: None. FINDINGS:CT HEAD: Parenchyma: No infarction. No hemorrhage. No mass or mass effect. Extra-axialCollection: None Ventricular System: Normal Paranasal Sinuses: Mild mucosal thickening of both maxillary antra and bilateral ethmoidal air cells. Tympanomastoid Cavities: Normal Other: Prior rightlens surgery CTA HEAD: Anterior Circulation:Right intracranial internal carotid artery (ICA): The right ICA is occluded with reconstitution at the carotid terminus likely from the anterior communicating artery.Right anterior cerebral artery (RAFAELA): NormalRight middle cerebral artery (MCA): Normal Leftintracranial internal carotid artery (ICA): Severe atherosclerotic narrowing of the cavernous and supraclinoid segments.Left anterior cerebral artery (RAFAELA): NormalLeft middle cerebral artery (MCA): Normal Anterior communicating artery (AComm): PresentPosterior communicating arteries (PComm): Present bilaterally. Posterior Circulation:Right posterior cerebral artery (SKATING RINK MANAGER): NormalLeft posterior cerebral artery (SKATING RINK MANAGER): Normal Right vertebral artery (VA): Mild atherosclerotic narrowing of the proximal [id number] with patency distally.Left vertebral artery (VA): NormalBasilar artery (BA): Normal Other: None Dural Venous Sinuses: Normal CTA NECK:Aortic arch and proximal great vessels: Atherosclerotic changes resulting in mild narrowing of the proximal right subclavian artery. Right carotid arterial system: Mild irregular atherosclerotic narrowing of the right common carotid artery. Internal carotid artery is occluded beginning at the carotid bulb.Left carotid arterial system: Moderate atherosclerotic narrowing of the left common carotid artery origin. Severe (70%) proximal internal carotid arterynarrowing secondary to atherosclerotic plaque. Right vertebral artery: NormalLeft vertebral artery: Normal Where applicable, evaluation of internal carotid artery (ICA) stenosis was performed using NASCET-like criteria, where the site of greatest stenosis is compared to the diameter of the ICA distalto the stenosis at a point where the ICA maza become parallel. Neck Soft Tissues: Moderate soft tissue emphysema in the right lower neck and imaged right chest wall is likely iatrogenic. There is a left parotid gland lesion that is 1.7 x 1.0 cm. There is collateralized vessels in the right neck. Osseous Structures: No acute osseous abnormality. Degenerative changes of the cervical spine with small disc osteophyte complexes, facet arthropathy, and uncovertebral spurring. No evidence of significant stenosis. There is nonspecific sclerosis in the C5 vertebral body. No destructive lesion. Bones are osteopenic. Included Lung Apices: Right chest tube terminates the right lung apex and there is a small right pneumothorax. Marked biapical paraseptal and centrilobular emphysema. IMPRESSION: 1. Severe atherosclerotic stenosis (70%) of the proximal left internal carotid artery. There is also moderate atherosclerotic stenosis at the origin of the left common carotid artery.2. Chronic occlusion of the right internal carotid artery narrowing at the carotid bulb with reconstitution at the intracranial carotid terminus. Associated collateralized vessels in the right neck.3. Severe atherosclerotic stenosisof the intracranial cavernous and supraclinoid segments of the left internal carotid artery.4. 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 Consider further evaluation with MRI for further characterization. Signed: Zulma Vásquez MDReport Verified Date/Time: 01/01/2020 01:51:54 [facility], CTAIO [id number] 01:51:00Unlisted Reason for Exam - Click Yes and Enter Reason Below->YesUnlisted Reason for Exam->Bilateral asymptomatic carotid stenosis/occlusion [facility] : 1945 Sex: MFINAL REPORT EXAM: CT, CAROTID, ANGIO, CT, CTANGIO BRAIN CLINICAL INDICATION: Bilateral asymptomatic carotid stenosis/occlusion. TECHNIQUE: Helical CT of the head without IV contrast. Postcontrast CTA of the head and CTA of the neck with IV contrast. Multiplanar reconstructedimages. 3D reconstructions with MIP images were performed. This exam was performed according to our departmental dose-optimization program, which includes automated exposure control, adjustment of the mA and/or kV according to patient size and/or use of iterative reconstruction technique. COMPARISON: None. FINDINGS:CT HEAD: Parenchyma: No infarction. No hemorrhage. No mass or mass effect. Extra-axialCollection: None Ventricular System: Normal Paranasal Sinuses: Mild mucosal thickening of both maxillary antra and bilateral ethmoidal air cells. Tympanomastoid Cavities: Normal Other: Prior rightlens surgery CTA HEAD: Anterior Circulation:Right intracranial internal carotid artery (ICA): The right ICA is occluded with reconstitution at the carotid terminus likely from the anterior communicating artery.Right anterior cerebral artery (RAFAELA): NormalRight middle cerebral artery (MCA): Normal Leftintracranial internal carotid artery (ICA): Severe atherosclerotic narrowing of the cavernous and supraclinoid segments.Left anterior cerebral artery (RAFAELA): NormalLeft middle cerebral artery (MCA): Normal Anterior communicating artery (AComm): PresentPosterior communicating arteries (PComm): Present bilaterally. Posterior Circulation:Right posterior cerebral artery (SKATING RINK MANAGER): NormalLeft posterior cerebral artery (SKATING RINK MANAGER): Normal Right vertebral artery (VA): Mild atherosclerotic narrowing of the proximal [id number] with patency distally.Left vertebral artery (VA): NormalBasilar artery (BA): Normal Other: None Dural Venous Sinuses: Normal CTA NECK:Aortic arch and proximal great vessels: Atherosclerotic changes resulting in mild narrowing of the proximal right subclavian artery. Right carotid arterial system: Mild irregular atherosclerotic narrowing of the right common carotid artery. Internal carotid artery is occluded beginning at the carotid bulb.Left carotid arterial system: Moderate atherosclerotic narrowing of the left common carotid artery origin. Severe (70%) proximal internal carotid arterynarrowing secondary to atherosclerotic plaque. Right vertebral artery: NormalLeft vertebral artery: Normal Where applicable, evaluation of internal carotid artery (ICA) stenosis was performed using NASCET-like criteria, where the site of greatest stenosis is compared to the diameter of the ICA distalto the stenosis at a point where the ICA maza become parallel. Neck Soft Tissues: Moderate soft tissue emphysema in the right lower neck and imaged right chest wall is likely iatrogenic. There is a left parotid gland lesion that is 1.7 x 1.0 cm. There is collateralized vessels in the right neck. Osseous Structures: No acute osseous abnormality. Degenerative changes of the cervical spine with small disc osteophyte complexes, facet arthropathy, and uncovertebral spurring. No evidence of significant stenosis. There is nonspecific sclerosis in the C5 vertebral body. No destructive lesion. Bones are osteopenic. Included Lung Apices: Right chest tube terminates the right lung apex and there is a small right pneumothorax. Marked biapical paraseptal and centrilobular emphysema. IMPRESSION: 1. Severe atherosclerotic stenosis (70%) of the proximal left internal carotid artery. There is also moderate atherosclerotic stenosis at the origin of the left common carotid artery.2. Chronic occlusion of the right internal carotid artery narrowing at the carotid bulb with reconstitution at the intracranial carotid terminus. Associated collateralized vessels in the right neck.3. Severe atherosclerotic stenosisof the intracranial cavernous and supraclinoid segments of the left internal carotid artery.4. 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 Consider further evaluation with MRI for further characterization. Signed: uZlma Vásquez MDReport Verified Date/Time: 01/01/2020 01:51:54 [facility] brain 2020-01-01 01:51:00Interface, External Ris In - 01/01/2020 1:55 AM CSTFINAL REPORT EXAM: CT, CAROTID, ANGIO, CT, CTANGIO BRAIN CLINICAL INDICATION: Bilateral asymptomatic carotid stenosis/occlusion. TECHNIQUE: Helical CT of the head without IV contrast. Postcontrast CTA of the head and CTA of the neck with IV contrast. Multiplanar reconstructed images. 3D reconstructions with MIP images were performed. This exam was performed according to our departmental dose-optimization program, which includes automated exposure control, adjustment of the mA and/or kV according to patient size and/or use of iterative reconstruction technique. COMPARISON: None. FINDINGS:CT HEAD: Parenchyma: No infarction. No hemorrhage. No mass or mass effect. Extra-axial Collection: None Ventricular System: Normal Paranasal Sinuses: Mild mucosal thickening of both maxillary antra and bilateral ethmoidal air cells. Tympanomastoid Cavities: Normal Other: Prior right lens surgery CTA HEAD: Anterior Circulation:Rightintracranial internal carotid artery (ICA): The right ICA is occluded with reconstitution at the carotid terminus likely from the anterior communicating artery.Right anterior cerebral artery (RAFAELA): NormalRight middle cerebral artery (MCA): Normal Left intracranial internal carotid artery (ICA): Severeatherosclerotic narrowing of the cavernous and supraclinoid segments.Left anterior cerebral artery (RAFAELA): NormalLeft middle cerebral artery (MCA): Normal Anterior communicating artery (AComm): PresentPo sterior communicating arteries (PComm): Present bilaterally. Posterior Circulation:Right posterior cerebral artery (SKATING RINK MANAGER): NormalLeft posterior cerebral artery (SKATING RINK MANAGER): Normal Right vertebral artery (VA):Mild atherosclerotic narrowing of the proximal V4 segment with patency distally.Left vertebral artery (VA): NormalBasilar artery (BA): Normal Other: None Dural Venous Sinuses: Normal CTA NECK:Aortic arch and proximal great vessels: Atherosclerotic changes resulting in mild narrowing of the proximal right subclavian artery. Right carotid arterial system: Mild irregular atherosclerotic narrowing of the right common carotid artery. Internal carotid artery is occluded beginning at the carotid bulb.Left carotid arterial system: Moderate atherosclerotic narrowing of the left common carotid artery origin. Severe (70%) proximal internal carotid artery narrowing secondary to atherosclerotic plaque. Right vertebral artery: NormalLeft vertebral artery: Normal Where applicable, evaluation of internal carotid artery (ICA) stenosis was performed using NASCET-like criteria, where the site of greatest stenosis is compared to the diameter of the ICA distal to the stenosis at a point where the ICA maza become parallel. Neck Soft Tissues: Moderate soft tissue emphysema in the right lower neck and imaged right chest wall is likely iatrogenic. There is a left parotid gland lesion that is 1.7 x 1.0 cm. Thereis collateralized vessels in the right neck. Osseous Structures: No acute osseous abnormality. Degenerative changes of the cervical spine with small disc osteophyte complexes, facet arthropathy, and uncovertebral spurring. No evidence of significant stenosis. There is nonspecific sclerosis in the C5 v ertebral body. No destructive lesion. Bones are osteopenic. Included Lung Apices: Right chest tube terminates the right lung apex and there is a small right pneumothorax. Marked biapical paraseptal andcentrilobular emphysema. IMPRESSION: 1. Severe atherosclerotic stenosis (70%) of the proximal left in ternal carotid artery. There is also moderate atherosclerotic stenosis at the origin of the left common carotid artery.2. Chronic occlusion of the right internal carotid artery narrowing at the carotid bulb with reconstitution at the intracranial carotid terminus. Associated collateralized vessels inthe right neck.3. Severe atherosclerotic stenosis of the intracranial cavernous and supraclinoid segments of the left internal carotid artery.4. 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 Consider further evaluation with MRI for further characterization. Signed: Zulma Vásquez MDReport Verified Date/Time: 01/01/2020 01:51:54 [facility] [id number] 01:51:00Interface, External Ris In - 01/01/2020 1:55 AM CSTFINAL REPORT EXAM: CT, CAROTID, ANGIO, CT, CTANGIO BRAIN CLINICAL INDICATION: Bilateral asymptomatic carotid stenosis/occlusion. TECHNIQUE: Helical CT of the head without IV contrast. Postcontrast CTA of the head and CTA of the neck with IV contrast. Multiplanar reconstructed images. 3D reconstructions with MIP images were performed. This exam was performed according to our departmental dose-optimization program, which includes automated exposure control, adjustment of the mA and/or kV according to patient size and/or use of iterative reconstruction technique. COMPARISON: None. FINDINGS:CT HEAD: Parenchyma: No infarction. No hemorrhage. No mass or mass effect. Extra-axial Collection: None Ventricular System: Normal Paranasal Sinuses: Mild mucosal thickening of both maxillary antra and bilateral ethmoidal air cells. Tympanomastoid Cavities: Normal Other: Prior right lens surgery CTA HEAD: Anterior Circulation:Rightintracranial internal carotid artery (ICA): The right ICA is occluded with reconstitution at the lamb tid terminus likely from the anterior communicating artery.Right anterior cerebral artery (RAFAELA): NormalRight middle cerebral artery (MCA): Normal Left intracranial internal carotid artery (ICA): Severeatherosclerotic narrowing of the cavernous and supraclinoid segments.Left anterior cerebral artery (RAFAELA): NormalLeft middle cerebral artery (MCA): Normal Anterior communicating artery (AComm): PresentPosterior communicating arteries (PComm): Present bilaterally. Posterior Circulation:Right posterior cerebral artery (SKATING RINK MANAGER): NormalLeft posterior cerebral artery (SKATING RINK MANAGER): Normal Right vertebral artery (VA):Mild atherosclerotic narrowing of the proximal V4 segment with patency distally.Left vertebral artery (VA): NormalBasilar artery (BA): Normal Other: None Dural Venous Sinuses: Normal CTA NECK:Aortic arch and proximal great vessels: Atherosclerotic changes resulting in mild narrowing of the proximal right subclavian artery. Right carotid arterial system: Mild irregular atherosclerotic narrowing of the right common carotid artery. Internal carotid artery is occluded beginning at the carotid bulb.Left carotid arterial system: Moderate atherosclerotic narrowing of the left common carotid artery origin. Severe (70%) proximal internal carotid artery narrowing secondary to atherosclerotic plaque. Right vertebral artery: NormalLeft vertebral artery: Normal Where applicable, evaluation of internal carotid artery (ICA) stenosis was performed using NASCET-like criteria, where the site of greatest stenosis is compared to the diameter of the ICA distal to the stenosis at a point where the ICA maza become parallel. Neck Soft Tissues: Moderate soft tissue emphysema in the right lower neck and imaged right chest wall is likely iatrogenic. There is a left parotid gland lesion that is 1.7 x 1.0 cm. Thereis collateralized vessels in the right neck. Osseous Structures: No acute osseous abnormality. Degen erative changes of the cervical spine with small disc osteophyte complexes, facet arthropathy, and uncovertebral spurring. No evidence of significant stenosis. There is nonspecific sclerosis in the C5 vertebral body. No destructive lesion. Bones are osteopenic. Included Lung Apices: Right chest tube terminates the right lung apex and there is a small right pneumothorax. Marked biapical paraseptal andcentrilobular emphysema. IMPRESSION: 1. Severe atherosclerotic stenosis (70%) of the proximal left internal carotid artery. There is also moderate atherosclerotic stenosis at the origin of the left common carotid artery.2. Chronic occlusion of the right internal carotid artery narrowing at the carotid bulb with reconstitution at the intracranial carotid terminus. Associated collateralized vessels inthe right neck.3. Severe atherosclerotic stenosis of the intracranial cavernous and supraclinoid segments of the left internal carotid artery.4. 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 Consider further evaluation with MRI for further characterization. Signed: Zulma Vásquez MDReport Verified Date/Time: 01/01/2020 01:51:54 [facility]/Doppler(CW/PW/Color)2019-12-31 16:06:18Ejection FractionSLEH ECHO HEARTLAB MKCKESSON CPACSInterface, External Ris In - 12/31/2019 4:06 PM CSTTransthoracic Echocardiography Report (TTE) Demographics Patient Name TERRI PALMA Date of Study 12/30/2019 Gender Male Visit Number [id number] Race Room Number 1050 Number Dateof 1945 Referring Physician guy bowden Age 74 year(s) Sonogra pher Cecilia [place] [facility] Mixing Machine Attendant Neville Graff Interpreting [facility] Needs to bePre Physician Read Jose Johnson MD Procedure Type of Study TTE procedure:2DECHO W DOPPLER(CW/PW/COLOR)(SHONNA) Indications:Known or suspected heart failure.Clinical HistoryCOPD, CA, HTN, PAD, SMOKERHGB 13.0HCT 38.3 %Height: 72 inches Weight: 66.22 kg (146 lbs) BSA: 1.86 m^2 BMI: 19.8 kg/m^2HR: 72 bpm BP:119/56 mmHg Summary The left ventricle is chamber size (by PSLAX dimension) is normal (male - LVIDd 4.2-5.8cm) . Mild concentric LV hypertrophy. All of the LV segments contract normally . Estimated LVEF by qualitative assessment is normal (>60%) . Grade 1 diastolic dysfunction (impaired relaxationand low-normal LA pressure). Estimated peak systolic PA pressure is 30-35 mmHg (normal range) . Signature Findings Left Ventricle The left ventricle is chamber size (by PSLAX dimension) is normal (male - LVIDd 4.2-5.8cm) . Mild concentric LV hypertrophy. All of the LV segments contract normally . Estimated LVEF by qualitative assessment is normal (>60%) . Grade 1 diastolic dysfunction (impaired relaxation and low-normal LA pressure). Left Atrium LA size is mildly enlarged . Right Ventricle Normal right ventricle structure and function. Right Atrium Normal right atrium. Aortic ValveMild AoV cusp thickening. Mitral Valve Mild MV leaflet thickening. Tricuspid Valve Mild tricuspid regurgitation. Estimated peak systolic PA pressure is 30- 35 mmHg (normal range) . Pulmonic Valve Normal PV structure and function by limited views and Doppler. Aorta Aortic root size (SInus of Valsalva diameter) is normal . Pericardium No evidence of pericardial effusion. IVC/SVC/PA/PV/Pleural The estimated RA pressure by IVC dynamics 0- 5mmHg . Chambers/Structures Left Atrium LA Volume: 73.42 ml LA Area: 19.33 cm^2 LA Vol. Index: 39 ml/m^2 Left Ventricle LVIDd: 4.67 cm LVEDV:100.85 ml LVIDs: 3.06 cm LVESV:28.75 ml LV Septum Diastolic: 1.24 cm LVEF 2D Cube: 71.8 % LV PW Diastolic: 1.23 cm LV FS: 34.5 % LVOT Diameter: 2.18 cm LVEF: 71.5 % Doppler/Quantitative Measurements Mitral Valve MV Peak E-Wave: 0.59 m/s MV Peak A-Wave: 0.76 m/s E/A Ratio: 0.78 Peak Gradient: 1.41 mmHg Deceleration T hu: 274.1 msec MV Edd. Peak: Aortic Valve Peak Velocity: 1.62 m/s Mean Velocity: 1.08 m/s Peak Gradient: 10.54 mmHg Mean Gradient: 5.44 mmHg AV Area (continuity): 2.82 cm^2 AV VTI: 34.87 cm AV DVI: 0.76 LVOT Peak Velocity: 1.35 m/s Peak Gradient: 7.24mmHg Mean Velocity: 0.88 m/s Mean Gradient: 3.68 mmHg LVOT Diameter: 2.18 cm LVOT VTI: 26.38 cm LVOT Area: 3.73 cm^2 LVOT SV:98.41 ml LVOT CO: 7.09 l/min LVOT CI: 3.81 l/min/m^2[facility] 2019-12-31 14:26:00 Test Item Value Reference Range Interpretation Comments Troponin I (test code = <0.01 0-0.03 65584-0) ANNELIESE (test code = ANNELIESE) Troponin I (TnI) levels must be interpreted in the context of the presenting symptoms and the clinical findings. Elevated TnI levels indicate myocardial damage, but are not specific for ischemic heart disease. Elevated TnI levels are seen in patients with other cardiac conditions (including myocarditis and congestive heart failure), and slight TnI elevations occur in patients with other conditions, including sepsis, renal failure, acidosis, acute neurological disease, and persistent tachyarrhythmia.Opera tor ID - EDASI Lab Interpretation (test Normal code = 36050-2) [facility] [id number] 14:26:00 Test Item Value Reference Range Interpretation Comments TROPONIN I (BEAKER) (test code = 397) < ng/mL 0.00-0.03 Troponin I (TnI) levels must be interpreted in the context of the presenting symptoms and the clinical findings. Elevated TnI levels indicate myocardial damage, but are not specific for ischemic heart disease. Elevated TnI levels are seen in patients with other cardiac conditions (including myocarditis and congestive heart failure), and slight TnI elevations occur in patients with other conditions, including sepsis, renal failure, acidosis, acute neurological disease, and persistent tachyarrhythmia.Vineyard Supervisor ID - EDASIB-type Natriuretic Factor (BNP)2019-12-31 14:25:00 Test Item Value Reference Range Interpretation Comments BNP (test code = 70584-6) 49 pg/mL 0-100 ANNELIESE (test code = ANNELIESE) Vineyard Supervisor ID - EDASI Lab Interpretation (test Normal code = 85106-6) [facility]2019-12-31 14:25:00 Test Item Value Reference Range Interpretation Comments B-TYPE NATRIURETIC PEPTIDE (BEAKER) 49 pg/mL 0-100 (test code = 700) Vineyard Supervisor ID - EDASIRAD, CHEST, 1 VIEW, NON [id number] 08:50:00Reason for exam:->s/p chest tubeShould this be performed at the bedside?->Yes [facility] 1945 Sex: MFINAL REPORT AP view of the chest dated 12/31/2019 COMPARISON: 12/30/2019 CLINICAL INFORMATION: s/p chest tube Comment: Heart is normal in size. Pulmonary vasculature is unremarkable. Lungs are clear. There is interval resolution previously noted right lower lobe subsegmental atelectasis. No pulmonary infiltrate or pleural effusion is present. Right chest tube remains in place. A tiny right apical pneumothorax is seen. There is subcutaneous emphysema in the right chest wall. Signed: Zulma Strickland MDReport Verified Date/Time: 12/31/2019 08:50:41 Reading Location: [facility] C013Y CT Body Reading Room Carotid doppler [id number] 08:49:22Ejection [facility] ECHO HEARTLAB MKCKESSON CPACSRight Impression1. The internal carotid artery isoccluded.2. There is <50% stenosis in the external carotid artery.3. There is non- occluding plaque in the common carotid artery with elevatedvelocities throughout.4. The vertebral artery flow is antegrade .5. The subclavian artery is patent with a velocity of 232cm/sec.Left Impression1. There is 70-99% diameter reduction (unable to obtain 2-D measurement) inthe internal carotid artery with heterogeneous plaque, a peak velocity of307/108 cm/sec and an ICA/CCA peak systolic velocity ratio of 4.7.2.There is >50% stenosis in the external carotid artery with a velocity [id number]/sec .3. There is >50% stenosis in the common carotid artery with a velocity of131/24cm/sec .4. The vertebral artery flow is antegrade .5. The subclavian artery is patent with a velocity of 51/16cm/sec . Conclusions Summary Carotid duplex scanning and color flow imaging were performed bilaterally. The arteries were adequately visualized. The right internal carotid artery was occluded. The left internal carotid artery had 70-99% hemodynamically significant stenosis (unable to obtain 2-D measurement due to calcific shadowing) with heterogeneous shadowing plaque. The vertebral arteries were patent bilaterally where visualized. The subclavian arteries were patent bilaterally where visualized. Signature Velocities are measured in cm/s ; Diameters are measured in cm Carotid Right Measurements+--- +----+----+-----+ + + +!Locatio n !PSV !EDV !Angle!%Stenosis 2D!%Stenosis Doppler!Tortuosity !+ +----+----+-----+ +-------- ---------+ +!Prox CCA !191 ! !60 ! ! ! !+-- +----+----+-----+ + + +!Dist CCA !150 ! !60 ! ! ! !+ +----+----+-----+ +------- + +!Prox ICA ! ! ! ! !100% ! !+- +----+----+-----+ + + +!Prox ECA !194 !12.5!60 ! ! ! !+ +----+----+-----+ +------ + +!Vertebral !38.6! !60 ! ! ! !+ +----+----+-----+ + + +!Prox Subclavian!232 !!60 ! ! ! !+ +----+----+-----+ + + + - There is antegrade vertebral flow noted on the right side. Carotid Left Measurements+ +----+----+-----+ + +---- -------+!Location !PSV !EDV !Angle!%Stenosis 2D!%Stenosis Doppler!Tortuosity !+ +----+----+-----+---- --------+ + +!Prox CCA !131 !24.2!60 ! ! ! !+ +----+----+-----+ + + +!Di st CCA !65.3!15.9!60 ! ! ! !+ +----+----+-----+--- ---------+ + +!Prox ICA !57.1!15.9!60 ! ! ! !+ +----+----+-----+ + + +!Di st ICA !307 !108 !60 ! !70-99% ! !+ +----+----+-----+-- + + +!Prox ECA !161 ! !60 ! ! ! !+ +----+----+-----+ + + +!Ve rtebral !51.6!16.7!60 ! ! ! !+ +----+----+-----+- + + +!Prox Subclavian!106 ! !60 ! ! ! !+ +----+----+-----+ + + + - There is antegrade vertebral flow noted on the left side. - Additional Measurements:ICAPSV/CCAPSV 4.7.ICAEDV/CCAEDV 4.46. Interface, External Ris In - 12/31/2019 8:49 AM CSTPV LAB - Carotid Duplex Study Demographics Patient Name TERRI PALMA Date of Study 12/30/2019 [id number] Age 74 Visit Number [id number] GenderMale Accession Number [id number] Date of 1945 [facility] Physician TAVARES Barge Worker Shiloh Alvarado [facility] Interpreting Maria Teresa Horan Physician ProcedureType of Study: Cerebral: Carotid, CAROTID DOPPLER, BILATERAL. Indications for Study:Carotid stenosis.Patient Status:Routine.Study Location:Portable.Technical Quality:Adequate visualization.Risk FactorsHistory of Disease+ + + --+!Diagnosis !Date !Comments !+ + + +!History/Risk Factors: !12/30/2019!S/P lung collapse !! ! !Smoker !! ! !H/o carotid stenosis !+ + + +ImpressionsRight Impression1. The internal carotid artery is occluded.2. There is <50% stenosis in the external carotid artery.3. There is non-occluding plaque in the common carotid artery with elevatedvelocities throughout.4. The vertebral artery flow is antegrade .5. The subclavian artery is patent with a velocity of 232cm/sec.Left Impression1. There is 70-99% diameter reduction (unable to obtain 2-D measurement) inthe internal carotid artery with heterogeneous plaque, a peak velocity of307/108 cm/sec and an ICA/CCA peak systolic velocity ratio of 4.7.2. There is >50% stenosis in the external carotid artery with a velocity zw538ce/sec .3. There is >50% stenosis in the common carotid artery with a velocity of131/24cm/sec .4. The vertebral artery flow is antegrade .5. The subclavian artery is patent with a velocity of 51/16cm/sec . Conclusions Summary Carotid duplex scanning and color flow imaging were performed bilaterally. The arteries were adequately visualized. The right internal carotid artery was occluded. The left internal carotid artery had 70-99% hemodynamically significant stenosis (unable to obtain 2-D measurement due to calcific shadowing) with heterogeneous shadowing plaque. The vertebral arteries were patent bilaterally where visualized. The subclavian arteries were patent bilaterally where visualized. Signature -------- Velocities are measured in cm/s ; Diameters are measured in cmCarotid Right Measurements+ +----+----+-----+ + + +!Loca tion !PSV !EDV!Angle!%Stenosis 2D!%Stenosis Doppler!Tortuosity !+ +----+----+-----+ +----- + +!Prox CCA !191 ! !60 ! ! ! ! + +----+----+-----+ + + +!Dis t CCA !150 ! !60 ! ! ! !+ +----+----+-----+ +---- + +!Prox ICA ! ! ! ! !100% ! !+ +----+----+-----+ + + +!Pr ox ECA !194 !12.5!60 ! ! ! !+ +----+----+-----+ +--- + +!Vertebral !38.6! !60 ! ! ! !+ +----+----+-----+ + + +!Pr ox Subclavian!232 ! !60 ! ! ! !+ +----+----+-----+ + + + - There is antegrade vertebral flow noted on the right side.Carotid Left Measurements+ +----+----+-----+ + +---- -------+!Location !PSV !EDV !Angle!%Stenosis 2D!%Stenosis Doppler!Tortuosity !+ +----+----+-----+--- ---------+ + +!Prox CCA !131 !24.2!60 ! ! ! !+ +----+----+-----+ + + +!Di st CCA !65.3!15.9!60 ! ! ! !+ +----+----+-----+-- + + +!Prox ICA !57.1!15.9!60 ! ! ! !+ +----+----+-----+ + + +!Di st ICA !307 !108 !60 ! !70-99% ! !+ +----+----+-----+- + + +!Prox ECA !161 ! !60 ! ! ! !+ +----+----+-----+ + + +!Ve rtebral !51.6!16.7!60 ! ! ! !+ +----+----+-----+ + + +!Prox Subclavian!106 ! !60 ! ! ! !+ +----+----+-----+ + + + - There is antegrade vertebral flow noted on the left side. - Additional Measurements:ICAPSV/CCAPSV 4.7.ICAEDV/CCAEDV 4.46.[facility] BASIC METABOLIC [id number] 06:54:00 Test Item Value Reference Range Interpretation Comments SODIUM (BEAKER) 132 meq/L 136-145 L (test code = 381) POTASSIUM (BEAKER) 4.1 meq/L 3.5-5.1 (test code = 379) CHLORIDE (BEAKER) 96 meq/L 98-107 L (test code = 382) CO2 (BEAKER) (test 30 meq/L 22-29 H code = 355) BLOOD UREA NITROGEN 15 mg/dL 7-21 (BEAKER) (test code = 354) CREATININE (BEAKER) 0.82 mg/dL 0.57-1.25 (test code = 358) GLUCOSE RANDOM 89 mg/dL 70-105 (BEAKER) (test code = 652) CALCIUM (BEAKER) 8.4 mg/dL 8.4-10.2 (test code = 697) EGFR (BEAKER) (test 92 mL/min/1.73 ESTIMA AMAURY GFR IS code = 1092) sq m NOT ACCURATE CREATININE CLEARANCE IN PREDICTING GLOMERULAR FILTRATION RATE . ESTIMATED GFR I S NOT APPLICABLE FOR DIALYSIS PATIEN TS. Vineyard Supervisor ID - [id number] 06:54:00 Test Item Value Reference Range Interpretation Comments MAGNESIUM (BEAKER) (test code = 2.0 mg/dL 1.6-2.6 627) Vineyard Supervisor ID - [id number] 06:54:00 Test Item Value Reference Range Interpretation Comments PHOSPHORUS (BEAKER) (test code = 3.6 mg/dL 2.3-4.7 604) Vineyard Supervisor ID - EDASICBC (HEMOGRAM ONLY)2019-12-31 06:02:00 Test Item Value Reference Range Interpretation Comments WHITE BLOOD CELL COUNT (BEAKER) 6.6 K/ L 3.5-10.5 (test code = 775) RED BLOOD CELL COUNT (BEAKER) 3.80 M/ L 4.63-6.08 L (test code = 761) HEMOGLOBIN (BEAKER) (test code = 12.3 GM/DL 13.7-17.5 L 410) HEMATOCRIT (BEAKER) (test code = 36.3 % 40.1-51.0 L 411) MEAN CORPUSCULAR VOLUME (BEAKER) 95.5 fL 79.0-92.2 H (test code = 753) MEAN CORPUSCULAR HEMOGLOBIN 32.4 pg 25.7-32.2 H (BEAKER) (test code = 751) MEAN CORPUSCULAR HEMOGLOBIN CONC 33.9 GM/DL 32.3-36.5 (BEAKER) (test code = 752) RED CELL DISTRIBUTION WIDTH 14.7 % 11.6-14.4 H (BEAKER) (test code = 412) PLATELET COUNT (BEAKER) (test 238 K/CU MM 150-450 code = 756) MEAN PLATELET VOLUME (BEAKER) 8.6 fL 9.4-12.4 L (test code = 754) NUCLEATED RED BLOOD CELLS 0 /100 WBC 0-0 (BEAKER) (test code = 413) CT, [id number] 11:19:00Unlisted Reason for Exam - Click Yes and Enter Reason Below->YesUnlisted Reason for Exam->[facility] of esophageal [facility] 1945 Sex: MFINAL REPORT History: Esophageal cancer, pneumothorax. TECHNIQUE: Helical CT of the chest abdomen and pelvis were performed following the uneventful administration of intravenous contrast utilizing multiple windows, sagittal and coronal reformations. This exam was performed according to our departmental dose optimization program which includes automated exposure control, adjustment of the mA and/or KV according to the patient's size and/or use of iterative reconstruction technique. FINDINGS: No prior CTs are available for comparison. Chest CT: Mild to moderate atherosclerotic calcification of the aorta and great vessels is seen. Heart size is normal. Mild atherosclerotic c alcification of the coronary arteries is present. No mediastinal or hilar masses or adenopathy. Central airways are patent. A moderate size right pneumothorax is present despite the presence of a rightchest tube which appears in expected position. Subpleural bulla are noted in the right upper lobe and lung apex. A moderate size right pleural effusion is present. More focal opacity is present in the right lower lobe, likely atelectasis. The left lung remains relatively clear except for a small left-sided effusion. Mild scarring in the left lingula is noted. No suspicious pulmonary nodules or massesare identified. Small subpleural blebs are noted near the lung apex on the left. Mild diffuse emphyse ma is present. Moderate diffuse subcutaneous emphysema is present in the right lateral chest wall extending superiorly into the cervical soft tissues and supraclavicular area. Bones are unremarkable. Abdominal CT: The solid abdominal organs including liver, spleen, kidneys, pancreas and adrenal glandsare unremarkable. Gallbladder is contracted but otherwise normal. No evidence for acute biliary abnormalities. Stomach, visible portions of small bowel and colon are normal. No evidence for obstructionor free air to suggest perforation. Diffuse atherosclerotic calcification of the aorta is present. Moderate diffuse degenerative changes of the spine are seen. Vessels and bones are otherwise unremarkable. Pelvic CT: Scattered colonic diverticulosis is present without evidence for acute diverticulitisor other acute inflammatory processes of the pelvis. The appendix is not definitively identified. Other pelvic organs including the rectum, prostate gland and urinary bladder are unremarkable. No pelvic fluid collections or pathologic adenopathy. Diffuse atherosclerotic calcification of the iliofemoral arteries is seen. Bones are unremarkable. IMPRESSION: 1. Moderate size right pneumothorax despite the presence of a right chest tube. Moderate right chest wall and cervical subcutaneous emphysema is al so seen. 2. Moderate right and small left pleural effusions and probable right lower lobe atelectasis. 3. Emphysema and multiple small subpleural blebs, most in the upper lobes and lung apices. 4. Diffuse atherosclerosis. 5. Sigmoid diverticulosis without evidence for acute diverticulitis or other acute abnormalities of the abdomen or pelvis. Signed: Sherman Bedoyaort Verified Date/Time: 12/30/2019 11:19:18 Reading Location: [facility] [address] [place] [address], CHEST, WITH [id number] 11:19:00Unlisted Reason for Exam - Click Yes and Enter Reason Below->YesUnlisted Reason for Exam->h/o e sophageal cancer, c/f perforation?; also look for pulm blebs [facility] 1945 Sex: MFINAL REPORT History: Esophageal cancer, pneumothorax. TECHNIQUE: Helical CT of the chest abdomen and pelvis were performed following the uneventful administration of intravenous contrast utilizing multiple windows, sagittal and coronal reformations. This exam was performed according to our departmental dose optimization program which includes automated exposure control, adjustment of the mA and/or KV according to the patient's size and/or use of iterative reconstruction technique. FINDINGS: No prior CTs are available for comparison. Chest CT: Mild to moderate atherosclerotic calcification of the aorta and great vessels is seen. Heart size is normal. Mild atherosclerotic c alcification of the coronary arteries is present. No mediastinal or hilar masses or adenopathy. Central airways are patent. A moderate size right pneumothorax is present despite the presence of a rightchest tube which appears in expected position. Subpleural bulla are noted in the right upper lobe and lung apex. A moderate size right pleural effusion is present. More focal opacity is present in the right lower lobe, likely atelectasis. The left lung remains relatively clear except for a small left-sided effusion. Mild scarring in the left lingula is noted. No suspicious pulmonary nodules or massesare identified. Small subpleural blebs are noted near the lung apex on the left. Mild diffuse emphyse ma is present. Moderate diffuse subcutaneous emphysema is present in the right lateral chest wall extending superiorly into the cervical soft tissues and supraclavicular area. Bones are unremarkable. Abdominal CT: The solid abdominal organs including liver, spleen, kidneys, pancreas and adrenal glandsare unremarkable. Gallbladder is contracted but otherwise normal. No evidence for acute biliary abnormalities. Stomach, visible portions of small bowel and colon are normal. No evidence for obstructionor free air to suggest perforation. Diffuse atherosclerotic calcification of the aorta is present. Moderate diffuse degenerative changes of the spine are seen. Vessels and bones are otherwise unremarkable. Pelvic CT: Scattered colonic diverticulosis is present without evidence for acute diverticulitisor other acute inflammatory processes of the pelvis. The appendix is not definitively identified. Other pelvic organs including the rectum, prostate gland and urinary bladder are unremarkable. No pelvic fluid collections or pathologic adenopathy. Diffuse atherosclerotic calcification of the iliofemoral arteries is seen. Bones are unremarkable. IMPRESSION: 1. Moderate size right pneumothorax despite the presence of a right chest tube. Moderate right chest wall and cervical subcutaneous emphysema is al so seen. 2. Moderate right and small left pleural effusions and probable right lower lobe atelectasis. 3. Emphysema and multiple small subpleural blebs, most in the upper lobes and lung apices. 4. Diffuse atherosclerosis. 5. Sigmoid diverticulosis without evidence for acute diverticulitis or other acute abnormalities of the abdomen or pelvis. Signed: Sherman Bedoya MDReport Verified Date/Time: 12/30/2019 11:19:18 Reading Location: [address] Transitional Reading Room CT chest with IV [id number] 11:19:00Interface, External Ris In - 12/30/2019 11:21 AM CSTFINAL REPORT History: Esophageal cancer, pneumothorax. TECHNIQUE: Helical CT of the chest abdomen and pelvis were performed following the uneventful administration of intravenous contrast utilizing multiple windows, sagittal and coronal reformations. This exam was performed according to our departmental dose optimization program which includes automated exposure control, adjustment of the mA and/or KV according to the patient's size and/or use of iterative reconstruction technique. FINDINGS: No prior CTs are available for comparison. Chest CT: Mild to moderate atherosclerotic calcification of the aorta and great vessels isseen. Heart size is normal. Mild atherosclerotic calcification of the coronary arteries is present. No mediastinal or hilar masses or adenopathy. Central airways are patent. A moderate size right pneumothorax is present despite the presence of a right chest tube which appears in expected position. Subpleural bulla are noted in the right upper lobe and lung apex. A moderate size right pleural effusionis present. More focal opacity is present in the right lower lobe, likely atelectasis. The left lungremains relatively clear except for a small left-sided effusion. Mild scarring in the left lingula is noted. No suspicious pulmonary nodules or masses are identified. Small subpleural blebs are noted near the lung apex on the left. Mild diffuse emphysema is present. Moderate diffuse subcutaneous emphysema is present in the right lateral chest wall extending superiorly into the cervical soft tissues and supraclavicular area. Bones are unremarkable. Abdominal CT: The solid abdominal organs including liver, spleen, kidneys, pancreas and adrenal glands are unremarkable. Gallbladder is contracted but otherwise normal. No evidence for acute biliary abnormalities. Stomach, visible portions of small boweland colon are normal. No evidence for obstruction or free air to suggest perforation. Diffuse atherosclerotic calcification of the aorta is present. Moderate diffuse degenerative changes of the spine are seen. Vessels and bones are otherwise unremarkable. Pelvic CT: Scattered colonic diverticulosis ispresent without evidence for acute diverticulitis or other acute inflammatory processes of the pelvis. The appendix is not definitively identified. Other pelvic organs including the rectum, prostate gland and urinary bladder are unremarkable. No pelvic fluid collections or pathologic adenopathy. Diffuse atherosclerotic calcification of the iliofemoral arteries is seen. Bones are unremarkable. IMPRESSION: 1. Moderate size right pneumothorax despite the presence of a right chest tube. Moderate right chest wall and cervical subcutaneous emphysema is also seen. 2. Moderate right and small left pleural e ffusions and probable right lower lobe atelectasis. 3. Emphysema and multiple small subpleural blebs, most in the upper lobes and lung apices. 4. Diffuse atherosclerosis. 5. Sigmoid diverticulosis without evidence for acute diverticulitis or other acute abnormalities of the abdomen or pelvis. Signed: Sherman Demarco MDReport Verified Date/Time: 12/30/2019 11:19:18 Reading Location: [facility] C013T Transitional [facility] [id number] 11:19:00Interface, External Ris In - 12/30/2019 11:21 AM CSTFINAL REPORT History: Esophageal cancer, pneumothorax. TECHNIQUE: Helical CT of the chest abdomen and pelvis were performed following the uneventful administration of intravenous contrast utilizing multiple windows, sagittal and coronal reformations. This exam was performed according to our departmental dose optimization program which includes automated exposure control, adjustment of the mA and/or KV according to the patient's size and/or use of iterative reconstruction technique. FINDINGS: No prior CTs are available for comparison. Chest CT: Mild to moderate atherosclerotic calcification of the aorta and great vessels isseen. Heart size is normal. Mild atherosclerotic calcification of the coronary arteries is present. No mediastinal or hilar masses or adenopathy. Central airways are patent. A moderate size right pneumothorax is present despite the presence of a right chest tube which appears in expected position. Subpleural bulla are noted in the right upper lobe and lung apex. A moderate size right pleural effusionis present. More focal opacity is present in the right lower lobe, likely atelectasis. The left lungremains relatively clear except for a small left-sided effusion. Mild scarring in the left lingula is noted. No suspicious pulmonary nodules or masses are identified. Small subpleural blebs are noted near the lung apex on the left. Mild diffuse emphysema is present. Moderate diffuse subcutaneous emphysema is present in the right lateral chest wall extending superiorly into the cervical soft tissues and supraclavicular area. Bones are unremarkable. Abdominal CT: The solid abdominal organs including liver, spleen, kidneys, pancreas and adrenal glands are unremarkable. Gallbladder is contracted but otherwise normal. No evidence for acute biliary abnormalities. Stomach, visible portions of small boweland colon are normal. No evidence for obstruction or free air to suggest perforation. Diffuse atherosclerotic calcification of the aorta is present. Moderate diffuse degenerative changes of the spine are seen. Vessels and bones are otherwise unremarkable. Pelvic CT: Scattered colonic diverticulosis ispresent without evidence for acute diverticulitis or other acute inflammatory processes of the pelvis. The appendix is not definitively identified. Other pelvic organs including the rectum, prostate gland and urinary bladder are unremarkable. No pelvic fluid collections or pathologic adenopathy. Diffuse atherosclerotic calcification of the iliofemoral arteries is seen. Bones are unremarkable. IMPRESSION: 1. Moderate size right pneumothorax despite the presence of a right chest tube. Moderate right chest wall and cervical subcutaneous emphysema is also seen. 2. Moderate right and small left pleural e ffusions and probable right lower lobe atelectasis. 3. Emphysema and multiple small subpleural blebs, most in the upper lobes and lung apices. 4. Diffuse atherosclerosis. 5. Sigmoid diverticulosis without evidence for acute diverticulitis or other acute abnormalities of the abdomen or pelvis. Signed: Sherman Demarco MDReport Verified Date/Time: 12/30/2019 11:19:18 Reading Location: [address] Transitional Reading [facility]2019-12-30 02:43:00 Test Item Value Reference Range Interpretation Comments Total CK (test code = 126 U/L 29-200 2157-6) ANNELIESE (test code = ANNELIESE) Vineyard Supervisor ID - ADMIN Lab Interpretation (test Normal code = 71646-5) [facility] [id number] 02:43:00 Test Item Value Reference Range Interpretation Comments SODIUM (BEAKER) 129 meq/L 136-145 L (test code = 381) POTASSIUM (BEAKER) 4.2 meq/L 3.5-5.1 (test code = 379) CHLORIDE (BEAKER) 92 meq/L 98-107 L (test code = 382) CO2 (BEAKER) (test 28 meq/L 22-29 code = 355) BLOOD UREA NITROGEN 8 mg/dL 7-21 (BEAKER) (test code = 354) CREATININE (BEAKER) 0.75 mg/dL 0.57-1.25 (test code = 358) GLUCOSE RANDOM 119 mg/dL 70-105 H (BEAKER) (test code = 652) CALCIUM (BEAKER) 8.9 mg/dL 8.4-10.2 (test code = 697) EGFR (BEAKER) (test 102 mL/min/1.73 ESTIM ATED GFR IS code = 1092) sq m NOT ACCURATE CREATININE CLEARANCE IN PREDICTING GLOMERULAR FILTRATION RATE . ESTIMATED GFR I S NOT APPLICABLE FOR DIALYSIS PATIEN TS. Vineyard Supervisor ID - [id number] 02:43:00 Test Item Value Reference Range Interpretation Comments MAGNESIUM (BEAKER) (test code = 1.9 mg/dL 1.6-2.6 627) Vineyard Supervisor ID - [id number] 02:43:00 Test Item Value Reference Range Interpretation Comments PHOSPHORUS (BEAKER) (test code = 2.6 mg/dL 2.3-4.7 604) Vineyard Supervisor ID - ADMINCREATINE KINASE (CK)2019-12-30 02:43:00 Test Item Value Reference Range Interpretation Comments CREATINE KINASE TOTAL (BEAKER) (test 126 U/L 29-200 code = 380) Vineyard Supervisor ID - ADMINB-TYPE NATRIURETIC FACTOR (BNP)2019-12-30 02:38:00 Test Item Value Reference Range Interpretation Comments B-TYPE NATRIURETIC PEPTIDE (BEAKER) 143 pg/mL 0-100 H (test code = 700) Vineyard Supervisor ID - ADMINTROPONIN [id number] 02:37:00 Test Item Value Reference Range Interpretation Comments TROPONIN I (BEAKER) (test code = 0.04 ng/mL 0.00-0.03 H 397) Troponin I (TnI) levels must be interpreted in the context of the presenting symptoms and the clinical findings. Elevated TnI levels indicate myocardial damage, but are not specific for ischemic heart disease. Elevated TnI levels are seen in patients with other cardiac conditions (including myocarditis and congestive heart failure), and slight TnI elevations occur in patients with other conditions, including sepsis, renal failure, acidosis, acute neurological disease, and persistent tachyarrhythmia.Vineyard Supervisor ID - ADMINCBC W/PLT COUNT & AUTO [id number] 02:16:00 Test Item Value Reference Range Interpretation Comments WHITE BLOOD CELL COUNT (BEAKER) 13.5 K/ L 3.5-10.5 H (test code = 775) RED BLOOD CELL COUNT (BEAKER) 4.05 M/ L 4.63-6.08 L (test code = 761) HEMOGLOBIN (BEAKER) (test code = 13.0 GM/DL 13.7-17.5 L 410) HEMATOCRIT (BEAKER) (test code = 38.3 % 40.1-51.0 L 411) MEAN CORPUSCULAR VOLUME (BEAKER) 94.6 fL 79.0-92.2 H (test code = 753) MEAN CORPUSCULAR HEMOGLOBIN 32.1 pg 25.7-32.2 (BEAKER) (test code = 751) MEAN CORPUSCULAR HEMOGLOBIN CONC 33.9 GM/DL 32.3-36.5 (BEAKER) (test code = 752) RED CELL DISTRIBUTION WIDTH 14.3 % 11.6-14.4 (BEAKER) (test code = 412) PLATELET COUNT (BEAKER) (test 251 K/CU MM 150-450 code = 756) MEAN PLATELET VOLUME (BEAKER) 8.5 fL 9.4-12.4 L (test code = 754) NUCLEATED RED BLOOD CELLS 0 /100 WBC 0-0 (BEAKER) (test code = 413) NEUTROPHILS RELATIVE PERCENT 88 % (BEAKER) (test code = 429) LYMPHOCYTES RELATIVE PERCENT 4 % (BEAKER) (test code = 430) MONOCYTES RELATIVE PERCENT 6 % (BEAKER) (test code = 431) EOSINOPHILS RELATIVE PERCENT 1 % (BEAKER) (test code = 432) BASOPHILS RELATIVE PERCENT 0 % (BEAKER) (test code = 437) NEUTROPHILS ABSOLUTE COUNT 11.94 K/ L 1.78-5.38 H (BEAKER) (test code = 670) LYMPHOCYTES ABSOLUTE COUNT 0.55 K/ L 1.32-3.57 L (BEAKER) (test code = 414) MONOCYTES ABSOLUTE COUNT (BEAKER) 0.79 K/ L 0.30-0.82 (test code = 415) EOSINOPHILS ABSOLUTE COUNT 0.15 K/ L 0.04-0.54 (BEAKER) (test code = 416) BASOPHILS ABSOLUTE COUNT (BEAKER) 0.04 K/ L 0.01-0.08 (test code = 417) IMMATURE GRANULOCYTES-RELATIVE 0 % 0-1 PERCENT (BEAKER) (test code = 2801) RAD, CHEST, 1 VIEW, NON [id number] 01:08:00Reason for exam:->pneumothorax s/p chest tubeShould this be performed at the bedside?->Yes [facility] : 1945 Sex: MFINAL REPORT Chest one view. Clinical history: pneumothorax s/p chest tubeComparison: None. Technique: A single frontal view of the chest was obtained. Findings:There is a right chest tube with tip in the right lung apex.The heart is normal size. The aorta is atherosclerotic. There is a small right apical pneumothorax. There is mild diffuse bowel interstitial prominence, nonspecific. There is a small right pleural effusion. There are multiple age- indeterminate right-sidedrib fractures. There is diffuse subcutaneous emphysema in the right chest wall. 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 Unchanged smooth pericardial thickening.Extensive centrilobular and panlobular emphysema bilaterally. Atheromatouscalcification of the thoracic and abdominal aorta and its main branches.Multiple colonic diverticula are seen, without associated inflammatory changes.A stable punctate soft tissue nodule is identified along the anterioraspect ofthe anterior segment of the right superior [...] known Warthin'stumor.--This report was dictated by a Cartridge Filler/Fellow/Physician Functional Skills Tutor. Ihave personallyreviewed the images as well as the interpretation and agree with the findings.Read by: Frederic No Resident/Fellow/PhysicianAssistant: Frederic Noictated Date/time: 03/01/19 12:47Electronically Signed by: Tiffanie Luke MD 03/01/2014:46FINAL REPORTUnBlue Mountain Hospital
--- NOTE | 2020-06-12 08:55 | ER ---
Nurse's Notes [facility] Name: Lei Timmons Age: 74 yrs Sex: Male : 1945 Arrival Date: 06/12/2020 Time: 08:11 Bed 17 Private MD: Diagnosis: Cellulitis of right upper limb-elbow;Hypertensive heart disease-Poorly controlled Presentation: 06/12 08:21 Chief complaint: Patient states: R elbow swelling that began 1 week ago. Pt was seen by ss Dr. Sevilla office yesterday and was told to come to ER for further evaluation and treatment/ possible admission for IV antibiotics. Denies pain/ fever. Coronavirus screen: Client denies travel out of the [place] in the last 14 days. Ebola Screen: Patient denies exposure to infectious person. Patient denies travel to an Ebola-affected area in the 21 days before illness onset. Initial Sepsis Screen: Does the patient meet any 2 criteria? No. Patient's initial sepsis screen is negative. Does the patient have a suspected source of infection? No. Patient's initial sepsis screen is negative. Risk Assessment: Do you want to hurt yourself or someone else? Patient reports no desire to harm self or others. Onset of symptoms was June 05, 2020. 08:21 Method Of Arrival: Ambulatory 08:21 Acuity: ALYSON 3 ss Historical: - Allergies: 08:23 Morphine; ss - PMHx: 08:23 Cancer; ESOPHAGEAL; COPD; Hypertension; ss - Immunization history:: Adult Immunizations not up to date. - Social history:: Smoking status: Patient reports the use of cigarette tobacco products, smokes one pack cigarettes per day. Screenin:51 Abuse screen: Denies threats or abuse. Denies injuries from another. Nutritional tr6 screening: No deficits noted. Tuberculosis screening: No symptoms or risk factors identified. Fall Risk Fall in past 12 months (25 points). Assessment: 08:25 General: Appears in no apparent distress. comfortable, Behavior is calm, cooperative, tr6 appropriate for age. Pain: Denies pain. Neuro: No deficits noted. Cardiovascular: No deficits noted. Respiratory: No deficits noted. GI: No deficits noted. : No deficits noted. EENT: No deficits noted. Derm: Reports pt fell about a week ago and noticed swelling to his right elbow. pt reports that PMD sent him to the ED for f/u due to puss coming from elbow. pt denies any pain or fever. noted swelling and redness to right elbow to right hand. pt reports that yesterday his right hand was swollen, but he "took a water pill and the fluid oozed out.". Musculoskeletal: No deficits noted. Injury Description: swelling to elbow. 08:50 Reassessment: MD Wilkinson at bedside. tr6 Vital Signs: 08:21 BP 191 / 78; Pulse 61; Resp 18; Temp 98.2(TE); Pulse Ox 97% on R/A; Weight 70.76 kg; ss Pain 0/10; ED Course: 08:11 Patient arrived in ED. mr 08:18 Lalo Wilkinson MD is Attending Physician. kdr 08:22 Triage completed. ss 08:23 Arm band placed on right wrist. ss 08:51 Patient has correct armband on for positive identification. Bed in low position. Call tr6 light in reach. 08:51 No provider procedures requiring assistance completed. Patient did not have IV access tr6 during this emergency room visit. Administered Medications: 08:56 Drug: Ancef (cefazolin) 1 grams Route: IM; Site: left deltoid; tr6 09:10 Follow up: Response: No adverse reaction tr6 Outcome: 08:54 Discharge ordered by . kdr 08:56 Discharged to home ambulatory. tr6 08:56 Condition: good 08:56 Discharge instructions given to patient. 09:10 Patient left the ED. tr6 Signatures: Lalo Wilkinson MD MD [facility] Suyapa Najera mr Dora Feliz RN RN Sola Green RN RN tr6 Corrections: (The following items were deleted from the chart) 08:34 08:25 Derm: Reports pt fell about a week ago and noticed swelling to his elbow. pt tr6 reports that PMD sent him to the ED for f/u due to puss coming from elbow. pt denies any pain or fever tr6
--- NOTE | 2020-06-12 08:55 | EDPHYS ---
Physician Documentation [facility] Name: Lei Timmons Age: 74 yrs Sex: Male : 1945 Arrival Date: 06/12/2020 Time: 08:11 Bed 17 Private MD: ED Physician Lalo Wilkinson HPI: 06/12 08:43 This 74 yrs old Male presents to ER via Ambulatory with complaints of Elbow kdr Swelling. 08:43 The patient or guardian complains of an abscess, small, swelling. The complaints affect kdr the right elbow. Context: The problem was sustained at home, resulted from unknown cause. Onset: The symptoms/episode began/occurred gradually, 1 week(s) ago. Treatment prior to arrival includes: no previous treatment. Modifying factors: The symptoms are alleviated by nothing. the symptoms are aggravated by nothing. Associated signs and symptoms: The patient has no apparent associated signs or symptoms. Severity of symptoms: At their worst the symptoms were mild, in the emergency department the symptoms are unchanged. The patient has not experienced similar symptoms in the past. The patient has been recently seen by a physician: the patient's primary care provider, He was told to come to the ED for IV abx. Historical: - Allergies: 08:23 Morphine; ss - PMHx: 08:23 Cancer; ESOPHAGEAL; COPD; Hypertension; ss - Immunization history:: Adult Immunizations not up to date. - Social history:: Smoking status: Patient reports the use of cigarette tobacco products, smokes one pack cigarettes per day. ROS: 08:43 Constitutional: Negative for fever, chills, and weight loss, Eyes: Negative for injury, kdr pain, redness, and discharge. 08:43 MS/extremity: Positive for erythema, swelling, of the right elbow, Negative for decreased range of motion, deformity, ecchymosis, pain, tenderness, warmth. Exam: 08:43 Constitutional: This is a well developed, well nourished patient who is awake, alert, kdr and in no acute distress. Head/Face: Normocephalic, atraumatic. 08:43 Musculoskeletal/extremity: Extremities: grossly normal except: noted in the right elbow: abrasion, erythema, swelling, Unable to express any fluid from the wound and there does not appear to be any residual retained fluid/puss. There is absolutely no pain in the elbow and no limitation to movement or pain with movement. Vital Signs: 08:21 BP 191 / 78; Pulse 61; Resp 18; Temp 98.2(TE); Pulse Ox 97% on R/A; Weight 70.76 kg; ss Pain 0/10; MDM: 08:43 Data reviewed: vital signs, nurses notes. Response to treatment: the patient's symptoms kdr have mildly improved after treatment. Special discussion: I have referred the patient to see his PCP for further evaluation of high blood pressure. I discussed with the patient/guardian in detail that at this point there is no indication for admission to the hospital. It is understood, however, that if the symptoms persist or worsen the patient needs to return immediately for re-evaluation. I discussed in detail with the patient the higher chance of wound infection based on his presenting history. ED course: The patient was stable and non-diabetic. Will attempt outpatient treatment initially. 08:54 Patient medically screened. kdr Administered Medications: 08:56 Drug: Ancef (cefazolin) 1 grams Route: IM; Site: left deltoid; tr6 09:10 Follow up: Response: No adverse reaction tr6 Disposition: 06/12/20 08:54 Discharged to Home. Impression: Cellulitis of right upper limb - elbow, Hypertensive heart disease - Poorly controlled. - Condition is Stable. - Discharge Instructions: Cellulitis, Adult, Hypertension, [id number]. - Prescriptions for Keflex 500 mg Oral Capsule - take 1 capsule by ORAL route every 6 hours for 10 days; 40 capsule. - Medication Reconciliation Form, Thank You Letter, Antibiotic Education form. - Follow up: Private Physician; When: 2 - 3 days; Reason: If symptoms return, Further diagnostic work-up, Recheck today's complaints, Continuance of care, Re-evaluation by your physician. - Problem is new. - Symptoms have improved. Signatures: Lalo Wilkinson MD MD kdr Smirch, Shelby, RN RN Sola Green RN RN tr6 Corrections: (The following items were deleted from the chart) 09:10 08:54 06/12/2020 08:54 Discharged to Home. Impression: Cellulitis of right upper limb - tr6 elbow; Hypertensive heart disease - Poorly controlled. Condition is Stable. Forms are Medication Reconciliation Form, Thank You Letter, Antibiotic Education, Prescription Opioid Use. Follow up: Private Physician; When: 2 - 3 days; Reason: If symptoms return, Further diagnostic work-up, Recheck today's complaints, Continuance of care, Re-evaluation by your physician. Problem is new. Symptoms have improved. kdr
[2020-06-12] MEDS ORDERED: CEFAZOLIN SODIUM 1 GM/VIAL ONE (09:05)
[2020-06-12] MEDS ORDERED: WATER FOR INJ,STERILE 10 ML ONE (09:08)
[2020-06-12 09:16] VITALS: BP 191/78; TEMP 98.2; O2SAT 97
== END 2020-06-12 09:10 | disposition home or self-care (01) ==
LOC: ER 08:07
DX: L03.113 Cellulitis of right upper limb (principal); I11.9 Hypertensive heart disease without heart failure; I10 Essential (primary) hypertension; F17.210 Nicotine dependence, cigarettes, uncomplicated; Z88.5 Allergy status to narcotic agent
CPT/HCPCS: 96372; 99283; J0690